=== PATIENT | male | born 1940 | race Caucasian/White ===

== ENCOUNTER → 2018-03-14 | Outpatient (REF) | payer MEDICARE ==
[2018-03-14 19:57] LABS: BASO % 0.4 % (0.0-1.0); EOS # 0.1 10^3/uL (0.0-0.50); EOS % 1.7 % (0.0-3.0); HEMATOCRIT 40.1 % (42.0-52.0); HEMOGLOBIN 13.5 g/dl (13.5-17.5); IMMATURE GRANULOCYTE % 0.4 % (0-3.0); LYMPH # 1.8 10^3/uL (1.5-4.5); LYMPH % 25.4 % (24.0-44.0); MEAN CORPUSCULAR HEMOGLOBIN 32.6 pg (27.0-33.0); MEAN CORPUSCULAR HGB CONC 33.7 g/dl (32.0-36.5); MEAN CORPUSCULAR VOLUME 96.9 fl (80.0-96.0); MONO % 14.6 % (0.0-5.0); NEUTROPHILS # 4.1 10^3/uL (1.8-7.7); NEUTROPHILS % 57.5 % (36.0-66.0); PLATELET COUNT, AUTOMATED 199 10^3/uL (150-450); RED BLOOD COUNT 4.14 10^6/uL (4.30-6.10); RED CELL DISTRIBUTION WIDTH 14.3 % (11.5-14.5); WHITE BLOOD COUNT 7.1 10^3/uL (4.0-10.0)
[2018-03-14 20:17] LABS: ESTIMATED AVERAGE GLUCOSE 123 MG/DL (60-110); HEMOGLOBIN A1c 5.9 %
[2018-03-14 20:23] LABS: ALBUMIN 3.5 GM/DL (3.2-5.2); ALKALINE PHOSPHATASE 89 U/L (45-117); ALT/SGPT 32 U/L (12-78); ANION GAP 9 MEQ/L (8-16); AST/SGOT 23 U/L (7-37); BILIRUBIN,TOTAL 0.3 MG/DL (0.2-1.0); BLOOD UREA NITROGEN 25 MG/DL (7-18); CALCIUM LEVEL 8.7 MG/DL (8.8-10.2); CARBON DIOXIDE LEVEL 26 MEQ/L (21-32); CHLORIDE LEVEL 109 MEQ/L (98-107); CHOLESTEROL LEVEL 210 MG/DL (<200); CHOLESTEROL RISK RATIO 4.772 (<5); CREATININE FOR GFR 1.33 MG/DL (0.70-1.30); GLOMERULAR FILTRATION RATE 55.2 (>42); GLUCOSE, FASTING 114 MG/DL (70-100); HDL CHOLESTEROL 44 MG/DL (>40); LDL CHOLESTEROL 132.8 MG/DL (<100); NON-HDL-C 166 MG/DL; POTASSIUM SERUM 4.4 MEQ/L (3.5-5.1); SODIUM LEVEL 144 MEQ/L (136-145); TRIGLYCERIDES LEVEL 166 MG/DL (<150)
[2018-03-14 20:36] LABS: MALB URINE SIEMENS 16.1 MG/L; MAU/CREAT RATIO 12.2 MCG/MG (0.0-30.0)
== END ==
LOC: M SFHCLERA 15:14
DX: I10 Essential (primary) hypertension (principal); M79.89 Other specified soft tissue disorders; Z51.81 Encounter for therapeutic drug level monitoring; Z79.01 Long term (current) use of anticoagulants; F43.21 Adjustment disorder with depressed mood; Z86.718 Personal history of other venous thrombosis and embolism
CPT/HCPCS: 84443

== ENCOUNTER → 2018-10-03 | Outpatient (REF) | payer MEDICARE ==
[2018-10-03 20:59] LABS: CREATININE FOR GFR 1.52 MG/DL (0.70-1.30); GLOMERULAR FILTRATION RATE 47.2 (>35); POTASSIUM SERUM 4.8 MEQ/L (3.5-5.1)
== END ==
LOC: M SFHCLERA 16:20
PROVIDERS: ATTEND Family Medicine
DX: I10 Essential (primary) hypertension (principal)
CPT/HCPCS: 80048; 90682; G0008; G0463

== ENCOUNTER → 2019-08-04 | Outpatient (REF) | payer MEDICARE ==
[2019-08-04 20:46] LABS: CALCIUM LEVEL 9.3 MG/DL (8.8-10.2); CHOLESTEROL RISK RATIO 5.125 (<5); CREATININE FOR GFR 1.53 MG/DL (0.70-1.30); GLOMERULAR FILTRATION RATE 46.7 (>35); POTASSIUM SERUM 4.1 MEQ/L (3.5-5.1)
== END ==
LOC: M SFHCLERA 16:06
PROVIDERS: ATTEND Family Medicine
DX: I10 Essential (primary) hypertension (principal); Z23 Encounter for immunization
CPT/HCPCS: 80048; 80061; 90682; G0008; G0463

== ENCOUNTER → 2019-08-11 | Outpatient (CLI) | payer MEDICARE ==
--- NOTE | 2019-08-11 08:42 | REP ---
Right lower extremity duplex venous ultrasound: History: History of chronic DVT right lower extremity. No comparison study. Findings: There is a small area of focal wall irregularity in the distal femoral vein with lack of complete. Color Doppler filling. This is compatible with some residual mural thrombus or mural thickening post old DVT. No acute venous thrombosis is seen. The veins are otherwise anechoic and fully compressible on two-dimensional scanning. Color flow imaging is otherwise negative. Spectral Doppler interrogation demonstrates intact respiratory variation in flow normal manual augmentation of flow. Impression: There is no evidence of acute deep venous thrombosis. There is a small 1 cm area of wall thickening in the distal femoral vein which may be a reflection of prior DVT with chronic wall thickening. Electronically Signed by Paul Solorio MD 08/11/2019 09:15 A
== END ==
LOC: M RAD 06:48
PROVIDERS: ATTEND Family Medicine
DX: I82.501 Chronic embolism and thrombosis of unspecified deep veins of right lower extremity (principal)

== ENCOUNTER 2020-07-13 14:09 | Inpatient (IN) | payer MEDICARE ==
[2020-07-13] VITALS (14 sets, daily range): BP systolic 132–168; BP diastolic 58–86
[~2020-07-13] VITALS: Ht 172.7 cm; Wt 67.1 kg
[2020-07-13] MEDS ORDERED: HYDR12CA (14:18)
[2020-07-13] MEDS ORDERED: LISI10TA4 (14:18)
[2020-07-13 14:48] LABS: BASO % 0.4 % (0.0-1.0); EOS # 0.2 10^3/uL (0.0-0.5); LYMPH # 1.7 10^3/uL (1.5-5.0); LYMPH % 20.9 % (24.0-44.0); MEAN CORPUSCULAR HEMOGLOBIN 26.4 pg (27.0-33.0); MEAN CORPUSCULAR HGB CONC 30.4 g/dl (32.0-36.5); MEAN CORPUSCULAR VOLUME 86.8 fl (80.0-96.0); MONO # 1.2 10^3/uL (0.0-0.8); MONO % 14.8 % (0.0-5.0); NEUTROPHILS # 4.8 10^3/uL (1.5-8.5); NEUTROPHILS % 60.3 % (36.0-66.0); PLATELET COUNT, AUTOMATED 239 10^3/uL (150-450)
[2020-07-13 14:54] LABS: HEMATOCRIT 19.1 % (42.0-52.0)
[2020-07-13 14:56] LABS: HEMOGLOBIN 5.8 g/dl (13.5-17.5)
[2020-07-13] MEDS ORDERED: PANTOPRAZOLE 40MG VIAL (C9113 PER 1) IV ONE (15:00)
[2020-07-13 15:04] LABS: INR 1.09; PROTHROMBIN TIME 14.3 SECONDS (12.5-14.3)
[2020-07-13 15:05] LABS: PARTIAL THROMBOPLASTIN TIME 28.9 SECONDS (24.2-38.5)
[2020-07-13 15:17] LABS: ALBUMIN 2.5 GM/DL (3.2-5.2); ALT/SGPT 10 U/L (12-78); BILIRUBIN,DIRECT < 0.1 MG/DL (0.0-0.2); BILIRUBIN,TOTAL 0.2 MG/DL (0.2-1.0); BLOOD UREA NITROGEN 54 MG/DL (7-18); CALCIUM LEVEL 8.2 MG/DL (8.8-10.2); CARBON DIOXIDE LEVEL 24 MEQ/L (21-32); CHLORIDE LEVEL 106 MEQ/L (98-107); CK-MB VALUE MASS 1.6 NG/ML (<3.6); CPK CREATINE PHOSPHOKINASE 87 U/L (39-308); CREATININE FOR GFR 3.03 MG/DL (0.70-1.30); GLOMERULAR FILTRATION RATE 21.2 (>35); GLUCOSE, FASTING 127 MG/DL (70-100); MB/CK RELATIVE INDEX 1.84 (< OR =4); SODIUM LEVEL 139 MEQ/L (136-145); TOTAL PROTEIN 6.2 GM/DL (6.4-8.2); TROPONIN I < 0.02 NG/ML (< 0.10)
[2020-07-13] MEDS: NS 1,000 ML IV SCH (15:37)
[2020-07-13] MEDS ORDERED: NS 1,000 ML IV SCH (15:45)
--- NOTE | 2020-07-13 16:00 | HPEPDOC ---
[facility] Medical History & Physical Date of Admission Jul 13, 2020 Date of Service: Jul 13, 2020 History and Physical CHIEF COMPLAINT: Sent by PCP for symptomatic anemia, abnormal Hgb. HISTORY OF PRESENT ILLNESS: 80 yo male sent by his PCP on routine follow up of blood work which showed anemia with Hgb 6.1 in office. Patient does note one week of dizziness and light headedness. He is not sure if he is taking any blood thinners. He was diagnosed with an unprovoked RLE DVT in 2012, and was on Xarelto. The DOAC was discontinued secondary to lower GI bleed/melena? bleeding risk? in August 2019. He is not aware currently of any bloody stools. Physical exam in ED did reveal gross blood in the rectal vault. He denies chest pain, changes in vision, falls. PAST MEDICAL HISTORY: #unprovoked DVT - RLE - 2012, DOAC was discontinued August 2019 due to high risk of bleeding as per PCP notes #HTN ALLERGIES: Please see below. REVIEW OF SYSTEMS: Negative except as per HPI. HOME MEDICATIONS: Please see below. PHYSICAL EXAMINATION: VITAL SIGNS: See below General: NAD, lying comfortably in bed HEENT: NC/AT, EOMI,k poor dentition Lungs: CTA B/L Heart: +S1S2, RRR Abd: soft, NT, +BS Ext: no edema LABORATORY DATA: See below. MICROBIOLOGY: Please see below. ASSESSMENT: 80 yo male sent from his PCP for symptomatic anemia, with PMHx of unprovoked RLE DVT, HTN. #acute blood loss anemia - transfuse PRBC - serial H/H - surgery consultation for possible scope - NPO/IV fluids #HTN - holding home medications - lisinopril, HCTZ #OMAR/CKD - follow BMP - hold nephrotoxic meds - CT A/P when H/H improved, or consider bedside US #DVT prophylaxis - mechanical Vital Signs Vital Signs Date Time Temp Pulse Resp B/P (MAP) Pulse Ox O2 Delivery O2 Flow Rate FiO2 07/13/20 15:52 16 07/13/20 15:45 132/61 (84) 07/13/20 15:39 78 98 07/13/20 14:09 99.1 Room Air Laboratory Data Labs 24H Laboratory Tests 2 07/13/20 14:39: Immature Granulocyte % (Auto) 0.6, Neutrophils (%) (Auto) 60.3, Lymphocytes (%) (Auto) 20.9L, Monocytes (%) (Auto) 14.8H, Eosinophils (%) (Auto) 3.0, Basophils (%) (Auto) 0.4, Neutrophils # (Auto) 4.8, Lymphocytes # (Auto) 1.7, Monocytes # (Auto) 1.2H, Eosinophils # (Auto) 0.2, Basophils # (Auto) 0.0, Nucleated Red Blood Cells % (auto) 0.0, Prothrombin Time 14.3H, Prothromb Time International Ratio 1.09, Activated Partial Thromboplast Time 28.9, Anion Gap 9, Glomerular Filtration Rate 21.2L, Calcium Level 8.2L, Total Bilirubin 0.2, Direct Bilirubin < 0.1, Aspartate Amino Transf (AST/SGOT) 14, Alanine Aminotransferase (ALT/SGPT) 10L, Alkaline Phosphatase 67, Total Creatine Kinase 87, Creatine Kinase MB 1.6, Creatine Kinase MB Relative Index 1.84, Troponin I < 0.02, Total Protein 6.2L, Albumin 2.5L, Albumin/Globulin Ratio 0.7 CBC/BMP Laboratory Tests 07/13/20 14:39 Home Medications Scheduled PRN Acetaminophen (Tylenol Extra Strength) 500 Mg Tablet, 500 MG PO Q6H PRN for HEADACHE Miscellaneous Medications Hydrochlorothiazide (Hydrochlorothiazide) 12.5 Mg Capsule Lisinopril (Lisinopril) 10 Mg Tablet Allergies Coded Allergies: sulfamethoxazole (Verified Allergy, Unknown, 07/13/20) A-FIB/CHADSVASC A-FIB History Current/History of A-Fib/PAF?: No Current PO Anticoag Therapy: ELLIE North MD Jul 13, 2020 16:00
[2020-07-13] MEDS ORDERED: ACET-897 PO (16:38)
--- NOTE | 2020-07-13 20:53 | ECGEPIP ---
[facility] - ED Test Date: 2020-07-13 Pat Name: MANJIT BLAKE Department: Room: - Gender: Male Election Clerk: JTerese : 1940 Requested By: HUMBERTO Haywood Order Number: [id number] Reading MD: Fela Chaudhry Measurements Intervals [place] Rate: 79 P: 53 AR: 146 QRS: 0 QRSD: 85 T: 17 QT: 362 QTc: 417 Interpretive Statements SINUS RHYTHM NO PRIOR Electronically Signed on 07-13-2020 20:53:26 EDT by Fela Chaudhry
[2020-07-13 21:21] LABS: HEMOGLOBIN 8.4 g/dl (13.5-17.5)
[2020-07-14] VITALS (12 sets, daily range): BP systolic 128–156; BP diastolic 60–78
[2020-07-14] MEDS: NS 1,000 ML IV SCH ×4 (00:06→20:47)
[2020-07-14 04:59] LABS: HEMATOCRIT 23.9 % (42.0-52.0); HEMOGLOBIN 7.6 g/dl (13.5-17.5); MEAN CORPUSCULAR HEMOGLOBIN 26.8 pg (27.0-33.0); MEAN CORPUSCULAR HGB CONC 31.8 g/dl (32.0-36.5); MEAN CORPUSCULAR VOLUME 84.2 fl (80.0-96.0); PLATELET COUNT, AUTOMATED 190 10^3/uL (150-450); RED BLOOD COUNT 2.84 10^6/uL (4.30-6.10); WHITE BLOOD COUNT 6.6 10^3/uL (4.0-10.0)
[2020-07-14 05:26] LABS: BILIRUBIN,TOTAL 0.4 MG/DL (0.2-1.0); CALCIUM LEVEL 7.7 MG/DL (8.8-10.2); CREATININE FOR GFR 3.65 MG/DL (0.70-1.30); GLOMERULAR FILTRATION RATE 17.1 (>35); POTASSIUM SERUM 4.1 MEQ/L (3.5-5.1); TOTAL PROTEIN 5.6 GM/DL (6.4-8.2)
[2020-07-14] MEDS: PANTOPRAZOLE 40MG VIAL (C9113 PER 1) IV SCH ×2 (08:48→20:47)
--- NOTE | 2020-07-14 10:02 | IPNPDOC ---
Text Note Date of Service The patient was seen on 07/14/20. NOTE Subjective: Patient seen and examined at bedside. No acute overnight events reported. No new medical complaints. Patient states he had a bowel movement, reported to be sae in color. Objective: VITAL SIGNS: See below General: NAD, lying comfortably in bed, in good spirits HEENT: NC/AT, EOMI, poor dentition Lungs: CTA B/L Heart: +S1S2, RRR Abd: soft, NT, +BS Ext: no edema ASSESSMENT: 80 yo male sent from his PCP for symptomatic anemia, with PMHx of unprovoked RLE DVT, HTN. #acute blood loss anemia - s/p 2 units PRBC - serial H/H - surgery consultation for scope - NPO/IV fluids - in ED reported to have bright red blood in rectal vault, last BM reported to be sae in color #HTN - holding home medications - lisinopril, HCTZ #OMAR/CKD - creatinine worsened - follow BMP - hold nephrotoxic meds - UA pending - nephrology c/s pending - CT A/P when H/H improved, or consider bedside US #DVT prophylaxis - mechanical VS,Fishbone, I+O VS, Fishbone, I+O Laboratory Tests 07/13/20 14:39 07/13/20 21:07 07/14/20 04:48 Vital Signs Date Time Temp Pulse Resp B/P (MAP) Pulse Ox O2 Delivery O2 Flow Rate FiO2 07/14/20 08:00 98.4 65 16 145/69 (94) 97 Room Air I&O- Last 24 Hours up to 6 AM 07/14/20 06:00 Intake Total 3395 ml Balance 3395 ml ELLIE THOMAS MD Jul 14, 2020 10:02
[2020-07-14 10:32] LABS: FOLATE 19.5 NG/ML (>5.4)
--- NOTE | 2020-07-14 10:42 | CR ---
DATE OF CONSULTATION: 07/13/2020 REASON FOR CONSULTATION: Requesting by Dr. Mehta in the Intensive Care Unit for marked anemia and possible gastrointestinal (GI) bleeding. HISTORY OF PRESENT ILLNESS: The patient is an 80-year-old man who was admitted from the emergency department by Dr. Mehta today for marked anemia. He had been seen by his primary physician last or Sunday, the or 09 of July. Some blood work was ordered which was done on the and revealed a markedly low hemoglobin. He was called and advised to report to the emergency department. In the [facility] Emergency Department at approximately 2:30 in the afternoon on the , he had a CBC that showed a hemoglobin of 5.8 with a hematocrit of 19. He was therefore admitted by the hospitalist for management with transfusion. The patient does report that he has had some lightheadedness recently. He has noted some dark stool but with me denied having noted any definite bleeding. He does report that he has had problems with leakage of stool and incontinence of stool over the last six months or so. He does report that over the last few months he has also had two episodes of falling perhaps most recently about a month ago though he is somewhat unclear on the timing. He denies any abdominal pain and has had no nausea or vomiting. He has been eating well. So far he has received 2 units of packed red blood cells and is pending recheck of his hemoglobin and hematocrit. The patient does report that his father had colon cancer at about age 79. The patient reports he has never had a colonoscopy though it was apparently recommended at several points in his care. MEDICATIONS PRIOR TO ADMISSION: - Lisinopril 10 mg p.o. daily - Hydrochlorothiazide 12.5 mg daily - Tylenol as needed for headache ALLERGIES: Only reported allergy is to SULFAMETHAXOZOLE. SURGICAL HISTORY: Entirely negative. MEDICAL HISTORY: The patient has a history of hypertension. He had a right lower extremity deep venous thrombosis back in 2012 for which he received anticoagulation. This was discontinued in August of 2019 as it was apparently estimated that his risk of bleeding was perhaps higher than his risk from a repeat DVT. FAMILY HISTORY: Significant in that his father had colon cancer. SOCIAL HISTORY: The patient denies any smoking. He denies significant alcohol use. The patient lives alone in a trailer home. He has been responsible for all of his own mowing and snow blowing but is now feeling somewhat weaker and has been using a cane for ambulation and feeling less secure at home. REVIEW OF SYSTEMS: Shows no chest pain or palpitations. He denies seizure or stroke. He does report some pain in his hips with ambulation with weakness in the muscles. He has been very troubled by some loss of control of his bowel and bladder function over the last six months or so. He has bee n able to eat and denies any nausea or vomiting, fevers or chills. PHYSICAL EXAMINATION: General: A somewhat frail-appearing older man. He is lying quietly on the hospital bed when I walked in. His most recent vital signs show a temperature of 98.4, pulse of 67, respirations of 20 and a blood pressure of 152/73. Skin is warm and dry. He does appear somewhat disheveled and unshaven. His teeth are in poor repair. Sclerae are anicteric. Neck is without bruits or mass. Heart exam shows a regular rhythm. The lungs show clear breath sounds bilaterally. The abdomen is quite protuberant. He has bowel sounds present. The abdomen is nontender to palpation and is soft. There is no definite hernia identified. Genital and rectal exams are deferred at this time. Extremities show no edema and he has palpable radial and dorsalis pedis pulses bilaterally. LABORATORY DATA: Laboratory studies show a hemoglobin of 5.8, hematocrit of 19 and a white count of 8.0 at the time of admission. His platelet count is 239 and the differential count shows 60% neutrophils, 21% lymphocytes and 15% monocytes. Chemistry profile showed sodium 139, potassium 4.0, chloride 106, CO2 of 24, BUN of 54, creatinine 3.0 and a glucose of 127. Liver function tests are normal. Total protein is 6.2 with an albumin of 2.5. Coagulation studies show a PT of 14.3 but an INR of 1.0. Review of the patient's records over the last two years showed that his chemistries revealed a BUN of 28 and a creatinine of 1.5 on his last available labs in August of 2019. IMPRESSION: The patient has fairly marked anemia with a hemoglobin of 5.8 and a hematocrit of 19. He has not had any obvious brisk bleeding but has noted some dark stool. He has been somewhat lightheaded at times recently and did have two falls within the last couple months. He has some degree of chronic kidney disease with a normal BUN one year ago of 28 and a creatinine of 1.5 and those have now elevated to 54 and 3.0. It is unclear how much of this represents an acute change possibly related to bleeding and how much of this might represent a chronic decrease in his renal function. The patient has a family history of colon cancer in his father and has noted some changes in his bowel habits with loss of control of his bowel function over the last six months or so. His abdomen is quite protuberant but I do not feel a definite mass. I think he certainly is at a significant risk for colorectal cancer and this is certainly a very valid concern. PLAN: I discussed with the patient scheduling him for a colonoscopy and possibly an accompanying upper endoscopy to look for any source of bleeding. He is agreeable with this plan although he does allow that if we identified a tumor, he does not believe he would want to have any treatment for it at his age. I certainly agree with a transfusion at this point to get him to a safe level. We will see how his renal functions level out with transfusion and hydration. I will need to find time in the endoscopy schedule and this will likely be within the next 48 hours. DAHLIA
[2020-07-14 13:55] LABS: HEMATOCRIT 24.8 % (42.0-52.0); HEMOGLOBIN 7.9 g/dl (13.5-17.5)
[2020-07-14] MEDS ORDERED: GOLYTELY SOLN 4000 ML BTL PO ONE (19:30)
[2020-07-14 21:52] LABS: CLOSTRIDIUM DIFFICILE PCR NEGATIVE (NEGATIVE)
[2020-07-14 22:32] LABS: HEMATOCRIT 23.7 % (42.0-52.0); HEMOGLOBIN 7.5 g/dl (13.5-17.5)
[2020-07-15] VITALS (7 sets, daily range): BP systolic 140–153; BP diastolic 47–78
[2020-07-15 05:52] LABS: HEMOGLOBIN 7.5 g/dl (13.5-17.5); MEAN CORPUSCULAR HEMOGLOBIN 26.5 pg (27.0-33.0); MEAN CORPUSCULAR HGB CONC 31.3 g/dl (32.0-36.5); MEAN CORPUSCULAR VOLUME 84.8 fl (80.0-96.0); PLATELET COUNT, AUTOMATED 189 10^3/uL (150-450); RED BLOOD COUNT 2.83 10^6/uL (4.30-6.10)
[2020-07-15 06:12] LABS: CALCIUM LEVEL 7.7 MG/DL (8.8-10.2); CREATININE FOR GFR 5.27 MG/DL (0.70-1.30); GLOMERULAR FILTRATION RATE 11.2 (>35); POTASSIUM SERUM 4.8 MEQ/L (3.5-5.1)
[2020-07-15] MEDS ORDERED: propofoL 200 MG/20 ML VIAL As Ordered ONE ×2 (07:20→18:03)
[2020-07-15] MEDS ORDERED: LIDOCAINE 2% 100MG/5ML SDV (FOR ANES.) As Ordered ONE (07:20)
--- NOTE | 2020-07-15 08:00 | CR ---
DATE OF CONSULTATION: 07/14/2020 CONSULTATION REQUESTED BY: Hugo Mehta M.D. REASON FOR CONSULTATION: Acute renal failure. HISTORY OF PRESENT ILLNESS: Mr. Sosa is an 80-year-old gentleman with known history of prior DVT, hypertension and chronic kidney disease. He is admitted due to severe anemia as he was noticed to have a hemoglobin of 6.1 by his primary care physician. He was sent to the Emergency Room and has been admitted. He has been transfused and currently waiting for possible endoscopy. Patient was on Xarelto for history of DVT in 2012, which is currently on hold. A nephrology consultation was requested this morning and patient is seen in the Intensive Care Unit on his bedside. PAST MEDICAL AND SURGICAL HISTORY: Significant for: 1. History of DVT in right lower extremity in 2013. 2. History of chronic kidney disease at baseline. 3. History of hypertension. FAMILY HISTORY: Noncontributory for this admission. PERSONAL AND SOCIAL HISTORY: Patient denies any alcohol or drug use. ALLERGIES: Patient has allergy to sulfa. HOME MEDICATIONS: Included: 1. Lisinopril 10 mg daily. 2. Hydrochlorothiazide 12.5 mg daily. 3. Tylenol as needed for pain. 4. Xarelto. REVIEW OF SYSTEMS: At present, patient denies any dyspnea, chest pain, fever or chills. Ears, Nose and Throat unremarkable. He denies any headache. Respiratory system is negative for cough or hemoptysis. GI system is significant for hemorrhoids with history of bleeding. He denies any black colored stools. There is no nausea or vomiting. system is significant for decreased urine output. Musculoskeletal system is negative for leg edema. He denies any use of NSAID. Endocrine system negative for diabetes or thyroid problems. Hematological system is significant for severe anemia, requiring transfusions. Psychosocial system negative for depression or anxiety. Neurological system negative for seizures or stroke. Skin is negative for rash or ulcers. PHYSICAL EXAMINATION: GENERAL: An elderly gentleman lying in the bed without any acute distress. VITALS: Temperature 98.4 degrees Fahrenheit, heart rate 65 per minute, respiratory rate 16 per minute, blood pressure 145/69 mmHg and oxygen saturation 97% on room air. HEENT: Head is atraumatic. Neck is supple and without JVD or thyroid enlargement. Pupils equal and reactive to light. Sclerae anicteric. HEART: Sounds are regular. LUNGS: Sound clear to auscultation. ABDOMEN: Soft and nontender. Bowel sounds are normal. There is no palpable organomegaly. EXTREMITIES: No cyanosis or clubbing. NEUROLOGIC: He is awake, alert and oriented x3. LABORATORY DATA: On admission, hemoglobin 5.8 and hematocrit 19. Platelets 239,000. Today hemoglobin 7.9 and hematocrit 24.8. Sodium 141, potassium 4.1, CO2 21, BUN 58, creatinine 3.65, calcium 7.7. Iron 116, saturation 45%. Total protein 5.6 and albumin 2.0. LDH 188. There is no urinalysis at this point. PROBLEMS: 1. Acute renal failure possibly superimposed on chronic kidney disease: Most likely this is related to acute blood loss and severe anemia. He was most likely dehydrated. Patient was also using JONNY inhibitor and diuretic at home. I agree with stopping both the JONNY inhibitor and diuretic. I will recommend aggressive I.V. fluid hydration in addition to transfusion to maintain his hemoglobin above 8 and systolic blood pressure about 130 mmHg. A urinalysis is being ordered to further assess his baseline kidney function for possible proteinuria or hematuria. 2. Hypertension: Blood pressure is reasonably well controlled and at this point I will hold off on diuretic and JONNY inhibitor. 3. Acute blood loss anemia: Patient has been transfused and is likely to require further transfusion. I would suggest to maintain his hemoglobin at least above 8.0. He is n.p.o. at present, waiting for possible endoscopy. He is quite upset about being n.p.o. Thank you for involving me in the care of Mr. Sosa. I will follow him along with you. DAHLIA
[2020-07-15] MEDS ORDERED: FUROSEMIDE 100MG/10ML VIAL (J1940) IV ONE (09:45)
[2020-07-15] MEDS: PANTOPRAZOLE 40MG VIAL (C9113 PER 1) IV SCH (10:12)
--- NOTE | 2020-07-15 10:17 | IPNPDOC ---
Text Note Date of Service The patient was seen on 07/15/20. NOTE Subjective: Patient seen and examined at bedside. No acute overnight events reported. No new medical complaints. Objective: VITAL SIGNS: See below General: NAD, lying comfortably in bed, in good spirits HEENT: NC/AT, EOMI, poor dentition Lungs: CTA B/L Heart: +S1S2, RRR Abd: soft, NT, +BS Ext: no edema ASSESSMENT: 80 yo male sent from his PCP for symptomatic anemia, with PMHx of unprovoked RLE DVT, HTN. #acute blood loss anemia - s/p 2 units PRBC - H/H still trending down - transfuse additional 1 PRBC today - surgery consultation for scope - plan for colonoscopy/EGD today - clear liquids #HTN - holding home medications - lisinopril, HCTZ #OMAR/CKD - creatinine worsened - follow BMP - hold nephrotoxic meds - UA noted - nephrology c/s appreciated - CT A/P when H/H improved, or consider bedside US #DVT prophylaxis - mechanical VS,Fishbone, I+O VS, Fishbone, I+O Laboratory Tests 07/14/20 13:46 07/14/20 22:22 07/15/20 05:31 Vital Signs Date Time Temp Pulse Resp B/P (MAP) Pulse Ox O2 Delivery O2 Flow Rate FiO2 07/15/20 06:00 99.4 71 18 140/70 (93) 98 Room Air I&O- Last 24 Hours up to 6 AM 07/15/20 06:00 Intake Total 2910 ml Output Total 210 ml Balance 2700 ml ELLIE THOMAS MD Jul 15, 2020 10:17
--- NOTE | 2020-07-15 14:48 | IPN ---
DATE: 07/15/2020 Mr. Sosa is seen this morning on his bedside. He is sitting in the chair at the time of my visit. He has a Vera catheter, which was placed last night, however, has minimal urine output. Patient denies any dyspnea or chest pain. He is waiting for endoscopy today. He was transfused 2 units of packed red blood cells (RBCs) yesterday due to a hemoglobin of 7.5. He denies any dyspnea or chest pain at present. He has no nausea or vomiting and is tolerating liquids orally well. PHYSICAL EXAMINATION: Temperature 96.3 degrees Fahrenheit, heart rate 76 per minute, and respiratory rate 20 per minute, blood pressure 148/76 mm of mercury, and oxygen saturation 99% on room air. Head is atraumatic. Neck is supple, and jugular venous distention (JVD) is mildly elevated sitting upright. His lungs sound relatively clear with only few basilar rales. Heart sounds are regular. Abdomen is some, somewhat distended, and bowel sounds are normal. Extremities have no cyanosis or clubbing. Neurologically, he is awake, alert, and oriented times three. Today's labs show WBC count 7.0, hemoglobin 7.5, hematocrit 24.0. Sodium 142, potassium 4.8, CO2 of 20, BUN 66, and creatinine 5.27. His iron level was 116 and saturation 45%. PROBLEMS: 1. Acute renal failure superimposed on chronic kidney disease. Patient has oliguric acute renal failure without any obvious reason. He did not receive any intravenous (IV) contrast and denies using any nonsteroidal anti-inflammatory drugs (NSAIDs). He was not on any nephrotoxic medications at home. In any event, he already has a Vera catheter, so bladder neck obstruction is ruled out. A CT scan of abdomen and pelvis is pending at present. Patient denies any overt uremic symptoms. I have discussed with him and explained to him about potential need for dialysis if his kidney function does not improve. So far, his electrolytes are stable, and he does not seem to have any significant metabolic acidosis. He is clinically not volume overloaded. 2. Anemia. His anemia is stable but not improved. We will give him one more unit of packed RBCs today and followup with his complete blood count (CBC). 3. Hypertension. Blood pressure seems reasonably well controlled. We will continue to monitor closely and adjust his medications as needed. At home he was taking lisinopril and hydrochlorothiazide, and both of them are currently stopped due to acute kidney injury. DAHLIA
[2020-07-15] MEDS ORDERED: fentaNYL 100 MCG/2 ML INJECTION (J3010) As Ordered ONE (17:08)
[2020-07-15] MEDS ORDERED: PHENYLephrine HCL 500 MCG/5 ML (100MCG/ML) SYRINGE (J2370) As Ordered ONE (17:36)
[2020-07-15] MEDS ORDERED: ePHEDrine SULFATE 25 MG/5 ML(5MG/ML) SYRINGE As Ordered ONE (18:03)
--- NOTE | 2020-07-15 19:27 | ROOR ---
Patient Name: Steve Sosa Procedure Date: 07/15/2020 5:43 PM Date of : 1940 Age: 80 Gender: Male Note Status: Finalized Procedure: Colonoscopy Indications: Rectal bleeding, Iron deficiency anemia secondary to chronic blood loss Providers: Wellington Corcoran MD Referring MD: Hugo Mehta MD Requesting Provider: Medicines: Monitored Anesthesia Care Complications: No immediate complications. Procedure: Pre-Anesthesia Assessment: - Prior to the procedure, a History and Physical was performed, and patient medications and allergies were reviewed. The patient is competent. The risks and benefits of the procedure and the sedation options and risks were discussed with the patient. All questions were answered and informed consent was obtained. Patient identification and proposed procedure were verified by the physician, the nurse and the blow molding machine tender in the procedure room. Mental Status Examination: alert and oriented. Prophylactic Antibiotics: The patient does not require prophylactic antibiotics. Prior Anticoagulants: The patient has taken no previous anticoagulant or antiplatelet agents. ASA Grade Assessment: III - A patient with severe systemic disease. After reviewing the risks and benefits, the patient was deemed in satisfactory condition to undergo the procedure. The anesthesia plan was to use monitored anesthesia care (MAC). Immediately prior to administration of medications, the patient was re-assessed for adequacy to receive sedatives. The heart rate, respiratory rate, oxygen saturations, blood pressure, adequacy of pulmonary ventilation, and response to care were monitored throughout the procedure. The physical status of the patient was re-assessed after the procedure. The Colonoscope was introduced through the anus with the intention of advancing to the cecum. The scope was advanced to the descending colon before the procedure was aborted. Medications were given. The colonoscopy was unusually difficult due to excessive bleeding, multiple diverticula in the colon and poor bowel prep with stool present. Successful completion of the procedure was aided by lavage. Findings: The digital rectal exam revealed a rectal mass. There is a large circumferential rectal mass which begins just above the dentate line and extends as far as I can feel. There is old and fresh blood on the examiing finger. Many small and large-mouthed diverticula were found in the sigmoid colon. a large amount of brown stool without blood stool was found in the sigmoid colon, interfering with visualization. Lavage of the area was performed using a moderate amount, resulting in incomplete clearance with continued poor visualization. An infiltrative, sessile and ulcerated non-obstructing large mass was found in the distal rectum. The mass was circumferential. The mass measured eight cm in length. Oozing was present. Biopsies were taken with a cold forceps for histology. Impression: - Rectal mass. - Diverticulosis in the sigmoid colon. - Stool in the sigmoid colon. 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 Biopsied. Recommendation: - Admit the patient to [facility] for ongoing care. Wellington Corcoran MD Wellington Corcoran MD 07/15/2020 7:26:51 PM Electronically signed by Wellington Corcoran MD Number of Addenda: 0 Note Initiated On: 07/15/2020 5:43 PM Estimated Blood Loss: Estimated blood loss was minimal.
[2020-07-15] MEDS: NS 1,000 ML IV SCH (20:18)
--- NOTE | 2020-07-15 23:50 | REPVR ---
PROCEDURE INFORMATION: Exam: CT Abdomen And Pelvis Without Contrast Exam date and time: 07/15/2020 10:55 PM Age: 80 years old Clinical indication: Abdominal pain; Generalized; Additional info: Oliguria, bi bleed, acute kidney injury TECHNIQUE: Imaging protocol: Computed tomography of the abdomen and pelvis without contrast. Radiation optimization: All CT scans at this facility use at least one of these dose optimization techniques: automated exposure control; mA and/or kV adjustment per patient size (includes targeted exams where dose is matched to clinical indication); or iterative reconstruction. COMPARISON: No relevant prior studies available. FINDINGS: Lungs: Slight bibasilar interstitial coarsening with minimal fibro-atelectatic change. Pleural space: Trace left pleural effusion which may be loculated. Liver: There are several hepatic cysts measuring up to 2.2 cm in the cephalad left hepatic lobe with a Hounsfield measurement of -3. Gallbladder and bile ducts: Focal gallbladder fundal contraction with wall thickening. Pancreas: Punctate pancreatic calcifications. Spleen: Normal. No splenomegaly. Adrenals: Normal. No mass. Kidneys and ureters: Small nonobstructing right renal calculus. There is a left renal cyst measuring up to 5.0 cm with a Hounsfield measurement of 2 consistent with a simple cyst. No follow-up is recommended. Prominent bilateral hydronephrosis and hydroureter is which extend to the UVJs. Stomach and bowel: Borderline distention of the stomach with food material. Density at the cecal tip suggesting prior appendectomy. The air-fluid levels throughout the colon. There is colonic diverticulosis without evidence of diverticulitis. Appendix: The appendix is not seen. Intraperitoneal space: Unremarkable. No free air. No significant fluid collection. Vasculature: Unremarkable. No abdominal aortic aneurysm. Lymph nodes: Unremarkable. No enlarged lymph nodes. Urinary bladder: There is prominent distention of the urinary bladder which has a lobular configuration which are likely the distended diverticula. Reproductive: There is moderate enlargement of the prostate, particularly the median lobe. Bones/joints: Healing fractures 10th and 11th ribs posteriorly and the left 8th and 9th ribs laterally. Moderate compression of L2 and mild central compression of T8 and slightly decreased height of T9 and T10 which appear to be chronic. Soft tissues: Small fat filled umbilical hernia. IMPRESSION: 1. Moderate prostatic enlargement, particularly the median lobe. 2. Prominent lobular distention of the urinary bladder which extends above the umbilicus. 3. Prominent bilateral hydronephrosis and hydroureter is to the UVJs which is likely reflection of bladder distention. 4. Minimal nonobstructing right renal calculus. 5. Focal wall thickening and protrusion at the gallbladder fundus suggesting adenomyomatosis. 6. Slight bibasilar interstitial coarsening with minimal fibro-atelectatic change and trace left pleural effusion which appears loculated. There are adjacent healing fractures of several lower left ribs. 7. Punctate pancreatic calcifications suggesting previous pancreatitis. 8. Air-fluid levels throughout much of the colon suggesting diarrhea. 9. Colonic diverticulosis without diverticulitis. COMMENTS: Consistent with the [employer]'s Incidental Findings Committee white paper (J Am Aislinn Radiol 2018): Any incidental renal lesion less than 1 cm or classified as too small to characterize, or any incidental cystic renal lesion characterized as simple-appearing, is likely benign. No follow-up imaging is recommended for these lesions per consensus recommendations based on imaging criteria. Electronically signed by: Homero Malloy On 07/15/2020 23:50:30 PM
[2020-07-16 00:23] LABS: HEMATOCRIT 26.5 % (42.0-52.0); HEMOGLOBIN 8.4 g/dl (13.5-17.5)
[2020-07-16 06:00] VITALS: BP 145/75
[2020-07-16 08:05] LABS: HEMATOCRIT 26.7 % (42.0-52.0); HEMOGLOBIN 8.7 g/dl (13.5-17.5); MEAN CORPUSCULAR HEMOGLOBIN 27.6 pg (27.0-33.0); MEAN CORPUSCULAR HGB CONC 32.6 g/dl (32.0-36.5); MEAN CORPUSCULAR VOLUME 84.8 fl (80.0-96.0); PLATELET COUNT, AUTOMATED 160 10^3/uL (150-450); RED BLOOD COUNT 3.15 10^6/uL (4.30-6.10); WHITE BLOOD COUNT 7.6 10^3/uL (4.0-10.0)
[2020-07-16 08:35] LABS: CALCIUM LEVEL 7.8 MG/DL (8.8-10.2); GLOMERULAR FILTRATION RATE 11.9 (>35); POTASSIUM SERUM 4.7 MEQ/L (3.5-5.1)
--- NOTE | 2020-07-16 09:32 | SMCUROLCON ---
Urology Consultation General Date of Consultation 07/16/20 Reason For Consultation This patient is seen for Acute Anemia, Acute Renal Failure, Gi Bleeding. 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 I'm asked by Dr. Melgoza to see the patient for an abnormal appearing CAT scan showing a dilated bladder. The patient is been on straight cath with 2 L removed on 2 occasions last night. His creatinine has gone from 3-5 during this hospital stay. He reports that he has been voiding and is not felt that his bladder is been particularly full. Pathology is pending from a rectal mass which was biopsied yesterday by GI. Cancer suspected. CT scan is reviewed showing a massively distended bladder with hydroureteronephrosis bilaterally. The patient denies prior urologic history or procedures. Urine culture has grown a fairly sensitive enterococcus organism. . Past Medical History Medical History Hypertension. DVT. Chronic renal insufficiency. Surgical Hstory Colonoscopy with biopsy. Family History Significant Family History: No pertinent family hx Social History * Smoker: non-smoker Alcohol: Denies Drugs: denies Medications Current Medications Current Medications Medications (Trade) Dose Ordered Sig/Sung Route PRN Reason Start Time Stop Time Status Last Admin Dose Admin Home Med (Med Rec Complete!) ASDIRECTED XX 07/13/20 16:45 07/13/20 16:44 DC Pantoprazole Sodium (Protonix) 40 mg BID IV 07/14/20 09:00 07/15/20 18:31 DC 07/15/20 10:12 Sodium Chloride 1,000 ml @ 90 mls/hr Q11H7M IV 07/13/20 15:32 07/14/20 04:54 DC 07/14/20 00:06 Sodium Chloride 1,000 ml @ 90 mls/hr Q11H7M IV 07/13/20 15:45 07/14/20 04:49 DC Sodium Chloride 1,000 ml @ 90 mls/hr Q11H7M IV 07/14/20 05:00 07/15/20 20:18 Allergies Allergies: Coded Allergies: sulfamethoxazole (Verified Allergy, Unknown, 07/13/20) Review of Systems General: Reports: Fatigue, Malaise Constitutional: Reports: Weakness, Malaise; Denies: Fever, Chills Eyes: Denies: Pain, Vision change ENT: Denies: Head Aches, Ear Pain Skin: Denies: Rash, Lesions Pulmonary: Denies: Dyspnea, Cough Cardiovascular: Denies Chest Pain, Denies Palpitations; Reports Lt Headedness Gastrointestinal: Reports: Abdominal Pain, Constipation, Hematochezia; Denies: Nausea, Vomiting Genitourinary: Reports: Frequency, Incontinence; Denies: Dysuria, Hematuria Hematologic: Denies: Bruising Endocrine: Denies: Polydipsia Neurological: Reports: Weakness; Denies: Change in Speech, Confusion Psych: Reports: Mood Normal Physical Examination General Exam: Alert, Cooperative, No Acute Distress EYE EXAM: PERRLA, Conjunctiva & lids normal, EOMI ENT EXAM: Atraumatic, Mucous membr. moist/pink, Nares Patent, Pinna Normal Neck Exam: Supple Chest Exam: Clear to auscultation, Normal air movement Heart Exam: Rate Normal, Regular Rhythm Abdomen Exam: Normal Bowel Sounds, Soft, Mass (consistent with bladder) Male Exam: Normal Genital Exam; No: Discharge, Hernia Male Exam Rectal exam markedly abnormal rectal mass. Prostate is difficult to palpate. No active bleeding. Skin Exam: Nl turgor and temperature; No: Rash Neuro Exam: Normal Speech, Cranial Nerves 3-12 NL Psych Exam: Mental status NL, Mood NL Vital Signs/I&O Vital Signs Date Time Temp Pulse Resp B/P (MAP) Pulse Ox O2 Delivery O2 Flow Rate FiO2 07/16/20 06:00 97.3 78 18 145/75 (98) 98 Room Air l I&O- Last 24 Hours up to 6 AM 07/16/20 05:59 Intake Total 1105 ml Output Total 2175 ml Balance -1070 ml Laboratory Data 24H Labs Laboratory Tests 2 07/16/20 07:48: Nucleated Red Blood Cells % (auto) 0.0, Anion Gap 11, Glomerular Filtration Rate 11.9L, Calcium Level 7.8L CBC/BMP Laboratory Tests 07/16/20 00:10 07/16/20 07:48 Microbiology Microbiology 07/14/20 Urine Culture - Final, Complete Enterococcus Faecalis Assessment Impression: Rectal cancer. Urinary retention with post renal azotemia. Plan: Vera catheter placement. Observe for postobstructive diuresis. We will eventually need endoscopic evaluation. He will likely need a period of time of bladder decompression to regain bladder tone. I will discuss the patient with Dr. Whaley, who will be following him up going forward. Thank you for this consult. CHANELL RAIN MD Jul 16, 2020 09:32
--- NOTE | 2020-07-16 12:09 | IPNPDOC ---
Text Note Date of Service The patient was seen on 07/16/20. NOTE Subjective: Patient seen and examined at bedside. No acute overnight events reported. No new medical complaints. Objective: VITAL SIGNS: See below General: NAD, lying comfortably in bed, in good spirits HEENT: NC/AT, EOMI, poor dentition Lungs: CTA B/L Heart: +S1S2, RRR Abd: soft, NT, +BS Ext: no edema ASSESSMENT: 80 yo male sent from his PCP for symptomatic anemia, with PMHx of unprovoked RLE DVT, HTN. #acute blood loss anemia - s/p 3 units PRBC - relative stable at this time - s/p colonoscopy - revealed rectal mass #rectal mass - follow as per surgery - suspect will require surgery to remove entire rectum - oncology c/s pending - spoke with Dr. Mejia - assistance appreciated - CT chest pending, CEA pending #liver lesions - cysts? metastatic disease - liver US pending for further eval #prostate disease - PSA screen pending - urology c/s #OMAR/CKD #obstructive uropathy - CT A/P noted from yesterday - minimally improved today - sands catheter place - follow as per urology - creatinine slightly better - follow as per nephrology - assistance appreciated #HTN - holding home medications - lisinopril, HCTZ - if needed will consider amlodipine #DVT prophylaxis - mechanical VS,Fishbone, I+O VS, Fishbone, I+O Laboratory Tests 07/16/20 00:10 07/16/20 07:48 Vital Signs Date Time Temp Pulse Resp B/P (MAP) Pulse Ox O2 Delivery O2 Flow Rate FiO2 07/16/20 06:00 97.3 78 18 145/75 (98) 98 Room Air I&O- Last 24 Hours up to 6 AM 07/16/20 06:00 Intake Total 1105 ml Output Total 2175 ml Balance -1070 ml ELLIE THOMAS MD Jul 16, 2020 12:09
[2020-07-16] MEDS: NS 1,000 ML IV SCH ×3 (12:57→20:27)
[2020-07-16] MEDS ORDERED: CIPROFLOXACIN 200 MG in IV 1 EA IV SCH (13:15)
[2020-07-16 14:00] VITALS: BP 143/74
--- NOTE | 2020-07-16 14:46 | REPVR ---
PROCEDURE INFORMATION: Exam: CT Chest Without Contrast Exam date and time: 07/16/2020 1:08 PM Age: 80 years old Clinical indication: Evaluate metastatic disease. Recently found rectal mass. TECHNIQUE: Imaging protocol: Computed tomography of the chest without contrast. Coronal and sagittal reformats were created and reviewed. 3D rendering (Not supervised by radiologist): MIP and/or 3D reconstructed images were created by the technologist. Radiation optimization: All CT scans at this facility use at least one of these dose optimization techniques: automated exposure control; mA and/or kV adjustment per patient size (includes targeted exams where dose is matched to clinical indication); or iterative reconstruction. COMPARISON: 1. CR Chest, 2 view PA, Lat 09/04/2013 3:[address] ABD PELVIS W/O CONTRAST 07/15/2020 10:49:55 PM FINDINGS: Thyroid: Unremarkable as visualized. Lungs: Small retained secretions or aspirated fluid within the trachea and left mainstem bronchus. Very mild bilateral lower lobe dependent atelectasis. Left upper lobe spiculated solid 6 mm nodule (series 201, image 23). Left upper lobe apical ground-glass 5 mm nodule (image 20). Right lower lobe solid 3 mm nodule (image 55). Right lower lobe solid juxtapleural 4 mm nodule (image 42). There are multiple pulmonary micronodules (measuring less than 3 mm) some examples include: left upper lobe images 17, 26, and 51; right middle lobe image 66. Pleural space: Very small dependently layering low-attenuation bilateral pleural effusions. No pneumothorax. Mild biapical pleural/parenchymal scarring. Heart: Coronary arterial atherosclerotic calcifications are present. Heart size is within normal limits. No pericardial effusion. Mediastinal space: The esophagus is unremarkable. Pulmonary arteries: The main pulmonary arterial trunk is dilated measuring 3.2 cm in diameter. Aorta: Tortuous thoracic aorta. Moderate aortic atherosclerosis. Mild fusiform dilatation of the proximal descending thoracic aorta measuring 3.2 cm in diameter. Aortic root calcifications are present. Lymph nodes: No adenopathy by CT size criteria. Liver: The liver is incompletely imaged. Multiple hypoattenuating hepatic lesions are redemonstrated, possibly cysts. These are not further characterized in the absence of intravenous contrast. Kidneys and ureters: The kidneys are incompletely imaged. Bilateral hydronephrosis is redemonstrated. Incompletely imaged right nephrolithiasis. Left kidney upper pole homogeneous hypoattenuating lesions consistent with simple-appearing cysts are redemonstrated. Bones/joints: The bones appear diffusely demineralized. Multiple subacute-appearing bilateral rib fractures. T8 vertebral body superior endplate Schmorl node. No aggressive-appearing osseous lesion. Soft tissues: Mild dependent body wall edema. IMPRESSION: 1. Multiple nonspecific pulmonary nodules, the largest measuring 6 mm. Primary pulmonary neoplasms or metastases are not excluded. Fleischner Society follow-up recommendations do not apply in a patient with a history of known malignancy. Follow-up is needed per the patient's medical condition. 2. Very small bilateral pleural effusions. 3. Central pulmonary arterial enlargement suggestive of pulmonary hypertension. 4. Mild fusiform dilatation of the descending thoracic aorta measuring 3.2 cm in diameter. 5. Please see the body of the report for other findings as described. Electronically signed by: Edvin Eric On 07/16/2020 14:46:14 PM
[2020-07-16] MEDS: CIPROFLOXACIN 200 MG in IV 1 EA IV SCH (16:12)
--- NOTE | 2020-07-16 18:28 | REPVR ---
PROCEDURE INFORMATION: Exam: US Abdomen, Limited; Right Upper Quadrant Exam date and time: 07/16/2020 6:12 PM Age: 80 years old Clinical indication: Abnormal findings; Abnormal radiologic finding of the abdomen; Radiologic exam and body structure: CT abdomen/pelvis; Additional info: Further eval liver cysts on CT TECHNIQUE: Imaging protocol: US abdomen. Real time ultrasound with image documentation. Limited exam focused on the right upper quadrant. COMPARISON: CT ABD PELVIS W/O CONTRAST 07/15/2020 10:49 PM FINDINGS: Liver: Scattered simple cysts, measuring up to 2.3 x 1.5 x 2.6 cm in the left hepatic lobe. Gallbladder: No gallstones. No gallbladder wall thickening or pericholecystic fluid. 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 Common bile duct: No stones. No ductal dilatation. Pancreas: Unremarkable as visualized. Right kidney: 1 x 0.6 x 0.8 cm cyst in the midportion. No solid mass. No definite stones. Moderate hydronephrosis. IMPRESSION: 1. Moderate right-sided hydronephrosis. 2. Scattered simple hepatic cysts. 3. Additional findings, as above. Electronically signed by: Josias Pacheco On 07/16/2020 18:28:35 PM
[2020-07-16 22:00] VITALS: BP 169/79
[2020-07-17] MEDS: CIPROFLOXACIN 200 MG in IV 1 EA IV SCH ×2 (04:36→15:07)
[2020-07-17 06:00] VITALS: BP 153/76
[2020-07-17 07:07] LABS: CALCIUM LEVEL 7.3 MG/DL (8.8-10.2); CREATININE FOR GFR 2.91 MG/DL (0.70-1.30); GLOMERULAR FILTRATION RATE 22.2 (>35); POTASSIUM SERUM 3.9 MEQ/L (3.5-5.1)
[2020-07-17 07:10] LABS: HEMATOCRIT 25.6 % (42.0-52.0); HEMOGLOBIN 8.2 g/dl (13.5-17.5); MEAN CORPUSCULAR HEMOGLOBIN 27.3 pg (27.0-33.0); MEAN CORPUSCULAR VOLUME 85.3 fl (80.0-96.0); PLATELET COUNT, AUTOMATED 163 10^3/uL (150-450)
--- NOTE | 2020-07-17 09:27 | IPNPDOC ---
Text Note Date of Service The patient was seen on 07/17/20. NOTE Subjective: Patient seen and examined at bedside. No acute overnight events reported. No new medical complaints. Still have rectal bleed. Objective: VITAL SIGNS: See below General: NAD, lying comfortably in bed, in good spirits HEENT: NC/AT, EOMI, poor dentition Lungs: CTA B/L Heart: +S1S2, RRR Abd: soft, NT, +BS Ext: no edema ASSESSMENT: 80 yo male sent from his PCP for symptomatic anemia, with PMHx of unprovoked RLE DVT, HTN. Found to have rectal mass, with obstructive uropathy. #acute blood loss anemia - s/p 3 units PRBC - relative stable at this time - s/p colonoscopy - revealed rectal mass #rectal mass - discussed with surgery - suspect will require surgery to remove entire rectum - oncology c/s pending - spoke with Dr. Mejia - assistance appreciated - myers rgery if continued bleeding, RT/chemo otherwise - CT chest shows multiple small pulmonary nodules - cannot exclude metastatic disease - CEA WNL #hypernatremia - IV fluids - follow as per nephrology - assistance appreciated #post-obstructive diuresis/urinary retention - s/p sands catheter - follow as per urology - assistance appreciated #liver lesions - cysts? metastatic disease - liver US show simple cysts #prostate disease - PSA screen elevated - urology c/s #OMAR/CKD #obstructive uropathy - CT A/P noted from yesterday - much improved today - sands catheter place - follow as per urology #UTI - continue antibiotics #HTN - holding home medications - lisinopril, HCTZ - if needed will consider amlodipine #DVT prophylaxis - mechanical VS,Fishbone, I+O VS, Fishbone, I+O Laboratory Tests 07/17/20 05:47 07/17/20 05:48 Vital Signs Date Time Temp Pulse Resp B/P (MAP) Pulse Ox O2 Delivery O2 Flow Rate FiO2 07/17/20 06:00 98.2 78 18 153/76 (101) 97 Room Air I&O- Last 24 Hours up to 6 AM 07/17/20 06:00 Intake Total 540 ml Output Total 7200 ml Balance -6660 ml ELLIE THOMAS MD Jul 17, 2020 09:27
[2020-07-17] MEDS: KCL 20MEQ IN D5W 1000ML 1,000 ML IV SCH ×2 (10:17→17:33)
--- NOTE | 2020-07-17 13:50 | IPNPDOC ---
Subjective Date Seen The patient was seen on 07/17/20. Subjective Chief Complaint/HPI Urinary retention General: Reports: Normal Appetite; Denies: Chills, Night Sweats, Fatigue, Malaise Constitutional: Denies: Chills, Fever, Night Sweats Eyes: Denies: Pain, Vision change ENT: Denies: Head Aches, Ear Pain, Dysphagia Skin: Denies: Rash, Lesions, Breakdown Pulmonary: Denies: Dyspnea, Cough Cardiovascular: Denies: Chest Pain, Palpitations, Orthopnea, Paroxysmal Noc. Dyspnea, Lt Headedness Gastrointestinal: Denies: Nausea, Vomiting, Abdominal Pain, Diarrhea, Constipation Genitourinary: Denies: Dysuria, Frequency, Incontinence, Retention Hematologic: Denies: Bruising, Bleeding Excessively Musculoskeletal: Denies: Neck Pain, Back Pain, Joint Pain, Muscle Pain, Spasms Neurological: Denies: Weakness, Numbness, Change in speech, Confusion Psych: Reports: Mood Normal; Denies: Depression, Memory Issues Objective Physical Examination ENT Exam: Positive: Atraumatic, Mucous membr. moist/pink, Nares Patent, Pinna Normal Abdomen Exam: Positive: Normal bowel sounds, Soft; Negative: Tenderness, Hepatospenomegaly Male Exam: Positive: Normal Genital Exam Assessment /Plan Assessment Patient is tolerating the sands well and urine output yesterday was 5400 cc. Pt is keeping up with losses. Plan/VTE VTE Prophylaxis Ordered?: No Plan Plan to continue sands cath for now and monitor urine output for post obstructive diuresis. May need further urologic evaluation later. Could be done as outpatient. VS, I&O, 24H, Fishbone Vital Signs/I&O Vital Signs Date Time Temp Pulse Resp B/P (MAP) Pulse Ox O2 Delivery O2 Flow Rate FiO2 07/17/20 06:00 98.2 78 18 153/76 (101) 97 Room Air I&O- Last 24 Hours up to 6 AM 07/17/20 06:00 Intake Total 540 ml Output Total 7200 ml Balance -6660 ml Laboratory Data 24H LABS Laboratory Tests 2 07/17/20 05:47: Anion Gap 8, Glomerular Filtration Rate 22.2L, Calcium Level 7.3L 07/17/20 05:48: Nucleated Red Blood Cells % (auto) 0.0 CBC/BMP Laboratory Tests 07/17/20 05:47 07/17/20 05:48 Microbiology Microbiology 07/14/20 Urine Culture - Final, Complete Enterococcus Faecalis ELOY DAVID MD Jul 17, 2020 13:48
[2020-07-17 14:00] VITALS: BP 149/75
[2020-07-17 14:44] LABS: ALBUMIN 2.1 GM/DL (3.2-5.2); CALCIUM LEVEL 7.3 MG/DL (8.8-10.2); CREATININE FOR GFR 2.55 MG/DL (0.70-1.30); GLOMERULAR FILTRATION RATE 25.9 (>35); PHOSPHORUS LEVEL 3.2 MG/DL (2.5-4.9); POTASSIUM SERUM 3.7 MEQ/L (3.5-5.1)
[2020-07-17 22:00] VITALS: BP 151/75
[2020-07-18] MEDS: KCL 20MEQ IN D5W 1000ML 1,000 ML IV SCH (00:28)
[2020-07-18] MEDS: CIPROFLOXACIN 200 MG in IV 1 EA IV SCH ×2 (04:13→16:03)
[2020-07-18 06:00] VITALS: BP 154/87
[2020-07-18 06:32] LABS: CALCIUM LEVEL 7.7 MG/DL (8.8-10.2); CREATININE FOR GFR 1.81 MG/DL (0.70-1.30); GLOMERULAR FILTRATION RATE 38.4 (>35); POTASSIUM SERUM 3.9 MEQ/L (3.5-5.1)
[2020-07-18 06:50] LABS: HEMATOCRIT 26.6 % (42.0-52.0); HEMOGLOBIN 8.4 g/dl (13.5-17.5); MEAN CORPUSCULAR HEMOGLOBIN 26.9 pg (27.0-33.0); MEAN CORPUSCULAR HGB CONC 31.6 g/dl (32.0-36.5); MEAN CORPUSCULAR VOLUME 85.3 fl (80.0-96.0); PLATELET COUNT, AUTOMATED 171 10^3/uL (150-450); RED BLOOD COUNT 3.12 10^6/uL (4.30-6.10); WHITE BLOOD COUNT 6.9 10^3/uL (4.0-10.0)
--- NOTE | 2020-07-18 10:56 | IPNPDOC ---
Text Note Date of Service The patient was seen on 07/18/20. NOTE Subjective: Patient seen and examined at bedside. No acute overnight events reported. No new medical complaints. Still have rectal bleeding, but states possibly improved. Objective: VITAL SIGNS: See below General: NAD, lying comfortably in bed, in good spirits HEENT: NC/AT, EOMI, poor dentition Lungs: CTA B/L Heart: +S1S2, RRR Abd: soft, NT, +BS Ext: no edema ASSESSMENT: 80 yo male sent from his PCP for symptomatic anemia, with PMHx of unprovoked RLE DVT, HTN. Found to have rectal mass, with obstructive uropathy. #acute blood loss anemia - s/p 3 units PRBC - relative stable at this time - s/p colonoscopy - revealed rectal mass - likely malignant #rectal mass - discussed with surgery - suspect will require surgery to remove entire rectum - oncology c/s pending - spoke with Dr. Mejia - assistance appreciated - surgery if continued bleeding, RT/chemo otherwise - CT chest shows multiple small pulmonary nodules - cannot exclude metastatic disease - CEA WNL #hypernatremia - resolved #post-obstructive diuresis/urinary retention - s/p sands catheter - follow as per urology - assistance appreciated #liver lesions - cysts? metastatic disease - liver US show simple cysts #prostate disease - PSA screen elevated - urology c/s #OMAR/CKD #obstructive uropathy - CT A/P noted from yesterday - much improved today - sands catheter place - follow as per urology #UTI - continue antibiotics #HTN - holding home medications - lisinopril, HCTZ - if needed will consider amlodipine #DVT prophylaxis - mechanical Dispo: pending surgery follow up, oncology evaluation VS,Fishbone, I+O VS, Fishbone, I+O Laboratory Tests 07/17/20 14:02 07/18/20 06:01 Vital Signs Date Time Temp Pulse Resp B/P (MAP) Pulse Ox O2 Delivery O2 Flow Rate FiO2 07/18/20 06:00 98.3 72 18 154/87 (109) 97 Room Air I&O- Last 24 Hours up to 6 AM 07/18/20 06:00 Intake Total 4680 ml Output Total 5200 ml Balance -520 ml ELLIE THOMAS MD Jul 18, 2020 10:56
[2020-07-18] MEDS: KCL 20MEQ IN 0.45NS 1000ML 1,000 ML IV SCH ×2 (12:38→22:56)
[2020-07-18 14:00] VITALS: BP 151/84
[2020-07-18 22:00] VITALS: BP 151/82
[2020-07-19] MEDS: CIPROFLOXACIN 200 MG in IV 1 EA IV SCH ×2 (04:01→16:30)
[2020-07-19 06:00] VITALS: BP 131/73
[2020-07-19 06:16] LABS: HEMATOCRIT 28.2 % (42.0-52.0); MEAN CORPUSCULAR HEMOGLOBIN 27.3 pg (27.0-33.0); MEAN CORPUSCULAR HGB CONC 31.9 g/dl (32.0-36.5); MEAN CORPUSCULAR VOLUME 85.5 fl (80.0-96.0); PLATELET COUNT, AUTOMATED 199 10^3/uL (150-450); WHITE BLOOD COUNT 7.3 10^3/uL (4.0-10.0)
[2020-07-19 06:32] LABS: CALCIUM LEVEL 7.3 MG/DL (8.8-10.2); CREATININE FOR GFR 1.66 MG/DL (0.70-1.30); GLOMERULAR FILTRATION RATE 42.4 (>35); POTASSIUM SERUM 3.7 MEQ/L (3.5-5.1)
--- NOTE | 2020-07-19 08:59 | IPN ---
DATE: 07/16/2020 HISTORY OF PRESENT ILLNESS: The patient was seen in consultation on the 13 of July after being admitted by the Hospitalist with marked anemia and evidence for some rectal bleeding. He underwent a colonoscopy yesterday with upper endoscopy. There was nothing of great significance on his upper endoscopy. His colonoscopy however revealed a large circumferential ulcerated mass in the mid and distal rectum. Biopsies were obtained but the appearance is certainly consistent with a large rectal cancer. The patient had a CT scan ordered by the Hospitalist which was done last evening. My review of this showed a markedly distended bladder with evidence of hydroureteronephrosis. The prostate was obviously quite enlarged. There was some loss of tissue planes around a portion of the rectum in the area where his rectal cancer was felt to be located. There were a few more lucent areas in the liver which certainly could represent cysts, although I would be a little concerned that these could represent areas of metastasis. Vital signs show that he has been afebrile since yesterday. His pulse has been generally in the 70s with an acceptable blood pressure and a normal room air saturation. Intake and output show that yesterday he had 1645 in with 2175 out. He did have a catheter placed with return of a large amount of urine last evening, and he now has and indwelling Vera. The patient denies any pain currently. He has not had any bleeding by his report today. PHYSICAL EXAMINATION: The abdomen is soft and nontender without appreciable mass. His Vera catheter is draining some very clear urine. LABORATORY STUDIES: This morning white count of 8, hemoglobin 9, hematocrit 27 and a platelet count of 160,000. Chemistry profile shows sodium 145, potassium 4.7, chloride 114, CO2 of 20, BUN 63, creatinine 5.0 and a glucose of 124. He had a PSA of 15.7 with a CEA of 1.6. IMAGING: His CT results were as outlined in the history of the present illness. IMPRESSION: Patient has a large tumor in the rectum. His prostate is markedly enlarged with bladder outlet obstruction leading to bilateral hydroureteronephrosis. I suspect this is a significant factor in his worsened renal function. He now has a Vera catheter in place and has been seen by Urology. PLAN: I spoke with Dr. Dougherty today about the current plan. I believe the patient should be evaluated by Urology to address his bladder outlet obstruction to preserve as much renal function as possible. It is certainly possible that this represents prostate cancer which could require its own treatment. I am awaiting the results of the biopsy of the rectal mass, but suspect this is rectal cancer. I believe given the size and location this would likely require an abdominoperineal resection for removal, and he would have a permanent ostomy. The liver abnormalities, I think, should be evaluated further with an ultrasound to confirm that these represent benign cysts and not evidence of metastatic disease. I will order a CEA as further evaluation. I discussed the patient's known diagnoses at this point with him. At this point he is not inclined to have surgery, but will consider this over the weekend. We will see what the biopsy brings. DAHLIA
--- NOTE | 2020-07-19 09:08 | IPN ---
DATE: 07/17/2020 SUBJECTIVE: The patient was seen and examined at the bedside this morning. The patient is afebrile, hemodynamically stable. He reports blood in the stools today. He is having postobstructive diuresis after placement of a Vera catheter. Renal function is improving. Creatinine has improved from 5 to 2.9 today. He continues to be on IV fluid hydration. He denies any other active complaints at this time. OBJECTIVE: VITAL SIGNS: Temperature is 98.2 degrees Fahrenheit, blood pressure 153/76, pulse is 78, respiratory rate of 18, saturating 97% on room air. Intake and output: Urine output recorded as 5.4 liters yesterday, 3.7 liters so far today since overnight. Weight in the basket is not available. PHYSICAL EXAMINATION: GENERAL APPEARANCE: The patient is awake, alert, oriented x3, laying in bed, in no apparent distress. HEAD AND NECK: The extraocular muscles are intact. Pupils are equally round and reactive to light. Mucous membranes are moist. Neck is supple. There is no JVD. CARDIOVASCULAR: S1, S2 regular rate. EXTREMITIES: No edema of the bilateral lower extremities. RESPIRATORY: Chest is clear to auscultation bilaterally. Mildly decreased breath sounds at the bases. Otherwise no active rales or rhonchi. ABDOMEN: Soft, positive bowel sounds, nontender. No organomegaly. GENITOURINARY: He has an indwelling Vera catheter. Urine in the bag is free or any hematuria. MUSCULOSKELETAL: No clubbing or cyanosis. Pulses are 2+. ELECTRICAL DESIGNER: No focal deficits. Strength is 5/5 in all extremities. LABORATORY STUDIES: CBC showed a WBC of 7, hemoglobin is 8.2, platelets of 163. BMP showed sodium 147, potassium 3.9, chloride 116, bicarbonate 23, BUN 45, creatinine is 2.9. It was 5 yesterday. Glucose 104. Calcium of 7.3. IMAGING: A liver ultrasound was done yesterday which showed moderate right sided hydronephrosis, scattered simple hepatic cysts. A CT of the chest was done which showed multiple nonspecific pulmonary nodules, the largest measuring 6 mm. Primary pulmonary neoplasms, metastasis are not excluded. Very small bilateral pleural effusions. CURRENT INPATIENT MEDICATIONS: The patients medications were all reviewed by myself. He was getting IV normal saline at 90 mL at hour which I have stopped now. I have started the patient on KCL 20 mEq and D5W at 150 mL an hour. He is also getting Ciprofloxacin 200 mg IV q. 12 hourly. ASSESSMENT AND PLAN: 1. Acute renal failure it was secondary to obstructive uropathy. The patient had a Vera catheter placed. Renal function is improving. He is having postobstructive diuresis. IV fluids have been changed to D5W only. 2. Hypernatremia it is secondary to replacement of urine output with normal saline and postobstructive diuresis as mentioned above. IV fluids have been changed to D5W with KCL. Sodium level is improving. 3. Metabolic acidosis it is secondary to acute renal failure. Bicarbonate level is improving with the improvement of the renal function. 4. Enterococcus faecalis UTI it is sensitive to Ciprofloxacin. The patient is getting Ciprofloxacin at this time. 5. Anemia secondary to GI bleed - The patient is status post 3 units PRBC transfusion. Hemoglobin level is stable. 6. Rectal mass Pathology report is pending. The patient will need further CAT scans for possible staging of the tumor. Once the renal function improves, the patient can get the contrast studies. MTDD
--- NOTE | 2020-07-19 09:11 | IPN ---
DATE: 07/18/2020 SUBJECTIVE: The patient was seen and examined at the bedside today morning. He is afebrile, hemodynamically stable. He has very good urine output. Renal function continues to improve. He is drinking a good amount of fluid as well and he has finished 3 liters of IV fluids that were ordered yesterday OBJECTIVE: Vital signs: Temperature is 98.3 degrees Fahrenheit, blood pressure 154/87, pulse is 72, respiratory rate of 18, saturating 97% on room air. Intake and output: Urine output recorded as 5.8 liters yesterday and 3.7 liters so far today since overnight. Weight in the bed scale is not available. PHYSICAL EXAMINATION: The patient is awake, alert, oriented x3, laying in bed, in no apparent distress. Head and neck examination: Extraocular muscles are intact. Pupils equally round and reactive to light. Mucous membranes are moist. Neck is supple. There is no jugular venous distention (JVD). Cardiovascular: S1, S2, regular rate. No edema of the bilateral lower extremities. Respiratory: Chest is clear to auscultation bilaterally. Bilateral equal air entry. No rales or rhonchi. Abdomen: Soft. Positive bowel sounds. Nontender. Genitourinary: Bladder is nonpalpable. He has an indwelling Vera catheter. Musculoskeletal: No clubbing or cyanosis. Pulses are 2+. ELECTRONICS SYSTEM MECHANIC: No focal deficits. Power is 5/5 in all extremities. LABORATORY REVIEW: Complete blood count (CBC) showed a WBC of 6.9, hematocrit 8.4, platelets are 171. Basic metabolic panel (BMP) shows sodium 137, potassium 3.9, chloride 109, bicarbonate 22, BUN 28, creatinine is 1.8, it was 2.5 yesterday. Calcium is 7.7. CURRENT INPATIENT MEDICATIONS: The patient's medications have been all reviewed by myself. He has finished the D5W with KCl today. I have changed his IV fluids to KCl 20 mEq and half normal saline at 100 ml per hour for a total of 2 liters. ASSESSMENT: 1. Acute renal failure. The patient is having post obstructive diuresis now. Renal failure is improving. Creatinine has improved to 1.8. Continue the IV fluids at this time. 2. Anemia secondary to gastrointestinal blood loss. The patient's hemoglobin is slowly improving. He has received 3 units of packed red blood cells (PRBC) transfusion during this hospitalization. Transfuse as needed for hemoglobin below 8 only. 3. Enterococcus faecalis urinary tract infection (UTI). Continue current dose of ciprofloxacin. 4. Rectal mass. The patient is undergoing workup. Surgical service and hematology/oncology have already been consulted. The rest of the management is per the medical team 5. History of hypertension. The patient's blood pressures are slightly elevated. However, because of acute renal failure, his antihypertensive regimen is on hold. If needed, the patient will be started on calcium channel blockers. MTDD
--- NOTE | 2020-07-19 09:41 | IPNPDOC ---
Text Note Date of Service The patient was seen on 07/19/20. NOTE Subjective: Patient seen and examined at bedside. No acute overnight events reported. No new medical complaints. Still have rectal bleeding, but states possibly improved. Objective: VITAL SIGNS: See below General: NAD, lying comfortably in bed, in good spirits HEENT: NC/AT, EOMI, poor dentition Lungs: CTA B/L Heart: +S1S2, RRR Abd: soft, NT, +BS Ext: no edema ASSESSMENT: 80 yo male sent from his PCP for symptomatic anemia, with PMHx of unprovoked RLE DVT, HTN. Found to have rectal mass, with obstructive uropathy. #acute blood loss anemia - s/p 3 units PRBC - relative stable at this time - s/p colonoscopy - revealed rectal mass - likely malignant - not clear if still bleeding #rectal mass - discussed with surgery - suspect will require surgery to remove entire rectum - oncology c/s pending - spoke with Dr. Mejia - assistance appreciated - surgery if continued bleeding, RT/chemo otherwise - CT chest shows multiple small pulmonary nodules - cannot exclude metastatic disease - CEA WNL #hypernatremia - resolved #post-obstructive diuresis/urinary retention - s/p sands catheter - follow as per urology - assistance appreciated #liver lesions - cysts? metastatic disease - liver US show simple cysts #prostate disease - PSA screen elevated - urology c/s #OMAR/CKD #obstructive uropathy - CT A/P noted from yesterday - much improved today - sands catheter place - follow as per urology #UTI - continue antibiotics #HTN - holding home medications - lisinopril, HCTZ - if needed will consider amlodipine #DVT prophylaxis - mechanical Dispo: pending surgery follow up, oncology c/s, urology f/u VS,Fishbone, I+O VS, Fishbone, I+O Laboratory Tests 07/19/20 05:47 Vital Signs Date Time Temp Pulse Resp B/P (MAP) Pulse Ox O2 Delivery O2 Flow Rate FiO2 07/19/20 06:00 100.0 83 16 131/73 (92) 96 Room Air I&O- Last 24 Hours up to 6 AM 07/19/20 06:00 Intake Total 2370 ml Output Total 4550 ml Balance -2180 ml ELLIE THOMAS MD Jul 19, 2020 09:41
--- NOTE | 2020-07-19 11:34 | IPNPDOC ---
Date Seen The patient was seen on 07/19/20. Progress Note was called to see the patient with a rectal mass came to the hospital with anemia and acute bleeding episode i suggested to follow the path report and to see dr Karimi as outpatient the treatment plan will be chemo-rt followed by resection and chemotherapy urology follow up as the patient has an enlarged prostate and elevated PSA VS, I&O, 24H, Fishbone Vital Signs/I&O Vital Signs Date Time Temp Pulse Resp B/P (MAP) Pulse Ox O2 Delivery O2 Flow Rate FiO2 07/19/20 06:00 100.0 83 16 131/73 (92) 96 Room Air I&O- Last 24 Hours up to 6 AM 07/19/20 06:00 Intake Total 2370 ml Output Total 4550 ml Balance -2180 ml Laboratory Data 24H LABS Laboratory Tests 2 07/19/20 05:47: Nucleated Red Blood Cells % (auto) 0.0, Anion Gap 8, Glomerular Filtration Rate 42.4, Calcium Level 7.3L CBC/BMP Laboratory Tests 07/19/20 05:47 Microbiology Microbiology 07/14/20 Urine Culture - Final, Complete Enterococcus Faecalis CYNTHIA MA MD Jul 19, 2020 11:34
[2020-07-19 14:00] VITALS: BP 129/70
[2020-07-19 22:00] VITALS: BP 142/66
[2020-07-20] MEDS: CIPROFLOXACIN 200 MG in IV 1 EA IV SCH ×2 (03:49→17:54)
[2020-07-20 06:00] VITALS: BP 136/67
[2020-07-20 06:37] LABS: HEMATOCRIT 28.1 % (42.0-52.0); HEMOGLOBIN 8.8 g/dl (13.5-17.5); MEAN CORPUSCULAR HEMOGLOBIN 27.2 pg (27.0-33.0); MEAN CORPUSCULAR HGB CONC 31.3 g/dl (32.0-36.5); PLATELET COUNT, AUTOMATED 204 10^3/uL (150-450); RED BLOOD COUNT 3.23 10^6/uL (4.30-6.10); WHITE BLOOD COUNT 7.2 10^3/uL (4.0-10.0)
[2020-07-20 06:56] LABS: CALCIUM LEVEL 7.5 MG/DL (8.8-10.2); CREATININE FOR GFR 1.64 MG/DL (0.70-1.30); POTASSIUM SERUM 3.8 MEQ/L (3.5-5.1)
--- NOTE | 2020-07-20 08:21 | IPN ---
DATE: 07/19/2020 SUBJECTIVE: The patient was seen and examined at the bedside today morning. He is afebrile, hemodynamically stable. Renal function continues to improve. IV fluids have been stopped now. He is adequately hydrating himself orally. He denies any active complaints at this time. PHYSICAL EXAMINATION: VITAL SIGNS: Temperature is 100 degrees Fahrenheit, blood pressure is 131/73, pulse is 83, respiratory rate of 16, saturating 96% on room air. Intake and output: Urine output recorded as 4.8 liters yesterday, 2.4 liters so far today since overnight. Weight on the bed scale is not available. GENERAL: Patient is awake, alert and oriented x3, lying in bed in no apparent distress. HEAD AND NECK: Extraocular muscles intact. Pupils equally round and reactive to light. Mucous membranes are moist. Neck is supple. There is no JVD. CARDIOVASCULAR: S1, S2, regular rate. No edema of the bilateral lower extremities. RESPIRATORY: Chest is clear to auscultation bilaterally. Bilateral equal air entry. No rales or rhonchi. ABDOMEN: Soft, positive bowel sounds. GENITOURINARY: He has an indwelling Vera catheter. MUSCULOSKELETAL: No clubbing or cyanosis. Pulses are 2+. STAFF NURSE: No focal deficits. Power is 5/5 in all extremities. LABORATORY REVIEW: CBC showed a WBC of 7.3, hemoglobin is 9, platelets are 199,000. BMP showed a sodium of 138, potassium 3.7, chloride 109, bicarbonate 21, BUN 25, creatinine is 1.6, it was 1.8 yesterday. CURRENT INPATIENT MEDICATIONS: The patients medications were all reviewed by myself. IV fluids have finished now. He continues to be on IV Ciprofloxacin. ASSESSMENT AND PLAN: 1. Acute renal failure, it was secondary to obstructive uropathy. Patient has a postobstructive diuresis which is improving now. Continue to encourage oral hydration. IV fluids have been stopped now. 2. Enterococcus faecalis UTI. Patient is currently getting Ciprofloxacin. One week of antibiotics should be enough. 3. Rectal mass, final pathology result is pending. Patient is already being seen by surgery and hematology/oncology. Hemoglobin level is stable. 4. Disposition: The patients renal function is improving, electrolyte and acid base status is within the acceptable range. Nephrology service is going to sign off. Patient needs to follow-up with Nephrology within two weeks after discharge from the hospital. DAHLIA
--- NOTE | 2020-07-20 11:56 | IPNPDOC ---
Text Note Date of Service The patient was seen on 07/20/20. NOTE CC: Rectal Mass Bleeding Subjective: Steve Sosa is an 80 yr. old male who presented with rectal mass bleeding. Today, patient complains of lightheadedness. He states that this has occurred while both lying down and by doing activity, but is more aggravated when doing activity. He complains that he has double vision. He states that he has been eating and keeping hydrated well. Does not have any nausea or vomiting associated with the lightheadedness. ROS: General: Denies fever HEENT: Positive for vision loss, lightheadedness, denies headaches Cardiovascular: Denies chest pain, leg swelling, palpitations Respiratory: Denies shortness of breath, coughing, wheezing GI: Denies abdominal pain, diarrhea, constipation, nausea, vomiting Objective: General: Patient in no acute distress, alert and oriented Cardiovascular: RRR, no murmurs or gallops, normal S1 and S2 Respiratory: Lungs clear to auscultation, no wheezing or rales GI: Normal bowel sounds in all four quadrants, nontender, nondistended Assessment: Steve Sosa is an 80 yr. old male who presented with rectal mass bleeding. Patient's lightheadedness concerning for possible symptomatic anemia. Plan: 1. Acute blood loss anemia: Patient's current lightheadedness possibly symptomatic anemia - however Hg has remained stable, likely 2/2 deconditioning 2. Rectal mass bleeding: Dr. Mehta spoke to Dr. Mejia recently, who, according to his note from 07/19/20, recommended chemo-radiation followed by resection and chemotherapy, also suggested to follow the path report. 3. Hypernatremia: Resolved and stable with most recent lab results showing a sodium of 141 4. Post-obstructive diuresis/urinary retention: s/p sands catheter, follow as per urology, assistance appreciated 5. Liver lesions - liver US shows simple cysts 6. Prostate disease - As per Dr. Mejia's recent note, patient will follow-up with urology due to enlarged prostate and elevated PSA 7. OMAR/CKD - obstructive uropathy, CT A/P noted, Sands catheter is set for home use 8. UTI: Continue antibiotics 9. Hypertension: Holding medications (lisinopril, HCTZ), will consider amlodipine if needed 10. DVT prophy: mechanical Dispo: low hemoglobin levels causing symptomatic problems. Also pending PT and OT clearance. VS,Fishbone, I+O VS, Fishbone, I+O Laboratory Tests 07/20/20 05:56 Vital Signs Date Time Temp Pulse Resp B/P (MAP) Pulse Ox O2 Delivery O2 Flow Rate FiO2 07/20/20 06:00 97.8 70 18 136/67 (90) 95 Room Air I&O- Last 24 Hours up to 6 AM 07/20/20 06:00 Intake Total 2160 ml Output Total 3677 ml Balance -1517 ml GME ATTESTATION GME ATTESTATION My faculty preceptor for this patient encounter was physically present during the encounter and was fully available. All aspects of the patient interview, examination, medical decision making process, and medical care plan development were reviewed and approved by the faculty preceptor. The faculty preceptor is aware and concurs with the plan as stated in the body of this note and will attest to such by his/her cosignature. ATTENDING NOTE I, Gordy Bowles, have independently examined this patient and performed my own physical exam, as well as reviewed the documentation and edited where necessary. I have discussed in detail with the resident / student the findings and plan of treatment as documented by the resident / student and edited their note. I agree with their findings and treatment plan and have edited their documentation. I will continue to follow the patient during this hospital stay. Disposition: - Transition to ALC status - Awaiting PT clearance DOROTHY KAM OMS-IV Jul 20, 2020 11:55 GORDY BOWLES MD Jul 20, 2020 15:07
[2020-07-20 14:00] VITALS: BP 137/75
[2020-07-20 22:00] VITALS: BP 147/73
[2020-07-21] MEDS: CIPROFLOXACIN 200 MG in IV 1 EA IV SCH (03:12)
[2020-07-21 06:00] VITALS: BP 145/73
[2020-07-21 06:31] LABS: HEMATOCRIT 27.4 % (42.0-52.0); HEMOGLOBIN 8.6 g/dl (13.5-17.5); MEAN CORPUSCULAR HEMOGLOBIN 27.1 pg (27.0-33.0); MEAN CORPUSCULAR HGB CONC 31.4 g/dl (32.0-36.5); MEAN CORPUSCULAR VOLUME 86.4 fl (80.0-96.0); PLATELET COUNT, AUTOMATED 194 10^3/uL (150-450); RED BLOOD COUNT 3.17 10^6/uL (4.30-6.10); WHITE BLOOD COUNT 7.6 10^3/uL (4.0-10.0)
[2020-07-21 06:50] LABS: CREATININE FOR GFR 1.62 MG/DL (0.70-1.30); GLOMERULAR FILTRATION RATE 43.6 (>35); POTASSIUM SERUM 3.7 MEQ/L (3.5-5.1)
--- NOTE | 2020-07-21 07:21 | IPN ---
DATE: 07/20/2020 HISTORY OF PRESENT ILLNESS: Patient was found on endoscopy last week to have a large ulcerated rectal mass. Biopsies were pending when I last saw him on 07/16/2020. There was also a question of some hypodense lesions in the liver and I was concerned these could represent metastatic deposits. His pathology report has now returned, showing well to moderately differentiated adenocarcinoma. His liver ultrasound was done also on the , fairly late in the day, and this showed only some benign appearing cysts with no evidence of metastatic disease. VITAL SIGNS: Patient has been afebrile over the past 24 hours. His pulse is in the 70s to 90s, and his blood pressure is good. INTAKE AND OUTPUT: Shows that he has been taking a diet well. The hospitalist has kept him on some I.V. fluid. He has been receiving Ciprofloxacin recently for positive urine culture for Enterococcus faecalis. PHYSICAL EXAMINATION: Patient is lying quietly on the hospital bed. He is not in any obvious discomfort. He has a Vera catheter in place, draining clear urine. Abdomen is soft and nontender. LABORATORY STUDIES TODAY: White count 7, hemoglobin 9, hematocrit 28, platelet count 204,000. Chemistry profile shows sodium 141, potassium 3.8, chloride 111, CO2 22, BUN 26, creatinine 1.6, glucose 91. His creatinine improved markedly following placement of his urinary catheter and is now back down to what was his baseline a year or two ago. IMPRESSION: 1. Large ulcerated low lying rectal cancer with bleeding. 2. Bladder outlet obstruction secondary to markedly enlarged prostate with secondary acute renal failure. 3. Multiple small, too small to characterize, pulmonary nodules. PLAN: The patient's daughter was present today and she had many questions, and the patient and his daughter and I discussed at some length his various severe medical issues. I outlined for her that he has a large rectal cancer, that the usual treatment would involve a surgical resection preceded by some chemo/radiation to shrink the tumor. I advised her that this would require an abdominoperineal resection and a permanent colostomy, and she had some questions about this. I also advised her that there is the issue of his enlarged prostate with the bladder outlet obstruction and secondary hydronephrosis and renal failure. This can be managed temporarily with a urinary catheter, but a longer term solution likely would require urologic surgery. I advised them that his prostate enlargement could be just benign prostatic hyperplasia, but could also represent prostate cancer and this answer is not yet known. I advised them that the areas in the liver that had been of concern appear to be only benign cysts and there is no other definite evidence for metastatic disease from his rectal cancer. There are several small nodules, I think it is 5 or 6 on his recent CAT scan, the largest of which is approximately 5 mm and these are all too small to characterize and are likely benign. The daughter expressed significant reservations about her fathers ability to tolerate the major surgery that would be required for his rectal cancer. She is also concerned that as she lives in [place] she will not be able to be as involved in his care as she would like to be. She asked about him possibly receiving care in [place] and I advised her that he can certainly seek care wherever it is most convenient and suitable for him. She had some questions about what services might be available for her father locally and I advised her to discuss this with the home office representative from the patient and family services department. The patient and his daughter were thankful that I had the opportunity to spend some time speaking with them about these issues and clearly I think they both understand the situation better. DAHLIA
[2020-07-21] MEDS ORDERED: ACETAMINOPHEN 500 MG TAB PO PRN (10:00)
[2020-07-21 14:00] VITALS: BP 119/71
[2020-07-21] MEDS: CIPROFLOXACIN 250MG TAB PO SCH (18:17)
[2020-07-21 22:00] VITALS: BP 107/60
[2020-07-22 06:00] VITALS: BP 140/70
[2020-07-22] MEDS: CIPROFLOXACIN 250MG TAB PO SCH ×2 (06:05→18:04)
[2020-07-22 14:00] VITALS: BP 144/68
[2020-07-22 22:00] VITALS: BP 153/74
[2020-07-23] MEDS: CIPROFLOXACIN 250MG TAB PO SCH ×2 (05:15→17:32)
[2020-07-23 06:00] VITALS: BP 133/73
[2020-07-23 22:00] VITALS: BP 138/83
[2020-07-24] MEDS: CIPROFLOXACIN 250MG TAB PO SCH ×2 (05:33→18:09)
[2020-07-24 06:00] VITALS: BP 145/71
[2020-07-25] MEDS: CIPROFLOXACIN 250MG TAB PO SCH ×2 (05:32→19:00)
[2020-07-25 06:00] VITALS: BP 145/70
[2020-07-26] MEDS: CIPROFLOXACIN 250MG TAB PO SCH ×2 (05:39→17:19)
[2020-07-26 06:00] VITALS: BP 146/79
[2020-07-27] MEDS: CIPROFLOXACIN 250MG TAB PO SCH (05:46)
[2020-07-27 06:00] VITALS: BP 142/74
[2020-07-27] MEDS ORDERED: AMLO25TA PO (09:55)
--- NOTE | 2020-07-27 11:56 | DS.PDOC ---
Discharge Summary General Date of Admission Jul 13, 2020 at 15:45 Date of Discharge 07/27/2020 Discharge Summary PROCEDURES PERFORMED DURING STAY: Colonoscopy 07/05/[address] Corcoran ADMITTING DIAGNOSES / DISCHARGE DIAGNOSES: s/p Acute blood loss anemia Rectal mass bleeding s/p Hypernatremia Post-obstructive diuresis/urinary retention Liver lesions Prostate disease s/p OMAR on CKD - likely 2/2 post-renal etiology s/p UTI Hypertension DVT prophylaxis COMPLICATIONS/CHIEF COMPLAINT: Dizziness HISTORY OF PRESENT ILLNESS: Patient is a 80-year-old male with a PMHx of HTN, CKD3, Hx of Unprovoked RLE DVT (Dx 2012, on Xarelto, Discontinued 2018), who presented to the ER at the direction of his PCP for routine blood work that showed a hemoglobin of 6.1. Patient was made to hospital service for further evaluation and treatment. Nephrology and general surgery were called on consultation for likely colonoscopy. HOSPITAL COURSE: s/p Acute blood loss anemia - 2/2 lower GI bleeding - 2/2 rectal mass - Patient's Humulin has remained stable - s/p 3 units transfusion; no further bleeding noted - Orthostatic vitals negative - Cleared PT and OT for home with services Rectal mass - 2/2 adenocarcinoma - Colonoscopy 07/15 was found to have rectal adenocarcinoma on biopsy - Gen. surgery and oncology were called on consultation - Patient has been advised to follow-up with oncology and general surgery within the next 7 days; patient has verbalized understanding - He is not sure at this point if he would like to pursue surgery or have chemotherapy alone; will continue discussion with family - Patient has verbalized he will remain compliant with follow up to have his rectal cancer addressed s/p Hypernatremia Post-obstructive diuresis/urinary retention - Failed voiding trial - c/w Vera catheter on discharge - Urology was called on consultation; will have patient follow-up up within the next 7 days Liver lesions - Imaging consistent with simple cysts Prostate disease - As per Dr. Mejia's recent note; patient will follow-up with urology due to enlarged prostate and elevated PSA s/p OMAR on CKD - likely 2/2 post-renal etiology - Nephrology on consultation - c/w Vera catheter s/p UTI - Completed antibiotic course Hypertension - s/p HCTZ and Lisinopril - Will provide low dose Amlodipine on discharge DVT prophylaxis - c/w TEDs/Sequentials DISCHARGE MEDICATIONS: Please see below. ALLERGIES: Please see below. PHYSICAL EXAMINATION ON DISCHARGE: VITAL SIGNS: Please see below. Vitals (See below) General: Lying in bed, appears to be comfortable, AAOx3 HEENT: NC, AT CVS: RRR, +S1S2 Lungs: Fair air entry b/l, no visual wheezing, rhonchi or rales Abdomen: Soft, ND, NT Extremities: No evidence of edema, - Calf tenderness LABORATORY DATA: Please see below. ACTIVITY: [As tolerated]. DISCHARGE PLAN: Follow-up with primary care provider, nephrology, urology, oncology and general surgery within the next 7 days Remain compliant with treatment plan and medications Return to the ER if you experience any problems Patient has been advised to remain compliant with quarantine rules by [facility] DISPOSITION: Home with services DISCHARGE CONDITION: [Stable]. TIME SPENT ON DISCHARGE: 35 minutes. Vital Signs/I&Os Vital Signs Date Time Temp Pulse Resp B/P (MAP) Pulse Ox O2 Delivery O2 Flow Rate FiO2 07/27/20 06:00 98.1 73 17 142/74 (96) 97 Room Air 07/22/20 14:00 97 I&O- Last 24 Hours up to 6 AM 07/27/20 06:00 Intake Total 850 ml Output Total 1851 ml Balance -1001 ml Discharge Medications Scheduled Amlodipine Besylate (Amlodipine Besylate) 2.5 Mg Tablet, 1 TAB PO DAILY Scheduled PRN Acetaminophen (Tylenol Extra Strength) 500 Mg Tablet, 500 MG PO Q6H PRN for HEADACHE, (Reported) Allergies Coded Allergies: sulfamethoxazole (Verified Allergy, Unknown, 07/13/20) MAGNUS LARIOS MD Jul 27, 2020 11:56
== END 2020-07-27 17:54 | disposition home health service (06) | DRG 375 ==
LOC: M ED 14:09 → M ED INP 15:45 → ENRESERV 15:57 → M ICU 17:11 → M MSPAV 07-14 17:00
PROVIDERS: ADMIT Internal Medicine; ATTEND Internal Medicine
PROC: 30233N1 Transfusion of Nonautologous Red Blood Cells into Peripheral Vein, Percutaneous Approach (ICD-10-PCS; 2020-07-13)
PROC: 0DBP8ZX Excision of Rectum, Via Natural or Artificial Opening Endoscopic, Diagnostic (ICD-10-PCS; principal; 2020-07-15 15:45)
DX: C20 Malignant neoplasm of rectum (principal); D62 Acute posthemorrhagic anemia; N17.9 Acute kidney failure, unspecified; E87.0 Hyperosmolality and hypernatremia; E87.2 Acidosis; N39.0 Urinary tract infection, site not specified; N18.30 Chronic kidney disease, stage 3 unspecified; I12.9 Hypertensive chronic kidney disease with stage 1 through stage 4 chronic kidney disease, or unspecified chronic kidney disease; Z79.01 Long term (current) use of anticoagulants; Z86.718 Personal history of other venous thrombosis and embolism; Z88.2 Allergy status to sulfonamides; K57.30 Diverticulosis of large intestine without perforation or abscess without bleeding; K76.89 Other specified diseases of liver

== ENCOUNTER → 2020-07-13 | Outpatient (CLI) | payer MEDICARE ==
[~2020-07-13] MED LIST: ACET-897 PO; AMLO2.5T3 PO; AMLO25TA PO; HYDR12CA; LISI10TA4
[2020-07-13 12:43] LABS: BASO % 0.3 % (0.0-1.0); EOS # 0.2 10^3/uL (0.0-0.5); LYMPH # 1.4 10^3/uL (1.5-5.0); LYMPH % 18.9 % (24.0-44.0); MEAN CORPUSCULAR HEMOGLOBIN 26.5 pg (27.0-33.0); MEAN CORPUSCULAR VOLUME 88.3 fl (80.0-96.0); MONO # 0.8 10^3/uL (0.0-0.8); MONO % 10.7 % (0.0-5.0); NEUTROPHILS # 5.1 10^3/uL (1.5-8.5); NEUTROPHILS % 66.3 % (36.0-66.0); PLATELET COUNT, AUTOMATED 260 10^3/uL (150-450); WHITE BLOOD COUNT 7.6 10^3/uL (4.0-10.0)
[2020-07-13 12:51] LABS: HEMATOCRIT 20.3 % (42.0-52.0)
[2020-07-13 13:00] LABS: HEMOGLOBIN 6.1 g/dl (13.5-17.5)
[2020-07-13 13:27] LABS: ERYTHROCYTE SEDIMENTATION RATE 126 mm/hr (0-20)
[2020-07-13 13:38] LABS: BILIRUBIN,TOTAL 0.2 MG/DL (0.2-1.0); CALCIUM LEVEL 8.7 MG/DL (8.8-10.2); CREATININE FOR GFR 2.88 MG/DL (0.70-1.30); GLOMERULAR FILTRATION RATE 22.5 (>35); POTASSIUM SERUM 4.3 MEQ/L (3.5-5.1)
[2020-07-13 13:39] LABS: ALBUMIN 2.6 GM/DL (3.2-5.2); C REACTIVE PROTEIN QUANTITATIV 5.11 MG/DL (0.00-0.30); CHOLESTEROL RISK RATIO 4.6 (<5); THYROID STIMULATING HORMONE 7.52 uIU/ML (0.358-3.740); TOTAL PROTEIN 6.5 GM/DL (6.4-8.2)
== END ==
LOC: M WUC 09:24
PROVIDERS: ATTEND Family Medicine
DX: R19.7 Diarrhea, unspecified (principal); R53.81 Other malaise

== ENCOUNTER 2020-07-29 10:40 | Inpatient (IN) | payer MEDICARE ==
[2020-07-29] VITALS (7 sets, daily range): BP systolic 131–150; BP diastolic 70–78; O2SAT 100
[~2020-07-29] VITALS: Ht 170.2 cm; Wt 63.9 kg
[~2020-07-29 10:40] MED LIST changes: -AMLO2.5T3 PO
[2020-07-29 12:24] LABS: BASO % 0.5 % (0.0-1.0); EOS # 0.2 10^3/uL (0.0-0.5); EOS % 2.5 % (0.0-3.0); HEMATOCRIT 27.9 % (42.0-52.0); HEMOGLOBIN 8.4 g/dl (13.5-17.5); LYMPH # 1.1 10^3/uL (1.5-5.0); MEAN CORPUSCULAR HEMOGLOBIN 26.9 pg (27.0-33.0); MEAN CORPUSCULAR HGB CONC 30.1 g/dl (32.0-36.5); MEAN CORPUSCULAR VOLUME 89.4 fl (80.0-96.0); MONO # 0.9 10^3/uL (0.0-0.8); NEUTROPHILS # 5.3 10^3/uL (1.5-8.5); NEUTROPHILS % 69.7 % (36.0-66.0); PLATELET COUNT, AUTOMATED 225 10^3/uL (150-450); RED BLOOD COUNT 3.12 10^6/uL (4.30-6.10); WHITE BLOOD COUNT 7.6 10^3/uL (4.0-10.0)
[2020-07-29 12:34] LABS: INR 1.05; PROTHROMBIN TIME 13.9 SECONDS (12.5-14.3)
[2020-07-29 12:54] LABS: ALBUMIN 2.5 GM/DL (3.2-5.2); ALT/SGPT 10 U/L (12-78); BILIRUBIN,DIRECT < 0.1 MG/DL (0.0-0.2); BILIRUBIN,TOTAL 0.1 MG/DL (0.2-1.0); BLOOD UREA NITROGEN 33 MG/DL (7-18); CALCIUM LEVEL 8.7 MG/DL (8.8-10.2); CARBON DIOXIDE LEVEL 25 MEQ/L (21-32); CHLORIDE LEVEL 110 MEQ/L (98-107); CK-MB VALUE MASS 2.4 NG/ML (<3.6); CPK CREATINE PHOSPHOKINASE 86 U/L (39-308); CREATININE FOR GFR 1.74 MG/DL (0.70-1.30); GLOMERULAR FILTRATION RATE 40.2 (>35); GLUCOSE, FASTING 119 MG/DL (70-100); LIPASE 138 U/L (73-393); MB/CK RELATIVE INDEX 2.79 (< OR =4); POTASSIUM SERUM 4.2 MEQ/L (3.5-5.1); SODIUM LEVEL 141 MEQ/L (136-145); TOTAL PROTEIN 6.5 GM/DL (6.4-8.2); TROPONIN I < 0.02 NG/ML (< 0.10)
--- NOTE | 2020-07-29 14:24 | REP ---
INDICATION: dizzy. COMPARISON: None. TECHNIQUE: Helical scanning is acquired. 5 mm axial images were reformatted. Coronal MPR images were generated. FINDINGS: Bone window settings demonstrate intact bony calvarium. Visualized paranasal sinuses are clear. There is moderate vascular calcification in the distal internal carotid arteries bilaterally. No intraorbital abnormality is seen. On soft tissue window settings, there is generalized volume loss. There is periventricular low density in the right frontal lobe on the right consistent with a lacunar infarction. This appears to be old. Similarly, there is a lacunar infarct in the lateral aspect of the basal ganglia on the left. No acute infarction is appreciated. No evidence of intracranial hemorrhage is seen. No mass, extra-axial fluid collection, or midline shift. IMPRESSION: There is diffuse atrophy and vascular calcification. There is a lacunar infarct in the right periventricular frontal lobe white matter and another in the left basal ganglia. Both of these appear to be old. No acute intracranial abnormality is appreciated.. <Electronically signed by Doe Solorio > 07/29/20 2254
[2020-07-29] MEDS ORDERED: AMLO2.5T3 PO (15:14)
[2020-07-29 16:28] LABS: FERRITIN 39 NG/ML (26-388); IRON (FE) 52 UG/DL (65-175); PERCENT SATURATION 15.7 % (19.7-50.0); TOTAL IRON BINDING CAPACITY 332 UG/DL (250-450)
--- NOTE | 2020-07-29 16:44 | HPEPDOC ---
[facility] Medical History & Physical Date of Admission Jul 29, 2020 Date of Service: Jul 29, 2020 History and Physical CHIEF COMPLAINT: lightheaded HISTORY OF PRESENT ILLNESS: 80 yo male DNR/DNI presented to the ER w c/o lightheadedness x3 at home, and history of falls -once on the cement in his garage one month ago, for SNF placement as he is unable to take care of himself. He denies any chest pain, pressure, tightness, palpitations, sob, but admits to dizziness without a fall this time. His daughter lives in [place] as a teacher with 2 teenagers and a , and will be unable to care for him. Despite having a chronic indwelling sands, he denies dysuria, fever, chills, and malodorous urine, or flank pain. He was exposed to a COVID positive person, and is currently on a 14 day isolation per the Dept of health. He was recently diagnosed with a large low lying rectal mass by Dr. Corcoran, General Surgery, with pathology confirming rectal cancer. He had acute blood loss anemia s/p 2 urbc transfusion during his 07/21/20-07/27/20 hospital admission at [facility]. At that time, he was also found to have urine retention, due to an enlarged prostate causing bladder outlet obstruction,hydronephrosis requiring a sands catheter, and acute renal failure complicated by enterococcus faecalis UTI. His daughter lives in [place], and has discussed with both general surgery Dr. Corcoran, and Dr. Connolly, hematology/oncologist, that she has reservations about a major surgery, as it would require the patient to have chemo/RT first to reduce the tumor, then abdominoperineal resection with a permanent colostomy. He was discharged home 07/27/[address] Dr[address] Trev hart. He presents with c/o lightheadedness. CT head negative. hgb 8.4 from 8.6 on discharge, and remains at baseline ckd3 with creatinine of 1.7 now from 1.6-1.8 baseline. He continues to have occasional bloody rectal discharge, but "not much" and was not orthostatic in the ER. Hospitalist was asked to admit for placement. He agreed to rbc transfusion, but says, "At my age, I am not interested in doing chemo/radiation, and a 4 hour surgery. If God decides to take me, I'm ready to go." He denies suicidal ideation or homicidal tendency. EKG sinus. PAST MEDICAL HISTORY: Rectal CA Bladder Outlet obstruction pulmonary nodules liver lesions Enlarged prostate CKD 3 Hydronephrosis s/p sands Blood loss anemia s/p 2 units rbc transfusion due to rectal ca 07/21/20 unprovoked DVT - RLE - 2012 not on NOAC due to rectal ca HTN ALLERGIES: Please see below. REVIEW OF SYSTEMS:10 point systems review Negative except as per HPI. HOME MEDICATIONS: Please see below. PHYSICAL EXAMINATION: VITAL SIGNS: See below General: NAD, pale, appears his stated age. HEENT: NC/AT, EOMI,anicteric poor dentition Lungs: CTA B/L AEBE Heart: +S1S2, RRR Abd: soft, NT, +BS x 4quadrants leg bag chronic indwelling sands Ext: no edema LABORATORY DATA: See below. MICROBIOLOGY: Please see below. IMAGING: CT HEAD WITHOUT CONTRAST 07/29/20 INDICATION: dizzy. COMPARISON: None. TECHNIQUE: Helical scanning is acquired. 5 mm axial images were reformatted. Coronal MPR images were generated. FINDINGS: Bone window settings demonstrate intact bony calvarium. Visualized paranasal sinuses are clear. There is moderate vascular calcification in the distal internal carotid arteries bilaterally. No intraorbital abnormality is seen. On soft tissue wind ow settings, there is generalized volume loss. There is periventricular low density in the right frontal lobe on the right consistent with a lacunar infarction. This appears to be old. Similarly, there is a lacunar infarct in the lateral aspect of the basal ganglia on the left. No acute infarction is appreciated. No evidence of intracranial hemorrhage is seen. No mass, extra-axial fluid collection, or midline shift. IMPRESSION: There is diffuse atrophy and vascular calcification. There is a lacunar infarct in the right periventricular frontal lobe white matter and another in the left ba tawny ganglia. Both of these appear to be old. No acute intracranial abnormality is appreciated.. <Electronically signed by Doe Solorio > 07/29/20 7100 ASSESSMENT: 80 yo male brought in by family for SNF placement and c/o lightheadedness. PROBLEMS: Lightheadedness / Symptomatic anemia due to rectal cancer chronic blood loss anemia Rectal CA diagnosed 07/2020 Bladder Outlet obstruction w sands pulmonary nodules liver lesions Enlarged prostate CKD 3 Hydronephrosis with chronic indwelling catheter Blood loss anemia s/p 2 units rbc transfusion due to rectal ca 07/21/20 unprovoked DVT - RLE - 2012 not on NOAC due to rectal ca HTN PLAN: Pt will be admitted as an inpatient for two midnights for placement. PFS consulted. He was not orthostatic, but will be given rbc transfusion due to symptomatic anemia. Due to active rectal cancer and further risk of bleeding, he will be given compression stockings for DVT prophylaxis. monitor renal function, avoid nephrotoxins, renally dose medications. check ua w reflex cx . continue chronic indwelling Sands for retention. 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 Vital Signs Vital Signs Date Time Temp Pulse Resp B/P (MAP) Pulse Ox O2 Delivery O2 Flow Rate FiO2 07/29/20 14:35 98.0 70 18 128/60 (82) 99 07/29/20 13:43 Room Air Laboratory Data Labs 24H Laboratory Tests 2 07/29/20 11:58: Immature Granulocyte % (Auto) 0.3, Neutrophils (%) (Auto) 69.7H, Lymphocytes (%) (Auto) 15.0L, Monocytes (%) (Auto) 12.0H, Eosinophils (%) (Auto) 2.5, Basophils (%) (Auto) 0.5, Neutrophils # (Auto) 5.3, Lymphocytes # (Auto) 1.1L, Monocytes # (Auto) 0.9H, Eosinophils # (Auto) 0.2, Basophils # (Auto) 0.0, Nucleated Red Blood Cells % (auto) 0.0, Prothrombin Time 13.9, Prothromb Time International Ratio 1.05, Anion Gap 6L, Glomerular Filtration Rate 40.2, Calcium Level 8.7L, Total Bilirubin 0.1L, Direct Bilirubin < 0.1, Aspartate Amino Transf (AST/SGOT) 19, Alanine Aminotransferase (ALT/SGPT) 10L, Alkaline Phosphatase 70, Total Creatine Kinase 86, Creatine Kinase MB 2.4, Creatine Kinase MB Relative Index 2.79, Troponin I < 0.02, Total Protein 6.5, Albumin 2.5L, Albumin/Globulin Ratio 0.6, Lipase 138 CBC/BMP Laboratory Tests 07/29/20 11:58 Home Medications Scheduled Amlodipine Besylate (Amlodipine Besylate) 2.5 Mg Tablet, 2.5 MG PO DAILY Scheduled PRN Acetaminophen (Tylenol Extra Strength) 500 Mg Tablet, 500 MG PO Q6H PRN for HEADACHE Allergies Coded Allergies: sulfamethoxazole (Verified Allergy, Unknown, 07/13/20) A-FIB/CHADSVASC A-FIB History Current/History of A-Fib/PAF?: No Current PO Anticoag Therapy: No Age/Risk Factor Scoring CHADSVASC: CHADSVASC Response (Comments) Value Age Risk Factor Age >/= 75 years old 2 Gender Risk Factor Male 0 Hx of CHF No 0 Hx of HTN Yes 1 Hx of Stroke/TIA/or VTE No 0 Hx of Diabetes No 0 Hx of Vascular Disease No 0 Total 3 Treatment Treatment ordered: NONE Reason Anticoagulant not given: Current bleeding CHANDRIKA MIRANDA MD Jul 29, 2020 15:38
[2020-07-29] MEDS ORDERED: ACETAMINOPHEN 500 MG TAB PO PRN (16:45)
[2020-07-29] MEDS ORDERED: SUCRALFATE SUSP 1GM/10ML UD PO SCH (17:30)
[2020-07-29] MEDS ORDERED: PANTOPRAZOLE 40MG TAB (PROTONIX) PO SCH (21:00)
[2020-07-30] VITALS (7 sets, daily range): BP systolic 123–155; BP diastolic 68–93
[2020-07-30 07:02] LABS: HEMATOCRIT 32.4 % (42.0-52.0); HEMOGLOBIN 10.3 g/dl (13.5-17.5); MEAN CORPUSCULAR HEMOGLOBIN 28.5 pg (27.0-33.0); MEAN CORPUSCULAR HGB CONC 31.8 g/dl (32.0-36.5); MEAN CORPUSCULAR VOLUME 89.5 fl (80.0-96.0); PLATELET COUNT, AUTOMATED 203 10^3/uL (150-450); RED BLOOD COUNT 3.62 10^6/uL (4.30-6.10); WHITE BLOOD COUNT 6.5 10^3/uL (4.0-10.0)
--- NOTE | 2020-07-30 07:06 | ECGEPIP ---
[facility] - ED Test Date: 2020-07-29 Pat Name: MANJIT BLAKE Department: Room: - Gender: Male Online Marketing Strategist: : 1940 Requested By: Fela Chaudhry Order Number: [id number] Reading MD: Alex Kinsey Measurements Intervals [place] Rate: 85 P: 57 [place]: 152 QRS: 3 QRSD: 81 T: 50 QT: 350 QTc: 416 Interpretive Statements SINUS RHYTHM LOW VOLTAGE IN LIMB LEADS Similar to tracing done 07-13-20 Electronically Signed on 07-30-2020 7:06:31 EDT by Alex Kinsey
[2020-07-30 07:41] LABS: ALBUMIN 2.4 GM/DL (3.2-5.2); BILIRUBIN,TOTAL 0.3 MG/DL (0.2-1.0); CALCIUM LEVEL 8.3 MG/DL (8.8-10.2); CREATININE FOR GFR 1.52 MG/DL (0.70-1.30); MAGNESIUM LEVEL 1.7 MG/DL (1.8-2.4); POTASSIUM SERUM 4.1 MEQ/L (3.5-5.1); TOTAL PROTEIN 6.1 GM/DL (6.4-8.2)
--- NOTE | 2020-07-30 11:28 | IPNPDOC ---
Date Seen The patient was seen on 07/30/20. Progress Note SUBJECTIVE: weakness improved. no c/o sob, fever, or chills. no c/o n/v/d/abd pain. still w gait instability. s/p 2 u rbc with no painter or signs of fluid overload OBJECTIVE: PHYSICAL EXAMINATION: VITAL SIGNS: See below General: NAD, pale, appears his stated age. HEENT: NC/AT, EOMI,anicteric poor dentition Lungs: CTA B/L AEBE Heart: +S1S2, RRR Abd: soft, NT, +BS x 4quadrants leg bag chronic indwelling sands Ext: no edema LABORATORY DATA: See below. MICROBIOLOGY: Please see below. IMAGING: CT HEAD WITHOUT CONTRAST 07/29/20 INDICATION: dizzy. COMPARISON: None. TECHNIQUE: Helical scanning is acquired. 5 mm axial images were reformatted. Coronal MPR images were generated. FINDINGS: Bone window settings demonstrate intact bony calvarium. Visualized paranasal sinuses are clear. There is moderate vascular calcification in the distal internal carotid arteries bilaterally. No intraorbital abnormality is seen. On soft tissue window settings, there is generalized volume loss. There is periventricular low density in the right frontal lobe on the right consistent with a lacunar infarction. This appears to be old. Similarly, there is a lacunar infarct in the lateral aspect of the basal ganglia on the left. No acute infarction is appreciated. No evidence of intracranial hemorrhage is seen. No mass, extra-axial fluid collection, or midline shift. IMPRESSION: There is diffuse atrophy and vascular calcification. There is a lacunar infarct in the right periventricular frontal lobe white matter and another in the left basal ganglia. Both of these appear to be old. No acute intracranial abnormality is appreciated.. <Electronically signed by Doe Solorio > 07/29/20 1910 ASSESSMENT: 80 yo male brought in by family for SNF placement and c/o lightheadedness. PROBLEMS: Symptomatic anemia due to rectal cancer, s/p 2 u rbc transfusion 07/29/20 chronic blood loss anemia due to rectal cancer Rectal CA diagnosed 07/2020 Bladder Outlet obstruction w asnds COVID-19 EXPOSURE pulmonary nodules liver lesions Enlarged prostate CKD 3 Hydronephrosis with chronic indwelling catheter Blood loss anemia s/p 2 units rbc transfusion due to rectal ca 07/21/20 unprovoked DVT - RLE - 2012 not on NOAC due to rectal ca HTN PLAN: no acute medical issues after transfusion. PFS consulted for placement, as pt cannot care for himself. family is in [place]. in contact/eyewear/droplet isolation due to recent covid exposure. no c/o fever/chills/cough/ loss of taste/gi complaints. VS, I&O, 24H, Fishbone Vital Signs/I&O Vital Signs Date Time Temp Pulse Resp B/P (MAP) Pulse Ox O2 Delivery O2 Flow Rate FiO2 07/30/20 09:44 73 147/76 07/30/20 06:00 98.1 17 95 Room Air I&O- Last 24 Hours up to 6 AM 07/30/20 06:00 Intake Total 800 ml Output Total 625 ml Balance 175 ml Laboratory Data 24H LABS Laboratory Tests 2 07/29/20 11:58: Immature Granulocyte % (Auto) 0.3, Neutrophils (%) (Auto) 69.7H, Lymphocytes (%) (Auto) 15.0L, Monocytes (%) (Auto) 12.0H, Eosinophils (%) (Auto) 2.5, Basophils (%) (Auto) 0.5, Neutrophils # (Auto) 5.3, Lymphocytes # (Auto) 1.1L, Monocytes # (Auto) 0.9H, Eosinophils # (Auto) 0.2, Basophils # (Auto) 0.0, Reticulocyte # (auto) 58.7, Nucleated Red Blood Cells % (auto) 0.0, Differential Slide Review Report, Peripheral Blood Smear Path Consult PERIPHERAL SMEAR, Percent Reticulocyte Count 1.9H, Reticulocyte Hemoglobin Equivalent 33.5, Prothrombin Time 13.9, Prothromb Time International Ratio 1.05, Anion Gap 6L, Glomerular Filtration Rate 40.2, Calcium Level 8.7L, Iron Level 52L, Total Iron Binding Capacity 332, Transferrin % Saturation 15.7L, Ferritin 39, Total Bilirubin 0.1L, Direct Bilirubin < 0.1, Aspartate Amino Transf (AST/SGOT) 19, Alanine Aminotransferase (ALT/SGPT) 10L, Alkaline Phosphatase 70, Total Creatine Kinase 86, Creatine Kinase MB 2.4, Creatine Kinase MB Relative Index 2.79, Troponin I < 0.02, Total Protein 6.5, Albumin 2.5L, Albumin/Globulin Ratio 0.6, Lipase 138 07/29/20 19:10: Urine Color YELLOW, Urine Appearance HAZY, Urine pH 5.0, Urine Specific [place] 1.014, Urine Protein 1+H, Urine Glucose (UA) NEGATIVE, Urine Ketones NEGATIVE, Urine Blood 1+H, Urine Nitrite NEGATIVE, Urine Bilirubin NEGATIVE, Urine Urobilinogen 0.2, Urine Leukocyte Esterase NEGATIVE, Urine WBC (Auto) 2, Urine RBC (Auto) 11H, Urine Hyaline Casts (Auto) 1, Urine Bacteria (Auto) NEGATIVE, Urine Squamous Epithelial Cells 0, Urine Mucus (Auto) SMALL, Urine Sperm (Auto) 07/30/20 06:20: Nucleated Red Blood Cells % (auto) 0.0, Anion Gap 6L, Glomerular Filtration Rate 47.0, Calcium Level 8.3L, Total Bilirubin 0.3#, Aspartate Amino Transf (AST/SGOT) 14, Alanine Aminotransferase (ALT/SGPT) 11L, Alkaline Phosphatase 68, Total Protein 6.1L, Albumin 2.4L, Albumin/Globulin Ratio 0.6, Magnesium Level 1.7L CBC/BMP Laboratory Tests 07/29/20 11:58 07/30/20 06:20 Microbiology Microbiology 07/30/20 Stool Occult Blood (CARMELO) - Final, Complete CHANDRIKA MIRANDA MD Jul 30, 2020 11:28
[2020-07-30] MEDS ORDERED: MAG SULF 1GM/100ML (MAG RUN) 1 GM in IV 1 EA IV ONE (11:30)
[2020-07-31 06:00] VITALS: BP 125/68
--- NOTE | 2020-07-31 09:23 | IPNPDOC ---
Date Seen The patient was seen on 07/31/20. Progress Note SUBJECTIVE: despite covid -19 exposure, pt not exhibiting f/c/cough/sob/loss of taste. still c/o generalized weakness. denies lightheadedness since 2 u rbc transfusion. 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 OBJECTIVE: PHYSICAL EXAMINATION: VITAL SIGNS: See below General: asleep, but easily arousable. no distress. no icterus or pallor HEENT: NC/AT, EOMI,dry mucus mm Lungs: CTA B/L AEBE Heart: +S1S2, RRR Abd: soft, NT, +BS x 4quadrants leg bag chronic indwelling sands Ext: no edema LABORATORY DATA: See below. MICROBIOLOGY: Please see below. IMAGING: CT HEAD WITHOUT CONTRAST 07/29/20 INDICATION: dizzy. COMPARISON: None. TECHNIQUE: Helical scanning is acquired. 5 mm axial images were reformatted. Coronal MPR images were generated. FINDINGS: Bone window settings demonstrate intact bony calvarium. Visualized paranasal si nuses are clear. There is moderate vascular calcification in the distal internal carotid arteries bilaterally. No intraorbital abnormality is seen. On soft tissue window settings, there is generalized volume loss. There is periventricular low density in the right frontal lobe on the right consistent with a lacunar infarction. This appears to be old. Similarly, there is a lacunar infarct in the lateral aspect of the basal ganglia on the left. No acute infarction is appreciated. No evidence of intracranial hemorrhage is seen. No mass, extra-axial fluid collection, or midline shift. IMPRESSION: There is diffuse atrophy and vascular calcification. There is a lacunar infarct in the right periventricular frontal lobe white matter and another in the left basal ganglia. Both of these appear to be old. No acute intracranial abnormality is appreciated.. <Electronically signed by Doe Solorio > 07/29/20 1420 ASSESSMENT: 80 yo male brought in by family for SNF placement and c/o lightheadedness. PROBLEMS: Symptomatic anemia due to rectal cancer, s/p 2 u rbc transfusion 07/29/20 chronic blood loss anemia due to rectal cancer/GI loss Physical disconditioning Rectal CA diagnosed 07/2020,refuses treatment Bladder Outlet obstruction w sands COVID-19 EXPOSURE pulmonary nodules liver lesions Enlarged prostate CKD 3 Hydronephrosis with chronic indwelling catheter Blood loss anemia s/p 2 units rbc transfusion due to rectal ca 07/21/20 unprovoked DVT - RLE - 2012 not on NOAC due to rectal ca HTN PLAN: continue w contact, droplet/eye precautions due to exposure to covid-to complete total of 14days isolation. no acute covid symptoms. pt refuses to be treated for rectal ca. supportive care for now. awaiting placement, as pt's daughter is unable to care for him, preferably closer to her in [place]. continue present management. encourage ambulation, and PT. compression stockings for DVT prophylaxis. no AC or antiplt due to bleeding rectal cancer, which is chronic. 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 VS, I&O, 24H, Fishbone Vital Signs/I&O Vital Signs Date Time Temp Pulse Resp B/P (MAP) Pulse Ox O2 Delivery O2 Flow Rate FiO2 07/31/20 08:31 68 128/70 07/31/20 06:00 98.1 18 97 Room Air I&O- Last 24 Hours up to 6 AM 07/31/20 06:00 Intake Total 1710 ml Output Total 1550 ml Balance 160 ml Laboratory Data Microbiology Microbiology 07/30/20 Stool Occult Blood (CARMELO) - Final, Complete CHANDRIKA MIRANDA MD Jul 31, 2020 09:23
[2020-07-31 09:47] LABS: HEMATOCRIT 39.4 % (42.0-52.0); MEAN CORPUSCULAR HEMOGLOBIN 28.8 pg (27.0-33.0); PLATELET COUNT, AUTOMATED 231 10^3/uL (150-450); RED BLOOD COUNT 4.38 10^6/uL (4.30-6.10)
[2020-07-31 09:57] LABS: HEMOGLOBIN 12.6 g/dl (13.5-17.5)
[2020-07-31 10:08] LABS: CALCIUM LEVEL 8.8 MG/DL (8.8-10.2); CREATININE FOR GFR 1.48 MG/DL (0.70-1.30); GLOMERULAR FILTRATION RATE 48.4 (>35); POTASSIUM SERUM 3.9 MEQ/L (3.5-5.1)
[2020-07-31 14:00] VITALS: BP 129/66
[2020-07-31 22:00] VITALS: BP 149/79
[2020-08-01 06:00] VITALS: BP 167/89
--- NOTE | 2020-08-01 08:52 | IPNPDOC ---
Date Seen The patient was seen on 08/01/20. Progress Note SUBJECTIVE: no new complaints, awaiting placement. no f/c/sob/cough. ambulating w walker with assistance w/o painter OBJECTIVE: PHYSICAL EXAMINATION: VITAL SIGNS: See below General: cooperative. dissheveled, speaks in full sentences no distress. no icterus or pallor HEENT: NC/AT, EOMI,dry mucus mm no JVD Lungs: CTA B/L AEBE no rales/wheezing Heart: +S1S2, RRR no r/m/g Abd: soft, NT, +BS x 4quadrants leg bag chronic indwelling sands Ext: no edema LABORATORY DATA: See below. MICROBIOLOGY: Please see below. IMAGING: CT HEAD WITHOUT CONTRAST 07/29/20 INDICATION: dizzy. COMPARISON: None. TECHNIQUE: Helical scanning is acquired. 5 mm axial images were reformatted. Coronal MPR images were generated. FINDINGS: Bone window settings demonstrate intact bony calvarium. Visualized paranasal s inuses are clear. There is moderate vascular calcification in the distal internal carotid arteries bilaterally. No intraorbital abnormality is seen. On soft tissue window settings, there is generalized volume loss. There is periventricular low density in the right frontal lobe on the right consistent with a lacunar infarction. This appears to be old. Similarly, there is a lacunar infarct in the lateral aspect of the basal ganglia on the left. No acute infarction is appreciated. No evidence of intracranial hemorrhage is seen. No mass, extra-axial fluid collection, or midline shift. IMPRESSION: There is diffuse atrophy and vascular calcification. There is a lacunar infarct in the right periventricular frontal lobe white matter and another in the left basal ganglia. Both of these appear to be old. No acute intracranial abnormality is appreciated.. <Electronically signed by Doe Solorio > 07/29/20 [id number] ASSESSMENT: 80 yo male brought in by family for SNF placement and c/o lighth eadedness. PROBLEMS: Symptomatic anemia due to rectal cancer, s/p 2 u rbc transfusion 07/29/20 chronic blood loss anemia due to rectal cancer/GI loss Physical disconditioning Rectal CA diagnosed 07/2020,refuses treatment Bladder Outlet obstruction w sands COVID-19 EXPOSURE pulmonary nodules liver lesions Enlarged prostate CKD 3 Hydronephrosis with chronic indwelling catheter Blood loss anemia s/p 2 units rbc transfusion due to rectal ca 07/21/20 unprovoked DVT - RLE - 2013 not on NOAC due to rectal ca HTN PLAN: no c/o lightheaded ness since rbc transfusion. still weak, and will need rehab. PFS aware that pt has no support system in the area, with his daughter in [place] unable to care for him. Placement. no other acute medical issues. continue w contact, droplet/eye precautions due to exposure to covid-to complete total of 14days isolation. VS, I&O, 24H, Fishbone Vital Signs/I&O Vital Signs Date Time Temp Pulse Resp B/P (MAP) Pulse Ox O2 Delivery O2 Flow Rate FiO2 08/01/20 06:00 97.5 63 18 167/89 (115) 16 Room Air I&O- Last 24 Hours up to 6 AM 08/01/20 06:00 Intake Total 600 ml Output Total 250 ml Balance 350 ml Laboratory Data 24H LABS Laboratory Tests 2 07/31/20 09:34: Nucleated Red Blood Cells % (auto) 0.0, Anion Gap 5L, Glomerular Filtration Rate 48.4, Calcium Level 8.8, Magnesium Level 2.0 CBC/BMP Laboratory Tests 07/31/20 09:34 Microbiology Microbiology 07/30/20 Stool Occult Blood (CARMELO) - Final, Complete CHANDRIKA MIRANDA MD Aug 01, 2020 08:52
[2020-08-01] MEDS ORDERED: amLODIPine 5 MG TAB PO ONE (09:45)
[2020-08-01] MEDS: amLODIPine 5 MG TAB PO SCH (10:30)
[2020-08-01 10:31] VITALS: BP 142/70
[2020-08-01 14:00] VITALS: BP 141/71
[2020-08-01 22:00] VITALS: BP 116/63
[2020-08-02 06:00] VITALS: BP 152/78
[2020-08-02] MEDS: amLODIPine 5 MG TAB PO SCH (09:02)
--- NOTE | 2020-08-02 09:17 | IPNPDOC ---
Date Seen The patient was seen on 08/02/20. Progress Note SUBJECTIVE: "I'm still weak." pt open to rehab placement. no brbpr, melena, black tarry stools. no cp, sob. no DELGADO, or PND. despite covid exposure, no fever, chills, loss of taste, abd pain/diarrhea, sob, cough. still on contact/droplet/eye precautions. OBJECTIVE: PHYSICAL EXAMINATION: VITAL SIGNS: See below General: AAOx3 dissheveled speaks in full sentences no distress. no icterus or pallor HEENT: NC/AT, EOMI,dry mucus mm no JVD chapped lips Lungs: CTA B/L AEBE no rales/wheezing Heart: +S1S2, RRR no r/m/g Abd: soft, NT, +BS x 4quadrants leg bag chronic indwelling sands Ext: no edema LABORATORY DATA: See below. MICROBIOLOGY: Please see below. IMAGING: CT HEAD WITHOUT CONTRAST 07/29/20 INDICATION: dizzy. COMPARISON: None. TECHNIQUE: Helical scanning is acquired. 5 mm axial images were reformatted. Coronal MPR images were generated. FINDINGS: Bone window settings demonstrate intact bony calvarium. Visualized paranasal sinuses are clear. There is moderate vascular calcification in the distal internal carotid arteries bilaterally. No intraorbital abnormality is seen. On soft tissue window settings, there is generalized volume loss. There is periventricular low density in the right frontal lobe on the right consistent with a lacunar infarction. This appears to be old. Similarly, there is a lacunar infarct in the lateral aspect of the basal ganglia on the left. No acute infarction is appreciated. No evidence of intracranial hemorrhage is seen. No mass, extra-axial fluid collection, or midline shift. IMPRESSION: There is diffuse atrophy and vascular calcification. There is a lacunar infarct in the right periventricular frontal lobe white matter and another in the left basal ganglia. Both of these appear to be old. No acute intracranial abnormality is appreciated.. <Electronically signed by Doe Solorio > 07/29/20 2495 ASSESSMENT: 80 yo male brought in by family for SNF placement and c/o lighthea dedness. PROBLEMS: Symptomatic anemia due to rectal cancer, s/p 2 u rbc transfusion 07/29/20 chronic blood loss anemia due to rectal cancer/GI loss Physical disconditioning Rectal CA diagnosed 07/2020,refuses treatment Bladder Outlet obstruction w sands COVID-19 EXPOSURE pulmonary nodules liver lesions Enlarged prostate CKD 3 Hydronephrosis with chronic indwelling catheter Blood loss anemia s/p 2 units rbc transfusion due to rectal ca 07/21/20 unprovoked DVT - RLE - 2012 not on NOAC due to rectal ca HTN unable to care for self at home PLAN: awaiting placement. pt has no new medical complaints. daughter requests a callf rom pfs after 1215pm. she is teaching an online class from 11-12:15pm to discuss discharge options. VS, I&O, 24H, Fishbone Vital Signs/I&O Vital Signs Date Time Temp Pulse Resp B/P (MAP) Pulse Ox O2 Delivery O2 Flow Rate FiO2 08/02/20 09:02 79 131/72 08/02/20 06:00 97.8 16 94 Room Air I&O- Last 24 Hours up to 6 AM 08/02/20 06:00 Intake Total 570 ml Output Total 2250 ml Balance -1680 ml Laboratory Data Microbiology Microbiology 07/30/20 Stool Occult Blood (CARMELO) - Final, Complete CHANDRIKA MIRANDA MD Aug 02, 2020 09:17
[2020-08-02 14:00] VITALS: BP 137/64
[2020-08-02 22:00] VITALS: BP 131/72
[2020-08-03 06:00] VITALS: BP 124/70
[2020-08-03] MEDS: amLODIPine 5 MG TAB PO SCH (09:07)
[2020-08-03 10:18] LABS: BASO # 0.1 10^3/uL (0.0-0.2); BASO % 0.8 % (0.0-1.0); EOS # 0.3 10^3/uL (0.0-0.5); EOS % 4.2 % (0.0-3.0); HEMATOCRIT 40.8 % (42.0-52.0); HEMOGLOBIN 12.8 g/dl (13.5-17.5); LYMPH % 30.2 % (24.0-44.0); MEAN CORPUSCULAR HEMOGLOBIN 28.9 pg (27.0-33.0); MEAN CORPUSCULAR HGB CONC 31.4 g/dl (32.0-36.5); MEAN CORPUSCULAR VOLUME 92.1 fl (80.0-96.0); MONO # 0.9 10^3/uL (0.0-0.8); MONO % 14.4 % (0.0-5.0); NEUTROPHILS # 3.2 10^3/uL (1.5-8.5); NEUTROPHILS % 49.6 % (36.0-66.0); PLATELET COUNT, AUTOMATED 246 10^3/uL (150-450); RED BLOOD COUNT 4.43 10^6/uL (4.30-6.10); WHITE BLOOD COUNT 6.5 10^3/uL (4.0-10.0)
[2020-08-03 10:34] LABS: CREATININE FOR GFR 1.46 MG/DL (0.70-1.30); GLOMERULAR FILTRATION RATE 49.2 (>35); POTASSIUM SERUM 3.6 MEQ/L (3.5-5.1)
[2020-08-03 14:00] VITALS: BP 137/68
--- NOTE | 2020-08-03 16:38 | IPNPDOC ---
Text Note Date of Service The patient was seen on 08/03/20. NOTE SUBJECTIVE: Having maroon colored stools since this morning with some bright red blood small amounts of stool. Had dark stools yesterday also. No abdominal pain, No fever or chills, no SOB. PHYSICAL EXAMINATION: VITAL SIGNS: As below General: AAOx3 , sitting up in chair in no acute distress. HEENT: NC/AT, EOMI, moist mucous membranes Neck: no JVD , no thyromegaly Lungs: CTA B/L vesicular breath sounds. no rales/wheezing Heart: +S1S2, RRR no r/m/g Abd: soft, NT, +BS x 4quadrants leg bag with chronic indwelling sands Ext: no edema LABORATORY DATA adn Radiology: reviewed. CT HEAD WITHOUT CONTRAST 07/29/20 There is diffuse atrophy and vascular calcification. There is a lacunar infarct in the right periventricular frontal lobe white matter and another in the left basal ganglia. Both of these appear to be old. No acute intracranial abnormality is appreciated.. 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 CT head negative. He continues to have o ccasional bloody rectal discharge, but "not much" and was not orthostatic in the ER. He was having symptomatic anemia. He agreed to rbc transfusion, Rectal CA diagnosed in 07/2020 Untreated Treatment would require the patient to have chemo/RT first to reduce the tumor, then abdominoperineal resection with a permanent colostomy. Patient stated "At my age, I am not interested in doing chemo/radiation, and a 4 hour surgery. If God decides to take me, I'm ready to go." Chronic blood loss anemia/ symptomatic from recurrent GIBs from the rectal cancer s/p 2units of transfusion will transfuse prn. HH stable. BPH/Bladder Outlet obstruction/ hydronephrosis chronic indwelling sands CKD 3 creatinine at baseline. Unprovoked DVT - RLE - 2012 not on NOAC due to rectal ca HTN amlodipine COVID exposure last on 07/23/20 quarantine till 08/06/20 Simple liver cysts. Multiple Pulmonary nodules largest 6 mm some are spiculated could be metastatic nodules Physical deconditioning progressive cancer, unable to take care of himself at home for STR VS,Fishbone, I+O VS, Fishbone, I+O Laboratory Tests 08/03/20 09:37 Vital Signs Date Time Temp Pulse Resp B/P (MAP) Pulse Ox O2 Delivery O2 Flow Rate FiO2 08/03/20 14:00 98.1 78 17 137/68 (91) 98 Room Air I&O- Last 24 Hours up to 6 AM 08/03/20 05:59 Intake Total 840 ml Output Total 1800 ml Balance -960 ml MARI KEITH MD Aug 03, 2020 16:38
[2020-08-03 22:00] VITALS: BP 131/60
[2020-08-04 06:00] VITALS: BP 124/76
[2020-08-04] MEDS: amLODIPine 5 MG TAB PO SCH (08:28)
--- NOTE | 2020-08-04 11:05 | IPNPDOC ---
Text Note Date of Service The patient was seen on 08/04/20. NOTE SUBJECTIVE: No overnight events, sitting comfortably in bed. has intermitted bloody stools. PHYSICAL EXAMINATION: VITAL SIGNS: As below General: AAOx3 , sitting up in chair in no acute distress. HEENT: NC/AT, EOMI, moist mucous membranes Neck: no JVD , no thyromegaly Lungs: CTA B/L vesicular breath sounds. no rales/wheezing Heart: +S1S2, RRR no r/m/g Abd: soft, NT, +BS x 4quadrants leg bag with chronic indwelling sands Ext: no edema LABORATORY DATA adn Radiology: reviewed. CT HEAD WITHOUT CONTRAST 07/29/20 There is diffuse atrophy and vascular calcification. There is a lacunar infarct in the right periventricular frontal lobe white matter and another in the left basal ganglia. Both of these appear to be old. No acute intracranial abnormality is appreciated.. 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 CT head negative. He continues to have occasional bloody rectal discharge, but "not much" and was not orthostatic in t ER. He was having symptomatic anemia. He agreed to rbc transfusion, Rectal CA diagnosed in 07/2020 Untreated Treatment would require the patient to have chemo/RT first to reduce the tumor, then abdominoperineal resection with a permanent colostomy. Patient stated "At my age, I am not interested in doing chemo/radiation, and a 4 hour surgery. If God decides to take me, I'm ready to go." Chronic blood loss anemia/ symptomatic from recurrent GIBs from the rectal cancer s/p 2units of transfusion will transfuse prn. HH stable. BPH/Bladder Outlet obstruction/ hydronephrosis chronic indwelling sands CKD 3 creatinine at baseline. Unprovoked DVT - RLE - 2012 not on NOAC due to rectal ca HTN amlodipine COVID exposure last on 07/23/20 quarantine till 08/06/20 Simple liver cysts. Multiple Pulmonary nodules largest 6 mm some are spiculated could be metastatic nodules Physical deconditioning progressive cancer, unable to take care of himself at home for STR VS,Fishbone, I+O VS, Fishbone, I+O Vital Signs Date Time Temp Pulse Resp B/P (MAP) Pulse Ox O2 Delivery O2 Flow Rate FiO2 08/04/20 08:28 77 136/68 08/04/20 06:00 98.3 18 97 Room Air I&O- Last 24 Hours up to 6 AM 08/04/20 06:00 Intake Total 1600 ml Output Total 1500 ml Balance 100 ml MARI KEITH MD Aug 04, 2020 11:05
[2020-08-04 13:52] VITALS: BP 136/67
[2020-08-04 22:00] VITALS: BP 133/65
[2020-08-05 06:00] VITALS: BP 147/63
[2020-08-05] MEDS: amLODIPine 5 MG TAB PO SCH (09:39)
[2020-08-05 14:00] VITALS: BP 120/67
[2020-08-06 06:00] VITALS: BP 137/72
[2020-08-06] MEDS: amLODIPine 5 MG TAB PO SCH (09:15)
[2020-08-07 05:59] VITALS: BP 124/79
[2020-08-07] MEDS: amLODIPine 5 MG TAB PO SCH (08:45)
[2020-08-08 06:00] VITALS: BP 122/71
[2020-08-08 06:54] LABS: HEMATOCRIT 34.2 % (42.0-52.0); HEMOGLOBIN 10.7 g/dl (13.5-17.5); MEAN CORPUSCULAR HEMOGLOBIN 28.1 pg (27.0-33.0); MEAN CORPUSCULAR HGB CONC 31.3 g/dl (32.0-36.5); MEAN CORPUSCULAR VOLUME 89.8 fl (80.0-96.0); PLATELET COUNT, AUTOMATED 209 10^3/uL (150-450); RED BLOOD COUNT 3.81 10^6/uL (4.30-6.10); WHITE BLOOD COUNT 6.5 10^3/uL (4.0-10.0)
[2020-08-08 07:12] LABS: CALCIUM LEVEL 8.7 MG/DL (8.8-10.2); CREATININE FOR GFR 1.42 MG/DL (0.70-1.30); GLOMERULAR FILTRATION RATE 50.8 (>35); POTASSIUM SERUM 4.3 MEQ/L (3.5-5.1)
[2020-08-08] MEDS: amLODIPine 5 MG TAB PO SCH (09:17)
[2020-08-09 06:00] VITALS: BP 155/87
[2020-08-09] MEDS: amLODIPine 5 MG TAB PO SCH (09:50)
[2020-08-10 06:00] VITALS: BP 129/72
[2020-08-10] MEDS: amLODIPine 5 MG TAB PO SCH (08:52)
[2020-08-11 06:00] VITALS: BP 136/78
[2020-08-11] MEDS: amLODIPine 5 MG TAB PO SCH (07:53)
[2020-08-12 06:00] VITALS: BP 129/69
[2020-08-12 09:00] VITALS: BP 110/60
[2020-08-12] MEDS: amLODIPine 5 MG TAB PO SCH (09:00)
--- NOTE | 2020-08-12 17:13 | IPNPDOC ---
Text Note Date of Service The patient was seen on 08/12/20. NOTE SUBJECTIVE: Had an episode of hematuria this week from trauma to the sands stopped spontaneously. Has intermittent ashanti and BRBPR. No other issues this week. PHYSICAL EXAMINATION: VITAL SIGNS: As below General: AAOx3 , sitting up in chair in no acute distress. HEENT: NC/AT, EOMI, moist mucous membranes Neck: no JVD , no thyromegaly Lungs: CTA B/L vesicular breath sounds. no rales/wheezing Heart: +S1S2, RRR no r/m/g Abd: soft, NT, +BS x 4quadrants leg bag with chronic indwelling sands Ext: no edema LABORATORY DATA adn Radiology: reviewed. CT HEAD WITHOUT CONTRAST 07/29/20 There is diffuse atrophy and vascular calcification. There is a lacunar infarct in the right periventricular frontal lobe white matter and another in the left basal ganglia. Both of these appear to be old. No acute intracranial abnormality is appreciated.. 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 CT head negative. He continues to have occasional bloody rectal discharge, but "not much" and was not orthostatic in the ER. He was having symptomatic anemia. He agreed to rbc transfusion, Rectal CA diagnosed in 07/2020 Untreated Treatment would require the patient to have chemo/RT first to reduce the tumor, then abdominoperineal resection with a permanent colostomy. Patient stated "At my age, I am not interested in doing chemo/radiation, and a 4 hour surgery. If God decides to take me, I'm ready to go." Chronic blood loss anemia from recurrent GIBs from the rectal cancer s/p 2units of transfusion will transfuse prn. BPH/Bladder Outlet obstruction/ hydronephrosis chronic indwelling sands CKD 3 creatinine at baseline. Unprovoked DVT - RLE - 2012 not on NOAC due to rectal ca HTN amlodipine COVID exposure last on 07/23/20 quarantine ended 08/06/20 Simple liver cysts. Multiple Pulmonary nodules largest 6 mm some are spiculated could be metastatic nodules Physical deconditioning progressive cancer, unable to take care of himself at home for STR VS,Fishbone, I+O VS, Fishbone, I+O Vital Signs Date Time Temp Pulse Resp B/P (MAP) Pulse Ox O2 Delivery O2 Flow Rate FiO2 08/12/20 06:00 96.7 79 16 129/69 (89) 96 Room Air I&O- Last 24 Hours up to 6 AM 08/12/20 07:00 Intake Total 480 ml Output Total 1500 ml Balance -1020 ml MARI KEITH MD Aug 12, 2020 07:58
[2020-08-13 06:00] VITALS: BP 136/78
[2020-08-14 06:00] VITALS: BP 130/77
[2020-08-15 06:00] VITALS: BP 132/78
[2020-08-16 06:00] VITALS: BP 127/78
[2020-08-16 07:38] LABS: HEMATOCRIT 35.3 % (42.0-52.0); HEMOGLOBIN 11.7 g/dl (13.5-17.5); MEAN CORPUSCULAR HEMOGLOBIN 29.1 pg (27.0-33.0); MEAN CORPUSCULAR HGB CONC 33.1 g/dl (32.0-36.5); MEAN CORPUSCULAR VOLUME 87.8 fl (80.0-96.0); PLATELET COUNT, AUTOMATED 242 10^3/uL (150-450); RED BLOOD COUNT 4.02 10^6/uL (4.30-6.10)
[2020-08-16 08:08] LABS: CALCIUM LEVEL 8.6 MG/DL (8.8-10.2); CREATININE FOR GFR 1.33 MG/DL (0.70-1.30); GLOMERULAR FILTRATION RATE 54.8 (>35); POTASSIUM SERUM 3.4 MEQ/L (3.5-5.1)
[2020-08-17 06:00] VITALS: BP 125/78
[2020-08-17] MEDS ORDERED: POTASSIUM CHLORIDE 10% LIQ 20 MEQ/15 ML UDC PO ONE (07:15)
[2020-08-17] MEDS ORDERED: POTASSIUM CHLORIDE 10 MEQ SR TABLET PO ONE (09:00)
--- NOTE | 2020-08-17 11:08 | DS.PDOC ---
Discharge Summary General Date of Admission Jul 29, 2020 at 15:33 Date of Discharge 08/17/2020 Discharge Summary PROCEDURES PERFORMED DURING STAY: [None]. ADMITTING DIAGNOSES: 1. lightheaded DISCHARGE DIAGNOSES: 1. Symptomatic anemia due to rectal cancer COMPLICATIONS/CHIEF COMPLAINT: Lightheadedness. HISTORY OF PRESENT ILLNESS: HPI from H&P: 80 yo male DNR/DNI presented to the ER w c/o lightheadedness x3 at home, and history of falls -once on the cement in his garage one month ago, for SNF placement as he is unable to take care of hi mself. He denies any chest pain, pressure, tightness, palpitations, sob, but admits to dizziness without a fall this time. His daughter lives in [place] as a teacher with 2 teenagers and a , and will be unable to care for him. Despite having a chronic indwelling sands, he denies dysuria, fever, chills, and malodorous urine, or flank pain. He was exposed to a COVID positive person, and is currently on a 14 day isolation per the Dept of health. He was recently diagnosed with a large low lying rectal mass by Dr. Corcoran, General Surgery, with pathology confirming rectal cancer. He had acute blood loss anemia s/p 2 urbc transfusion during his 07/21/20-07/27/20 hospital admission at [facility]. At that time, he was also found to have urine retention, due to an enlarged prostate causing bladder outlet obstruction,hydronephrosis requiring a sands catheter, and acute renal failure complicated by enterococcus faecalis UTI. His daughter lives in [place], and has discussed with both general surgery Dr. Corcoran, and Dr. Connolly, hematology/oncologist, that she has reservations about a major surgery, as it would require the patient to have chemo/RT first to reduce the tumor, then abdominoperineal resection with a permanent colostomy. He was discharged home 07/27/[address] Trev hart. He presents with c/o lightheadedness. CT head negative. hgb 8.4 from 8.6 on discharge, and re iesha at baseline ckd3 with creatinine of 1.7 now from 1.6-1.8 baseline. He continues to have occasional bloody rectal discharge, but "not much" and was not orthostatic in the ER. Hospitalist was asked to admit for placement. He agreed to rbc transfusion, but says, "At my age, I am not interested in doing chemo/radiation, and a 4 hour surgery. If God decides to take me, I'm ready to go." He denies suicidal ideation or homicidal tendency. EKG sinus. 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 CT head negative. He continues to have occasional bloody rectal discharge, but "not much" and was not orthostatic in the ER. He was having symptomatic anemia. He agreed to rbc transfusion, Rectal CA diagnosed in 07/2020 Untreated Treatment would require the patient to have chemo/RT first to reduce the tumor, then abdominoperineal resection with a permanent colostomy. Patient stated "At my age, I am not interested in doing chemo/radiation, and a 4 hour surgery. If God decides to take me, I'm ready to go." Chronic blood loss anemia from recurrent GIBs from the rectal cancer s/p 2units of transfusion will transfuse prn. BPH/Bladder Outlet obstruction/ hydronephrosis chronic indwelling sands CKD 3 creatinine at baseline. Unprovoked DVT - RLE - 2012 not on NOAC due to rectal ca HTN amlodipine COVID exposure last on 07/23/20 quarantine ended 08/06/20 Simple liver cysts. Multiple Pulmonary nodules largest 6 mm some are spiculated could be metastatic nodules Physical deconditioning progressive cancer, unable to take care of himself at home for STR DISCHARGE MEDICATIONS: Please see below. ALLERGIES: Please see below. PHYSICAL EXAMINATION ON DISCHARGE: Constitutional: Awake and alert, in no apparent distress in chair ENT: Sclera are clear. Mucosa is moist. Respiratory: Lungs CTA bilaterally. No respiratory distress. No use of accessory muscles. Cardiovascular: RRR S1 and S2 are normal, no murmur Gastrointestinal: Abdomen is soft, non distended, non tender, BS present. leg bag with chronic indwelling sands Musculoskeletal: No edema Neurologic: No focal neurological deficit Mental Status: A&O x3, normal affect LABORATORY DATA: Please see below. IMAGING: CT HEAD WITHOUT CONTRAST 07/29/20 There is diffuse atrophy and vascular calcification. There is a lacunar infarct in the right periventricular frontal lobe white matter and another in the left basal ganglia. Both of these appear to be old. No acute intracranial abnormality is appreciated.. PROGNOSIS: fair ACTIVITY: [As tolerated]. DIET: regular diet DISPOSITION: [facility] keep home DISCHARGE INSTRUCTIONS: Please follow up with your primary care physician within 1 week from discharge. If you do not have one, please follow up with us to schedule an appointment. Please keep all of your follow up appointments. Please call central to book your appointments with hospital specialists. Please take all your medications as prescribed. Please call/come to Clinic or go to the Emergency Department if - Temp >101, intractable Nausea/Vomiting, Diarrhea, Mouth sores, Headaches, Altered mental status, Seizures, sudden onset of swelling, bleeding, shortness of breath or chest pain. DISCHARGE CONDITION: [Stable]. TIME SPENT ON DISCHARGE: Greater than 45 minutes. Vital Signs/I&Os Vital Signs Date Time Temp Pulse Resp B/P (MAP) Pulse Ox O2 Delivery O2 Flow Rate FiO2 08/17/20 06:00 98.4 86 18 125/78 (94) 93 Room Air I&O- Last 24 Hours up to 6 AM 08/17/20 06:00 Intake Total 900 ml Output Total 250 ml Balance 650 ml Laboratory Data Labs 24H Laboratory Tests 2 08/16/20 16:52: Coronavirus (COVID-19)(PCR) NEGATIVE Discharge Medications Scheduled Amlodipine Besylate (Amlodipine Besylate) 2.5 Mg Tablet, 2.5 MG PO DAILY, (Reported) Scheduled PRN Acetaminophen (Tylenol Extra Strength) 500 Mg Tablet, 500 MG PO Q6H PRN for HEADACHE, (Reported) Allergies Coded Allergies: sulfamethoxazole (Verified Allergy, Unknown, 07/13/20) MARIBELL METZGER MD Aug 17, 2020 11:08
== END 2020-08-17 13:43 | DRG 812 ==
LOC: M ED 10:40 → M ED INP 15:33 → ENRESERV 15:45 → M MSPAV 17:47
PROVIDERS: ADMIT General Practice; ATTEND Family Medicine
PROC: 30233N1 Transfusion of Nonautologous Red Blood Cells into Peripheral Vein, Percutaneous Approach (ICD-10-PCS; principal; 2020-07-29)
DX: D50.0 Iron deficiency anemia secondary to blood loss (chronic) (principal); C20 Malignant neoplasm of rectum; N13.30 Unspecified hydronephrosis; N18.30 Chronic kidney disease, stage 3 unspecified; Z66 Do not resuscitate; R29.6 Repeated falls; N40.0 Benign prostatic hyperplasia without lower urinary tract symptoms; I12.9 Hypertensive chronic kidney disease with stage 1 through stage 4 chronic kidney disease, or unspecified chronic kidney disease; R91.8 Other nonspecific abnormal finding of lung field; Z88.2 Allergy status to sulfonamides

== ENCOUNTER 2020-08-18 15:11 | Outpatient (RCR) ==
[~2020-08-18 15:11] MED LIST changes: +AMLO2.5T3 PO
[2020-08-30] MEDS ORDERED: FLEEENE12 PR (13:23)
[2020-08-30] MEDS ORDERED: BISA10SU27 PR (13:23)
[2020-08-30] MEDS ORDERED: MIRT-62 PO (13:23)
[2020-08-30] MEDS ORDERED: MOM30SS PO (13:23)
[2020-08-30] MEDS ORDERED: VITA-113 SL (13:23)
== END 2020-08-30 ==
LOC: SKLAB3 15:11
DX: Z20.828 Contact with and (suspected) exposure to other viral communicable diseases (principal)

== ENCOUNTER → 2020-08-24 | Outpatient (REF) ==
[~2020-08-24] MED LIST changes: +BISA10SU27 PR; +FLEEENE12 PR; +MOM30SS PO; +REME15TA PO; +VITA-113 SL
[2020-08-24 09:35] LABS: HEMATOCRIT 30.9 % (42.0-52.0); HEMOGLOBIN 9.9 g/dl (13.5-17.5); MEAN CORPUSCULAR HEMOGLOBIN 28.6 pg (27.0-33.0); MEAN CORPUSCULAR VOLUME 89.3 fl (80.0-96.0); PLATELET COUNT, AUTOMATED 239 10^3/uL (150-450); RED BLOOD COUNT 3.46 10^6/uL (4.30-6.10); WHITE BLOOD COUNT 7.3 10^3/uL (4.0-10.0)
[2020-08-24 10:00] LABS: CALCIUM LEVEL 9.2 MG/DL (8.8-10.2); CREATININE FOR GFR 1.26 MG/DL (0.70-1.30); GLOMERULAR FILTRATION RATE 58.3 (>35); POTASSIUM SERUM 3.1 MEQ/L (3.5-5.1)
[2020-08-24 10:05] LABS: FREE T4 0.92 NG/DL (0.76-1.46)
== END ==
LOC: SKLAB3 09:32
DX: E03.9 Hypothyroidism, unspecified (principal); E87.6 Hypokalemia

== ENCOUNTER 2020-08-30 12:26 | Inpatient (IN) | payer MEDICARE ==
[~2020-08-30] VITALS: Ht 172.7 cm; Wt 64.4 kg
[~2020-08-30 12:26] MED LIST changes: -BISA10SU27 PR; -FLEEENE12 PR; -MIRT-62 PO; -MOM30SS PO; -VITA-113 SL
[2020-08-30 13:08] LABS: BASO % 0.3 % (0.0-1.0); EOS % 0.3 % (0.0-3.0); HEMATOCRIT 30.9 % (42.0-52.0); HEMOGLOBIN 9.9 g/dl (13.5-17.5); LYMPH # 1.7 10^3/uL (1.5-5.0); LYMPH % 15.5 % (24.0-44.0); MEAN CORPUSCULAR HEMOGLOBIN 28.8 pg (27.0-33.0); MEAN CORPUSCULAR VOLUME 89.8 fl (80.0-96.0); MONO # 0.9 10^3/uL (0.0-0.8); MONO % 8.6 % (0.0-5.0); NEUTROPHILS # 8.2 10^3/uL (1.5-8.5); NEUTROPHILS % 74.8 % (36.0-66.0); PLATELET COUNT, AUTOMATED 226 10^3/uL (150-450); RED BLOOD COUNT 3.44 10^6/uL (4.30-6.10); WHITE BLOOD COUNT 10.9 10^3/uL (4.0-10.0)
[2020-08-30 13:17] LABS: INR 1.06
[2020-08-30 13:18] LABS: PARTIAL THROMBOPLASTIN TIME 28.4 SECONDS (24.2-38.5)
[2020-08-30] MEDS ORDERED: MIRT-62 PO (13:23)
[2020-08-30] MEDS ORDERED: MOM30SS PO (13:23)
[2020-08-30] MEDS ORDERED: BISA10SU27 PR (13:23)
[2020-08-30] MEDS ORDERED: VITA-113 SL (13:23)
[2020-08-30] MEDS ORDERED: FLEEENE12 PR (13:23)
--- NOTE | 2020-08-30 13:23 | REP ---
INDICATION: SOB;cough. COMPARISON: Comparison chest x-ray September 04, 2013.. TECHNIQUE: AP semi-erect single portable view. FINDINGS: Lungs are exposed at a lesser level of inspiration today. There are increased markings in the bases and platelike atelectasis is seen in the left base. Pleural angles are sharp. There is mild gaseous distention of the colon and there are loops of colon interposed between the diaphragm and the liver on the right. No acute infiltrate is appreciated. Heart size is exaggerated by the relatively low level of inspiration. IMPRESSION: Low level of inspiration. Platelike atelectasis left base. Mild gaseous distention of the colon. No definite infiltrate. <Electronically signed by Doe Solorio > 08/30/20 [id number]
[2020-08-30 13:39] LABS: ALBUMIN 2.7 GM/DL (3.2-5.2); BILIRUBIN,DIRECT 0.1 MG/DL (0.0-0.2); BILIRUBIN,TOTAL 0.3 MG/DL (0.2-1.0); CALCIUM LEVEL 8.7 MG/DL (8.8-10.2); CREATININE FOR GFR 1.54 MG/DL (0.70-1.30); GLOMERULAR FILTRATION RATE 46.3 (>35); POTASSIUM SERUM 3.8 MEQ/L (3.5-5.1); TOTAL PROTEIN 6.1 GM/DL (6.4-8.2)
[2020-08-30] MEDS ORDERED: ISOVUE-370 76% 100ML VIAL As Ordered ONE (13:55)
--- NOTE | 2020-08-30 14:55 | REP ---
INDICATION: abdominal distention/vomiting; r/o obstruction. Recent diagnosis rectal carcinoma. COMPARISON: Comparison CT study abdomen and pelvis 15 July 2020.. TECHNIQUE: Helical scanning was acquired and 4 mm axial images are re-formatted. Coronal and sagittal MPR images were generated and reviewed. The contrast enhancement dose is 100 mL of intravenous Isovue 370. 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 Transverse diameter of the cecum is 12.[address] images there is mild bilateral lower lobe platelike atelectasis in the lungs. There is evidence of COPD. Multiple hepatic cysts are noted. There is some diffuse thickening of the left adrenal gland. No adrenal mass lesion is observed. There is a tiny accessory splenule. There is a small cyst in the body of the pancreas which measures 1.6 cm in greatest diameter. No other pancreatic lesion is seen. The gallbladder is unremarkable. No hepatic mass lesion is observed. There are bilateral renal cortical cysts noted. The largest of these is in the midpole region of the left kidney. This cyst measures 5.4 cm in greatest diameter. There is no evidence of hydronephrosis today. A Vera catheter is seen in the urinary bladder. Urinary bladder fisher are diffusely thickened. Prostate is enlarged moderately as before. There is a heterogeneously enhancing annular mass in the rectum with mural thickening and perirectal fat nodularity. There is and edema pattern in the presacral soft tissues. No definite adenopathy is appreciated. There is left colonic diverticulosis. CT images confirm the presence of moderately dilated air and fluid distended colon proximal to the rectal lesion. Borderline size fluid-filled small-bowel loops are noted. There is no evidence of free intraperitoneal air. No ascites is seen. Bone window settings show no focal bony destructive lesion. IMPRESSION: Findings consistent with distal left colonic obstruction due to annular enhancing rectal mass. There is nodularity in the perirectal fat. No definite adenopathy is seen. The colon is rather dilated with cecum dilated to a diameter of 12.9 cm. Left colonic diverticulosis is noted. There are cysts in the liver and in the body of the pancreas as above. Renal cortical cysts are noted. Vera catheter in place. Diffuse bladder wall thickening. No evidence of free intraperitoneal air. <Electronically signed by Doe Solorio > 08/30/20 [id number]
[2020-08-30] MEDS ORDERED: metroNIDAZOLE 500 MG in IV 1 EA IV ONE (16:15)
[2020-08-30] MEDS ORDERED: CIPROFLOXACIN 400 MG in IV 1 EA IV ONE (16:15)
--- NOTE | 2020-08-30 17:45 | HPEPDOC ---
General Date of Admission 08/30/20 Date of Service: Aug 30, 2020 Chief Complaint The patient is a 80-year-old male admitted with a reason for visit of fever abd distension. Source: Patient, RN/, Old records History of Present Illness 80 year old male diagnosed with Rectal cancer in July 2020 and had refused definitive surgery, chronic indwelling sands, before presented from [facility] for abdominal distension and fever. He had a abdominal xray done this am at [facility] and was found to have bowel obstruction Vs ileus so was sent to the ED. Patient reports that yesterday night he had vomiting 2 to 3 times and then he felt better and went to sleep. He noticed a little abdominal distension yesterday but did not have any pain. He reports that he has liquid stool incontinence at night reports that he had flatus. Today he had a fever of 104 and he his abdomen was more distended. He denied any abdominal pain or any nausea or vomiting. Work up In the ED showed Large bowel obstruction. He also had a very dirty ua. He was admitted for bowel obstruction and possible catheter related UTI. Home Medications Scheduled Cyanocobalamin (Vitamin B-12) (Vitamin B-12) 1,000 Mcg Tab.subl, 1,000 MCG SL DAILY, (Reported) Mirtazapine (Remeron) 15 Mg Tablet, 15 MG PO QHS, (Reported) Scheduled PRN Acetaminophen (Tylenol Extra Strength) 500 Mg Tablet, 500 MG PO Q6H PRN for HEADACHE, (Reported) Bisacodyl (Bisacodyl) 10 Mg Supp.rect, 10 MG CA DAILY PRN for CONSTIPATION, (Reported) Milk Of Magnesia (Milk of Magnesia) 2,400 Mg/10 Ml Oral.susp, 10 ML PO DAILY PRN for CONSTIPATION, (Reported) Sodium Phosphate,Phillips-Dibasic (Fleet Enema) 133 Ml Enema, 1 EFRAIN CA DAILY PRN for CONSTIPATION, (Reported) Allergies Coded Allergies: sulfamethoxazole (Verified Allergy, Unknown, 07/13/20) Past Medical History Medical History Rectal CA diagnosed in 07/2020 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 Multiple Pulmonary nodules largest 6 mm some are spiculated. Family History PATERNAL GRAND FATHER: COLON CARCINOMA, ALS, SIBLINGS: DIAGNOSED WITH DIABETES PATERNAL GRAND MOTHER: UNSPECIFIED HEART DISEASE Social History * Smoker: former Smoker Alcohol: Denies Drugs: denies A-FIB/CHADSVASC A-FIB History Current/History of A-Fib/PAF?: No Review of Systems Constitutional: Reports: Fever, Fatigue Eyes: Denies: Pain, Vision change ENT: Denies: Head Aches, Ear Pain, Dysphagia Skin: Denies: Rash, Lesions, Breakdown Pulmonary: Reports: Cough Cardiovascular: Denies: Chest Pain, Palpitations, Orthopnea, Paroxysmal Noc. Dyspnea, Lt Headedness Gastrointestinal: Reports: Vomiting, Hematochezia, Other Symptoms (distension) Genitourinary: Reports: Retention, Other Symptoms (chronic sands) Hematologic: Denies: Bruising, Bleeding Excessively Musculoskeletal: Denies: Neck Pain, Back Pain, Joint Pain, Muscle Pain, Spasms Physical Examination General Exam: Positive: Alert, Cooperative, No Acute Distress Eye Exam: Positive: PERRLA, Conjunctiva & lids normal, EOMI; Negative: Sclera icteric ENT Exam: Positive: Atraumatic, Mucous membr. moist/pink, Pharynx Normal Neck Exam: Positive: Supple; Negative: JVD, thyromegaly Chest Exam: Positive: Clear to auscultation, Normal air movement Heart Exam: Positive: Rate Normal, Regular Rhythm, Normal S1, Normal S2; Negative: Murmurs, Rubs Abdomen Exam: Positive: BS Hyperactive, Soft, Other (distended, tinkling sounds.); Negative: Tenderness Extremity Exam: Negative: Clubbing, Cyanosis, Edema Skin Exam: Positive: Nl turgor and temperature; Negative: Breakdown, Lesion Neuro Exam: Positive: Normal Speech, Strength at 5/5 X4 ext, Normal Tone Vital Signs Vital Signs Date Time Temp Pulse Resp B/P (MAP) Pulse Ox O2 Delivery O2 Flow Rate FiO2 08/30/20 15:15 77 16 146/72 (96) 93 Room Air 08/30/20 12:33 99.3 Laboratory Data Labs 24H Laboratory Tests 2 08/30/20 12:48: Immature Granulocyte % (Auto) 0.5, Neutrophils (%) (Auto) 74.8H, Lymphocytes (%) (Auto) 15.5L, Monocytes (%) (Auto) 8.6H, Eosinophils (%) (Auto) 0.3, Basophils (%) (Auto) 0.3, Neutrophils # (Auto) 8.2, Lymphocytes # (Auto) 1.7, Monocytes # (Auto) 0.9H, Eosinophils # (Auto) 0.0, Basophils # (Auto) 0.0, Nucleated Red Blood Cells % (auto) 0.0, Urine Color YELLOW, Urine Appearance CLOUDYH, Urine pH 5.0, Urine Specific [place] 1.020, Urine Protein 2+H, Urine Glucose (UA) NEGATIVE, Urine Ketones NEGATIVE, Urine Blood 1+H, Urine Nitrite NEGATIVE, Urine Bilirubin NEGATIVE, Urine Urobilinogen 0.2, Urine Leukocyte Esterase 3+H, Urine WBC (Auto) TNTCH, Urine RBC (Auto) 22H, Urine Hyaline Casts (Auto) 4, Urine Bacteria (Auto) 1+H, Urine Squamous Epithelial Cells 0, Urine Mucus (Auto) SMALL, Urine Sperm (Auto) , Anion Gap 7L, Glomerular Filtration Rate 46.3, Lactic Acid Level 2.0, Calcium Level 8.7L, Total Bilirubin 0.3, Direct Bilirubin 0.1, Aspartate Amino Transf (AST/SGOT) 34, Alanine Aminotransferase (ALT/SGPT) 45, Alkaline Phosphatase 76, Total Protein 6.1L, Albumin 2.7L, Albumin/Globulin Ratio 0.8, Lipase 67L 08/30/20 12:49: Prothrombin Time 14.0, Prothromb Time International Ratio 1.06, Activated Partial Thromboplast Time 28.4 08/30/20 16:59: CBC/BMP Laboratory Tests 08/30/20 12:48 Microbiology Microbiology 08/30/20 Blood Culture, Received Pending 08/30/20 Blood Culture, Received Pending 08/30/20 Urine Culture, Received Pending Assessment/Plan 80 yo male with untreated Low lying Rectal cancer, BPH with obstructive uropathy with chronic indwelling sands, recurrent lower GIBs DNR/DNI presented from [facility] for abdominal distension and fever. He had a abdominal xray done this am at [facility] and was found to have bowel obstruction Vs ileus so was sent to the ED. Patient reports that yesterday night he had vomiting 2 to 3 times and then he felt better and went to sleep. He noticed a little abdominal distension yesterday but did not have any pain. He reports that he has liquid stool incontinence at night reports that he had flatus. Today he had a fever of 104 and he his abdomen was more distended. He denied any abdominal pain or any nausea or vomiting. Work up In the ED showed Large bowel obstruction. He also had a very dirty ua. He was admitted for bowel obstruction and possible catheter related UTI. Large Bowel obstruction. CT abd/pel showed distal left colonic obstruction due to annular enhancing rectal mass. There is nodularity in the perirectal fat. No definite adenopathy is seen. The colon is rather dilated with cecum dilated to a diameter of 12.9 cm. Left colonic diverticulosis is noted. Sands catheter in place. Diffuse Bladder wall thickening. No evidence of free intraperitoneal air. Surgical Consult. NPO, IVF, Cipro and flagyl. Dirty UA catheter related UTI vs colonization cipro. Rectal CA diagnosed in 07/2020 Untreated Treatment would require the patient to have chemo/RT first to reduce the tumor, then abdominoperineal resection with a permanent colostomy. 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 creatinine close to baseline. Unprovoked DVT - RLE - 2012 not on NOAC due to rectal ca HTN Bp controlled at this time. Simple liver cysts. Multiple Pulmonary nodules largest 6 mm some are spiculated Plan / VTE VTE Prophylaxis Ordered?: Yes MARI KEITH MD Aug 30, 2020 17:44
[2020-08-30] MEDS: D5W/0.9% SODIUM CHLORIDE 1,000 ML IV SCH (19:04)
[2020-08-30 20:54] VITALS: BP 159/86
--- NOTE | 2020-08-30 22:01 | CR ---
SURGICAL CONSULTATION REASON FOR CONSULTATION: Possible rectal obstruction. HISTORY OF PRESENT ILLNESS: The patient is an 80-year-old male that I had seen back in mid July when he presented with anemia and rectal bleeding. He underwent evaluation with a colonoscopy that revealed a large rectal cancer in the distal rectum. This was a circumferential tumor approximately 8 cm in length that extended down to about a cm above the dentate line. He was noted on his imaging workup to have a markedly distended bladder with bilateral hydroureter and hydronephrosis. A Vera catheter was placed with decompression of the bladder, and this had remained in place. I had spoken with the patient and his daughter at some length about the treatment for his large distal rectal tumor. If an attempt was to be made at a curative treatment then he should have preoperative chemoradiation followed by an abdominoperineal resection with an end colostomy. The patient should also have a urologic workup, as his bladder distention is likely related to his prostate. The patient declined any aggressive treatment, and instead was discharged with a Vera catheter in place to senior care care. He apparently has a Do Not Resuscitate order in place at the senior care. He apparently developed a fever with some abdominal distention. He apparently had an x-ray that suggested a bowel obstruction, and he was sent to the Emergency Department for evaluation. He had a CT scan in the Emergency Department that showed some fluid and air distention of the colon down to the known rectal mass. There were no signs of perforation. He was also found to have too numerous to count white cells in his urinalysis and the Hospitalist was admitting the patient for treatment of a urinary tract infection. I was consulted to evaluate the patient regarding a possible colonic obstruction. MEDICATIONS AT TIME OF ADMISSION: 1. Tylenol as needed for headache. 2. Rectal suppositories as needed for constipation. 3. Vitamin B-12 daily. 4. Milk of Magnesia as needed for constipation. 5. Remeron 15 mg p.o. q. h.s. 6. Fleet's enema daily for constipation as needed. PAST MEDICAL HISTORY: The patient's past medical history is significant for: 1. Hypertension. 2. He had a deep vein thrombosis of his right lower extremity back in 2012. 3. He has his known rectal cancer. 4. He has enlarged prostate with bladder outlet obstruction, now treated with a chronic indwelling Vera. PAST SURGICAL HISTORY: The patient's past surgical history is negative other than his recent colonoscopy. FAMILY HISTORY: The patient's family history is significant that his father had colorectal cancer. SOCIAL HISTORY: The patient is denying any smoking or alcohol use. He is currently living at the [facility]. He had been living out of town in his trailer home. He has a daughter who lives in [place]. REVIEW OF SYSTEMS: No chest pain or palpitations. He does report he has had a nagging cough for the last week or two. He denies any history of seizure or stroke. He has had some passage of flatus. He reports that approximately nightly he notes leakage of some liquid stool at night. He has not seen any significant bleeding recently. He has had no nausea or vomiting. He does have an indwelling Vera catheter. PHYSICAL EXAMINATION: GENERAL APPEARANCE: The patient is lying quietly on a stretcher in the Emergency Department. He is alert and oriented and recognized from his visit back in July. VITAL SIGNS: His most recent vital signs show a pulse of 72, respirations 0f 15, blood pressure of 144/70 and a room air oxygen saturation of 94%. SKIN: Warm and dry. HEART: Regular rhythm. LUNGS: Clear. ABDOMEN: Protuberant and distended. He does have bowel sounds present. The abdomen is soft and nontender to palpation. LABORATORY STUDIES: White count of 11, hemoglobin 10, hematocrit 31 and a platelet count of 226,000. Differential count shows 75% neutrophils, 16% lymphocytes and 9% monocytes. Chemistry profile shows a sodium of 140, potassium 3.8, chloride 109, CO2 of 24, BUN of 24, creatinine 1.5 and a glucose of 110. Liver function tests are normal. Total protein and albumin are both slightly low at 6.1 and 2.7 respectively. Urinalysis showed 2+ protein, 1+ blood, 3+ leukocyte esterase and too numerous to count white cells. There were 22 red cells noted. IMAGING DATA: CT scan of the abdomen and pelvis showed several small hepatic cysts. Vera catheter was noted in the bladder with thickened bladder fisher noted. Prostate was noted to be moderately enlarged. The mass in the rectum was noted with mural thickening as well as some irregularities of the rectal wall and a suggestion of some perirectal adenopathy. The colon was moderately dilated with air and fluid. There were still haustral folds noted, suggesting that it was not tensely distended. His hydronephrosis appeared significantly improved. IMPRESSION: The patient is an 80-year-old man with a known large rectal cancer which would require an abdominoperineal resection for treatment and this he has declined. He has at least some degree of obstruction, though clearly it is not complete at the level of his tumor. He is passing some flatus and has had some loose stool leaking at night. Development of a worsening obstruction is certainly not unexpected and is one of the things that I believe we spoke about back in July. RECOMMENDATIONS: I discussed with the patient that he clearly is not completely obstructed at this point. I discussed with him that he could continue to decline any surgical treatment and when he becomes completely obstructed, the treatment would then be analgesics and antiemetics and he would be unable to eat and would likely succumb within a relatively short period of time. If he elects not to do any surgical treatment, I advised him that it is possible that his colon would perforate due to obstruction and this would lead to peritonitis and also lead to his , though likely somewhat quicker. I did suggest that one option that would be involving surgery but less than a rectal resection, would be to consider a diverting colostomy. This could likely be done largely laparoscopically or through a small incision and would involve just mobilizing some part of his descending or sigmoid colon and bringing it out as a colostomy. This should decompress his colon adequately and allow him to continue to eat until such time as some other complication of his medical problems leads to his demise. I left him to think about this and hopefully he will also discuss this with his daughter. I will speak with him tomorrow to see if he has come to a conclusion whether to avoid all surgery and consider Hospice or whether to consider a diverting colostomy. DAHLIA
[2020-08-30] MEDS: PANTOPRAZOLE 40MG VIAL (C9113 PER 1) IV SCH (23:00)
[2020-08-31] MEDS: metroNIDAZOLE 500 MG in IV 1 EA IV SCH ×3 (01:56→18:07)
[2020-08-31] MEDS: CIPROFLOXACIN 400 MG in IV 1 EA IV SCH ×2 (04:58→18:06)
[2020-08-31 06:00] VITALS: BP 133/61
[2020-08-31 07:13] LABS: BASO % 0.3 % (0.0-1.0); EOS # 0.2 10^3/uL (0.0-0.5); EOS % 2.8 % (0.0-3.0); HEMATOCRIT 28.6 % (42.0-52.0); HEMOGLOBIN 9.4 g/dl (13.5-17.5); LYMPH # 1.2 10^3/uL (1.5-5.0); LYMPH % 14.8 % (24.0-44.0); MEAN CORPUSCULAR HEMOGLOBIN 29.6 pg (27.0-33.0); MEAN CORPUSCULAR HGB CONC 32.9 g/dl (32.0-36.5); MEAN CORPUSCULAR VOLUME 89.9 fl (80.0-96.0); MONO # 0.8 10^3/uL (0.0-0.8); MONO % 9.9 % (0.0-5.0); NEUTROPHILS # 5.6 10^3/uL (1.5-8.5); NEUTROPHILS % 71.6 % (36.0-66.0); PLATELET COUNT, AUTOMATED 206 10^3/uL (150-450); RED BLOOD COUNT 3.18 10^6/uL (4.30-6.10); WHITE BLOOD COUNT 7.8 10^3/uL (4.0-10.0)
[2020-08-31 07:33] LABS: CALCIUM LEVEL 8.2 MG/DL (8.8-10.2); CREATININE FOR GFR 1.26 MG/DL (0.70-1.30); GLOMERULAR FILTRATION RATE 58.3 (>35); POTASSIUM SERUM 3.5 MEQ/L (3.5-5.1)
[2020-08-31] MEDS: D5W/0.9% SODIUM CHLORIDE 1,000 ML IV SCH ×3 (09:02→21:22)
[2020-08-31 14:00] VITALS: BP 160/89
--- NOTE | 2020-08-31 15:54 | IPNPDOC ---
Subjective Date Seen The patient was seen on 08/31/20. Subjective Chief Complaint/HPI No fever over night. NO abdominal pain but remains distended. Did have some loose incontinent stools overnight and reports he is still passing flatus. Objective Physical Examination General Exam: Positive: Alert, Cooperative, No Acute Distress Eye Exam: Positive: PERRLA, Conjunctiva & lids normal, EOMI; Negative: Sclera icteric ENT Exam: Positive: Atraumatic, Mucous membr. moist/pink, Pharynx Normal Neck Exam: Positive: Supple; Negative: JVD, thyromegaly Chest Exam: Positive: Clear to auscultation, Normal air movement Heart Exam: Positive: Rate Normal, Regular Rhythm, Normal S1, Normal S2; Negative: Murmurs, Rubs Abdomen Exam: Positive: BS Hyperactive, Soft, Other (distended, tinkling sounds.); Negative: Tenderness Extremity Exam: Negative: Clubbing, Cyanosis, Edema Skin Exam: Positive: Nl turgor and temperature; Negative: Breakdown, Lesion Neuro Exam: Positive: Normal Speech, Strength at 5/5 X4 ext, Normal Tone Assessment /Plan Assessment 80 yo male with untreated Low lying Rectal cancer, BPH with obstructive uropathy with chronic indwelling sands, recurrent lower GIBs DNR/DNI presented from [facility] for abdominal distension and fever. He had a abdominal xray done this am at [facility] and was found to have bowel obstruction Vs ileus so was sent to the ED. Patient reports that yesterday night he had vomiting 2 to 3 times and then he felt better and went to sleep. He noticed a little abdominal distension yesterday but did not have any pain. He reports that he has liquid stool incontinence at night reports that he had flatus. Today he had a fever of 104 and he his abdomen was more distended. He denied any abdominal pain or any nausea or vomiting. Work up In the ED showed Large bowel obstruction. He also had a very dirty ua. He was admitted for bowel obstruction and possible catheter related UTI. Large Bowel obstruction. Most likely partial at this point CT abd/pel showed distal left colonic obstruction due to annular enhancing rectal mass. There is nodularity in the perirectal fat. No definite adenopathy is seen. The colon is rather dilated with cecum dilated to a diameter of 12.9 cm. Left colonic diverticulosis is noted. Sands catheter in place. Diffuse Bladder wall thickening. No evidence of free intraperitoneal air. Surgical Consult appreciated. Patient thinking about whether to undergo diverting colostomy or not. NPO, IVF, Cipro and flagyl. Dirty UA catheter related UTI vs colonization cultures pending. cipro. Rectal CA diagnosed in 07/2020 Untreated Treatment would require the patient to have chemo/RT first to reduce the tumor, then abdominoperineal resection with a permanent colostomy. He does not want to have any definite treatment for his cancer. 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 CKD 3 Cr 1.4 baseline. creatinine close to baseline. Unprovoked DVT - RLE - 2012 not on NOAC due to rectal ca HTN Bp controlled at this time. Simple liver cysts. Multiple Pulmonary nodules largest 6 mm some are spiculated Plan/VTE VTE Prophylaxis Ordered?: Yes VS, I&O, 24H, Fishbone Vital Signs/I&O Vital Signs Date Time Temp Pulse Resp B/P (MAP) Pulse Ox O2 Delivery O2 Flow Rate FiO2 08/30/20 20:54 98.8 77 18 159/86 (110) 94 Room Air l I&O- Last 24 Hours up to 6 AM 08/31/20 07:00 Intake Total 425 ml Output Total 750 ml Balance -325 ml Laboratory Data 24H LABS Laboratory Tests 2 08/30/20 12:48: Immature Granulocyte % (Auto) 0.5, Neutrophils (%) (Auto) 74.8H, Lymphocytes (%) (Auto) 15.5L, Monocytes (%) (Auto) 8.6H, Eosinophils (%) (Auto) 0.3, Basophils (%) (Auto) 0.3, Neutrophils # (Auto) 8.2, Lymphocytes # (Auto) 1.7, Monocytes # (Auto) 0.9H, Eosinophils # (Auto) 0.0, Basophils # (Auto) 0.0, Nucleated Red Blood Cells % (auto) 0.0, Urine Color YELLOW, Urine Appearance CLOUDYH, Urine pH 5.0, Urine Specific [place] 1.020, Urine Protein 2+H, Urine Glucose (UA) NEGATIVE, Urine Ketones NEGATIVE, Urine Blood 1+H, Urine Nitrite NEGATIVE, Urine Bilirubin NEGATIVE, Urine Urobilinogen 0.2, Urine Leukocyte Esterase 3+H, Urine WBC (Auto) TNTCH, Urine RBC (Auto) 22H, Urine Hyaline Casts (Auto) 4, Urine Bacteria (Auto) 1+H, Urine Squamous Epithelial Cells 0, Urine Mucus (Auto) SMALL, Urine Sperm (Auto) , Anion Gap 7L, Glomerular Filtration Rate 46.3, Lactic Acid Level 2.0, Calcium Level 8.7L, Total Bilirubin 0.3, Direct Bilirubin 0.1, Aspartate Amino Transf (AST/SGOT) 34, Alanine Aminotransferase (ALT/SGPT) 45, Alkaline Phosphatase 76, Total Protein 6.1L, Albumin 2.7L, Albumin/Globulin Ratio 0.8, Lipase 67L 08/30/20 12:49: Prothrombin Time 14.0, Prothromb Time International Ratio 1.06, Activated Partial Thromboplast Time 28.4 08/30/20 16:59: Coronavirus (COVID-19)(PCR) NEGATIVE CBC/BMP Laboratory Tests 08/30/20 12:48 Microbiology Microbiology 08/30/20 Blood Culture, Received Pending 08/30/20 Blood Culture, Received Pending 08/30/20 Urine Culture, Received Pending MARI KEITH MD Aug 31, 2020 06:45
[2020-08-31] MEDS: PANTOPRAZOLE 40MG VIAL (C9113 PER 1) IV SCH (21:22)
[2020-08-31 22:00] VITALS: BP 153/85
[2020-09-01] MEDS: metroNIDAZOLE 500 MG in IV 1 EA IV SCH ×2 (01:13→09:07)
[2020-09-01] MEDS: CIPROFLOXACIN 400 MG in IV 1 EA IV SCH (04:32)
[2020-09-01 06:00] VITALS: BP 151/84
[2020-09-01 06:25] LABS: BASO % 0.5 % (0.0-1.0); EOS # 0.2 10^3/uL (0.0-0.5); EOS % 3.8 % (0.0-3.0); HEMATOCRIT 27.7 % (42.0-52.0); HEMOGLOBIN 9.1 g/dl (13.5-17.5); LYMPH # 1.1 10^3/uL (1.5-5.0); LYMPH % 17.3 % (24.0-44.0); MEAN CORPUSCULAR HEMOGLOBIN 29.3 pg (27.0-33.0); MEAN CORPUSCULAR HGB CONC 32.9 g/dl (32.0-36.5); MEAN CORPUSCULAR VOLUME 89.1 fl (80.0-96.0); MONO # 0.8 10^3/uL (0.0-0.8); MONO % 12.3 % (0.0-5.0); NEUTROPHILS # 4.2 10^3/uL (1.5-8.5); NEUTROPHILS % 65.8 % (36.0-66.0); PLATELET COUNT, AUTOMATED 191 10^3/uL (150-450); RED BLOOD COUNT 3.11 10^6/uL (4.30-6.10); WHITE BLOOD COUNT 6.4 10^3/uL (4.0-10.0)
[2020-09-01 06:55] LABS: BLOOD UREA NITROGEN 11 MG/DL (7-18); CALCIUM LEVEL 7.9 MG/DL (8.8-10.2); CARBON DIOXIDE LEVEL 22 MEQ/L (21-32); CHLORIDE LEVEL 112 MEQ/L (98-107); GLOMERULAR FILTRATION RATE > 60.0 (>35); GLUCOSE, FASTING 122 MG/DL (70-100); POTASSIUM SERUM 3.2 MEQ/L (3.5-5.1); SODIUM LEVEL 140 MEQ/L (136-145)
[2020-09-01] MEDS ORDERED: KCL 40MEQ IN D5/NS 1000ML 1,000 ML IV SCH (08:00)
[2020-09-01 14:00] VITALS: BP 152/86
[2020-09-01] MEDS: metroNIDAZOLE (FLAGYL) 500MG TABLET PO SCH ×2 (15:34→22:26)
[2020-09-01] MEDS: CIPROFLOXACIN 500MG TABLET PO SCH (17:55)
--- NOTE | 2020-09-01 18:35 | IPNPDOC ---
Subjective Date Seen The patient was seen on 09/01/20. Subjective Chief Complaint/HPI No acute events overnight. Did have a loose incontinent bowel last night. Spoke with daughter Amy yesterday. She is going to speak with patient and go over the options as discussed by Dr Corcoran with patient. Objective Physical Examination General Exam: Positive: Alert, Cooperative, No Acute Distress Eye Exam: Positive: PERRLA, Conjunctiva & lids normal, EOMI; Negative: Sclera icteric ENT Exam: Positive: Atraumatic, Mucous membr. moist/pink, Pharynx Normal Neck Exam: Positive: Supple; Negative: JVD, thyromegaly Chest Exam: Positive: Clear to auscultation, Normal air movement Heart Exam: Positive: Rate Normal, Regular Rhythm, Normal S1, Normal S2; Negative: Murmurs, Rubs Abdomen Exam: Positive: BS Hypoactive, Soft, Other (distended, tinkling sounds.); Negative: Tenderness Extremity Exam: Negative: Clubbing, Cyanosis, Edema Skin Exam: Positive: Nl turgor and temperature; Negative: Breakdown, Lesion Neuro Exam: Positive: Normal Speech, Strength at 5/5 X4 ext, Normal Tone Assessment /Plan Assessment 80 yo male with untreated Low lying Rectal cancer, BPH with obstructive uropathy with chronic indwelling sands, recurrent lower GIBs DNR/DNI presented from [facility] for abdominal distension and fever. He had a abdominal xray done this am at [facility] and was found to have bowel obstruction Vs ileus so was sent to the ED. Patient reports that yesterday night he had vomiting 2 to 3 times and then he felt better and went to sleep. He noticed a little abdominal distension yesterday but did not have any pain. He reports that he has liquid stool inc ontinence at night reports that he had flatus. Today he had a fever of 104 and he his abdomen was more distended. He denied any abdominal pain or any nausea or vomiting. Work up In the ED showed Large bowel obstruction. He also had a very dirty ua. He was admitted for bowel obstruction and possible catheter related UTI. Large Bowel obstruction Most likely partial at this point CT abd/pel showed distal left colonic obstruction due to annular enhancing rectal mass. There is nodularity in the perirectal fat. No definite adenopathy is seen. The colon is rather dilated with cecum dilated to a diameter of 12.9 cm. Left colonic diverticulosis is noted. Sands catheter in place. Diffuse Bladder wall thickening. No evidence of free intraperitoneal air. Surgical Consult appreciated. Patient ultimately decided not to have colostomy . He does not want 2 bags hanging from him. will start on Full liquids. Will stop IVF, po antibiotics. Dirty UA catheter related UTI vs colonization cultures pending. Blood cultures negative till date. cipro. Hypokalemia replaced. Rectal CA diagnosed in 07/2020 Untreated Treatment would require the patient to have chemo/RT first to reduce the tumor, then abdominoperineal resection with a permanent colostomy. He does not want to have any definite treatment for his cancer. 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 CKD 3 Cr 1.4 baseline. creatinine close to baseline. Unprovoked DVT - RLE - 2012 not on NOAC due to rectal ca HTN Bp controlled at this time. Simple liver cysts. Multiple Pulmonary nodules largest 6 mm some are spiculated Plan/VTE VTE Prophylaxis Ordered?: Yes VS, I&O, 24H, Fishbone Vital Signs/I&O Vital Signs Date Time Temp Pulse Resp B/P (MAP) Pulse Ox O2 Delivery O2 Flow Rate FiO2 08/31/20 22:00 98.2 79 18 153/85 (107) 94 Room Air I&O- Last 24 Hours up to 6 AM 09/01/20 06:00 Intake Total 1800 ml Output Total 1200 ml Balance 600 ml Laboratory Data 24H LABS Laboratory Tests 2 09/01/20 06:03: Immature Granulocyte % (Auto) 0.3, Neutrophils (%) (Auto) 65.8, Lymphocytes (%) (Auto) 17.3L, Monocytes (%) (Auto) 12.3H, Eosinophils (%) (Auto) 3.8H, Basophils (%) (Auto) 0.5, Neutrophils # (Auto) 4.2, Lymphocytes # (Auto) 1.1L, Monocytes # (Auto) 0.8, Eosinophils # (Auto) 0.2, Basophils # (Auto) 0.0, Nucleated Red Blood Cells % (auto) 0.0, Anion Gap 6L, Glomerular Filtration Rate > 60.0, Calcium Level 7.9L CBC/BMP Laboratory Tests 09/01/20 06:03 Microbiology Microbiology 08/30/20 Blood Culture - Preliminary, Resulted No growth after 24 hours . All specim... 08/30/20 Blood Culture - Preliminary, Resulted No growth after 24 hours . All specim... 08/30/20 Urine Culture, Received Pending MARI KEITH MD Sep 01, 2020 07:38
[2020-09-01 22:00] VITALS: BP 143/68
[2020-09-01] MEDS: PANTOPRAZOLE 40MG VIAL (C9113 PER 1) IV SCH (22:26)
[2020-09-02 06:00] VITALS: BP 123/75
[2020-09-02] MEDS: metroNIDAZOLE (FLAGYL) 500MG TABLET PO SCH (06:23)
[2020-09-02] MEDS: CIPROFLOXACIN 500MG TABLET PO SCH (06:24)
[2020-09-02] MEDS ORDERED: CIPR-249 PO (09:48)
[2020-09-02] MEDS ORDERED: FLAG500T PO (09:48)
--- NOTE | 2020-09-02 11:27 | DS.PDOC ---
Discharge Summary General Date of Admission Aug 30, 2020 at 17:09 Date of Discharge 09/02/20 Discharge Summary PROCEDURES PERFORMED DURING STAY: [None]. DISCHARGE DIAGNOSES: Partial Large Bowel obstruction patient refused surgical intervention. Rectal Cancer untreated Catheter related UTi Hypokalemia BPH/Bladder Outlet obstruction/ h/o hydronephrosis has chronic sands Chronic blood loss anemia Unprovoked DVT - RLE - 2012 CKD stage 3 HTn Simple liver cysts Pulmonary nodules. COMPLICATIONS/CHIEF COMPLAINT: Bowel Obstruction,Uti. HOSPITAL COURSE: 80 yo male with untreated Low lying Rectal cancer, BPH with obstructive uropathy with chronic indwelling sands, recurrent lower GIBs DNR/DNI presented from [facility] for abdominal distension and fever. [facility] was found to have bowel obstruction Vs ileus so was sent to the ED. Patient reports that yesterday night he had vomiting 2 to 3 times and then he felt better and went to sleep. He noticed a little abdominal distension yesterday but did not have any pain. He reports that he has liquid stool incontinence at night reports that he had flatus. Today he had a fever of 104 and he his abdomen was more distended. He denied any abdominal pain or any nausea or vomiting. Work up In the ED showed Large bowel obstruction. He also had a very dirty ua. He was admitted for bowel obstruction and possible catheter related UTI. Large Bowel obstruction Most likely partial at this point, however any time can become complete obstruction. He refused diverting colostomy. He refused [employer]ATING [employer]ATOR/Hospice. I expect he is going to come back to the hospital again and again with features of obstruction. CT abd/pel showed distal left colonic obstruction due to annular enhancing rectal mass. There is nodularity in the perirectal fat. No definite adenopathy is seen. The colon is rather dilated with cecum dilated to a diameter of 12.9 cm. Left colonic diverticulosis is noted. Sands catheter in place. Diffuse Bladder wall thickening. No evidence of free intraperitoneal air. Surgical Consult appreciated. After several long discussion with Dr Corcoran and also me patient ultimately decided not to have colostomy . He does not want 2 bags hanging from him. Discussed about morphine and comfort care. He refused. will start on Full liquids. po antibiotics. Dirty UA catheter related UTI vs colonization cultures enterococcus Blood cultures negative till date. cipro. Hypokalemia replaced. Rectal CA diagnosed in 07/2020 Untreated Treatment would require the patient to have chemo/RT first to reduce the tumor, then abdominoperineal resection with a permanent colostomy. He does not want to have any definite treatment for his cancer. 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 CKD 3 Cr 1.4 baseline. creatinine close to baseline. Unprovoked DVT - RLE - 2012 not on NOAC due to rectal ca HTN Bp controlled at this time. Simple liver cysts. Multiple Pulmonary nodules largest 6 mm some are spiculated DISCHARGE MEDICATIONS: Please see below. ALLERGIES: Please see below. PHYSICAL EXAMINATION ON DISCHARGE: VITAL SIGNS: Please see below. General Exam: Positive: Alert, Cooperative, No Acute Distress Eye Exam: Positive: PERRLA, Conjunctiva & lids normal, EOMI; Negative: Sclera icteric ENT Exam: Positive: Atraumatic, Mucous membr. moist/pink, Pharynx Normal Neck Exam: Positive: Supple; Negative: JVD, thyromegaly Chest Exam: Positive: Clear to auscultation, Normal air movement Heart Exam: Positive: Rate Normal, Regular Rhythm, Normal S1, Normal S2; Negative: Murmurs, Rubs Abdomen Exam: Positive: BS Hypoactive, Soft, Other (distended, tinkling sounds.); Negative: Tenderness Extremity Exam: Negative: Clubbing, Cyanosis, Edema Skin Exam: Positive: Nl turgor and temperature; Negative: Breakdown, Lesion Neuro Exam: Positive: Normal Speech, Strength at 5/5 X4 ext, Normal Tone LABORATORY DATA: Please see below. ACTIVITY: [As tolerated]. DIET: Full liquid DISCHARGE PLAN: [facility] DISCHARGE CONDITION: [Stable]. TIME SPENT ON DISCHARGE: 35 minutes. Vital Signs/I&Os Vital Signs Date Time Temp Pulse Resp B/P (MAP) Pulse Ox O2 Delivery O2 Flow Rate FiO2 09/02/20 06:00 97.9 87 18 123/75 (91) 95 Room Air I&O- Last 24 Hours up to 6 AM 09/02/20 06:00 Intake Total 1780 ml Output Total 2250 ml Balance -470 ml Microbiology Microbiology 08/30/20 Blood Culture - Preliminary, Resulted No Growth after 48 hours. All Specime... 08/30/20 Blood Culture - Preliminary, Resulted No Growth after 48 hours. All Specime... 08/30/20 Urine Culture - Final, Complete Enterococcus Faecalis Discharge Medications Scheduled Ciprofloxacin HCl (Cipro) 500 Mg Tablet, 500 MG PO BID@,18 Cyanocobalamin (Vitamin B-12) (Vitamin B-12) 1,000 Mcg Tab.subl, 1,000 MCG SL DAILY, (Reported) Metronidazole (Flagyl) 500 Mg Tablet, 500 MG PO Q8H Mirtazapine (Remeron) 15 Mg Tablet, 15 MG PO QHS, (Reported) Scheduled PRN Acetaminophen (Tylenol Extra Strength) 500 Mg Tablet, 500 MG PO Q6H PRN for HEADACHE, (Reported) Bisacodyl (Bisacodyl) 10 Mg Supp.rect, 10 MG TN DAILY PRN for CONSTIPATION, (Reported) Milk Of Magnesia (Milk of Magnesia) 2,400 Mg/10 Ml Oral.susp, 10 ML PO DAILY PRN for CONSTIPATION, (Reported) Sodium Phosphate,[place]-Dibasic (Fleet Enema) 133 Ml Enema, 1 EFRAIN TN DAILY PRN for CONSTIPATION, (Reported) Allergies Coded Allergies: sulfamethoxazole (Verified Allergy, Unknown, 07/13/20) MARI KEITH MD Sep 02, 2020 11:27
== END 2020-09-02 11:52 | DRG 699 ==
LOC: M ED 12:26 → EDBD 12:26 → M ED INP 17:09 → M MSPAV 20:54
PROVIDERS: ADMIT Internal Medicine Nephrology; ATTEND Internal Medicine Nephrology
DX: T83.511A Infection and inflammatory reaction due to indwelling urethral catheter, initial encounter (principal); C20 Malignant neoplasm of rectum; K56.600 Partial intestinal obstruction, unspecified as to cause; N39.0 Urinary tract infection, site not specified; N18.30 Chronic kidney disease, stage 3 unspecified; I12.9 Hypertensive chronic kidney disease with stage 1 through stage 4 chronic kidney disease, or unspecified chronic kidney disease; N40.1 Benign prostatic hyperplasia with lower urinary tract symptoms; E87.6 Hypokalemia; D50.0 Iron deficiency anemia secondary to blood loss (chronic); R91.8 Other nonspecific abnormal finding of lung field; Z66 Do not resuscitate; Z79.899 Other long term (current) drug therapy; Z88.2 Allergy status to sulfonamides; Z87.891 Personal history of nicotine dependence; K76.89 Other specified diseases of liver; Y84.6 Urinary catheterization as the cause of abnormal reaction of the patient, or of later complication, without mention of misadventure at the time of the procedure

== ENCOUNTER → 2020-08-30 | Outpatient (REF) | payer MEDICARE ==
[~2020-08-30] MED LIST changes: +MIRT-62 PO; -REME15TA PO
--- NOTE | 2020-08-30 10:25 | REP ---
INDICATION: ABDOMINAL DYSTENSION COMPARISON: None. TECHNIQUE: Supine view of the abdomen and pelvis. FINDINGS: Marked air-filled dilated large bowel and presumed small bowel noted throughout the visualized abdomen and pelvis. Findings are nonspecific and differential diagnosis includes ileus as well as mechanical large bowel obstruction. A short catheter projects over the pelvis. Skeletal structures demonstrate age-related osteopenia and degenerative changes. IMPRESSION: Differential diagnosis includes ileus and obstruction. <Electronically signed by Landry Courtney > 08/30/20 [id number]
[2020-08-30 11:45] LABS: HEMATOCRIT 29.5 % (42.0-52.0); HEMOGLOBIN 9.6 g/dl (13.5-17.5); MEAN CORPUSCULAR HEMOGLOBIN 29.3 pg (27.0-33.0); MEAN CORPUSCULAR HGB CONC 32.5 g/dl (32.0-36.5); MEAN CORPUSCULAR VOLUME 89.9 fl (80.0-96.0); PLATELET COUNT, AUTOMATED 214 10^3/uL (150-450); RED BLOOD COUNT 3.28 10^6/uL (4.30-6.10); WHITE BLOOD COUNT 10.6 10^3/uL (4.0-10.0)
[2020-08-30 12:18] LABS: ALBUMIN 2.6 GM/DL (3.2-5.2); BILIRUBIN,TOTAL 0.4 MG/DL (0.2-1.0); CALCIUM LEVEL 8.9 MG/DL (8.8-10.2); CREATININE FOR GFR 1.55 MG/DL (0.70-1.30); GLOMERULAR FILTRATION RATE 45.9 (>35); POTASSIUM SERUM 3.5 MEQ/L (3.5-5.1)
== END ==
LOC: SKLAB3 09:51
PROVIDERS: ATTEND Nurse Practitioner Family
DX: R50.9 Fever, unspecified (principal); R14.0 Abdominal distension (gaseous)

== ENCOUNTER → 2020-09-03 | Outpatient (REF) | payer MEDICARE ==
[~2020-09-03] MED LIST changes: +BISA10SU27 PR; +CIPR-249 PO; +FLAG500T PO; +FLEEENE12 PR; +MIRT-62 PO; +MOM30SS PO; +VITA-113 SL
[2020-09-03 13:10] LABS: HEMATOCRIT 34.2 % (42.0-52.0); MEAN CORPUSCULAR HEMOGLOBIN 29.8 pg (27.0-33.0); MEAN CORPUSCULAR HGB CONC 32.2 g/dl (32.0-36.5); MEAN CORPUSCULAR VOLUME 92.7 fl (80.0-96.0); PLATELET COUNT, AUTOMATED 266 10^3/uL (150-450); RED BLOOD COUNT 3.69 10^6/uL (4.30-6.10); WHITE BLOOD COUNT 9.2 10^3/uL (4.0-10.0)
[2020-09-03 13:29] LABS: BILIRUBIN,TOTAL 0.3 MG/DL (0.2-1.0); CALCIUM LEVEL 9.3 MG/DL (8.8-10.2); CREATININE FOR GFR 1.51 MG/DL (0.70-1.30); GLOMERULAR FILTRATION RATE 47.3 (>35); TOTAL PROTEIN 6.8 GM/DL (6.4-8.2)
== END ==
LOC: SKLAB3 11:30
DX: R11.2 Nausea with vomiting, unspecified (principal); E87.6 Hypokalemia

== ENCOUNTER → 2020-09-08 | Outpatient (REF) | payer MEDICARE | LOC: SKLAB3 07:07 | DX: Z20.828 Contact with and (suspected) exposure to other viral communicable diseases (principal) ==

== ENCOUNTER → 2020-09-10 | Outpatient (REF) | payer MEDICARE ==
[~2020-09-10] MED LIST changes: +ZOFR4TAB16 PO
[2020-09-10 08:07] LABS: HEMATOCRIT 35.1 % (42.0-52.0); HEMOGLOBIN 11.3 g/dl (13.5-17.5); MEAN CORPUSCULAR HEMOGLOBIN 30.1 pg (27.0-33.0); MEAN CORPUSCULAR HGB CONC 32.2 g/dl (32.0-36.5); MEAN CORPUSCULAR VOLUME 93.4 fl (80.0-96.0); PLATELET COUNT, AUTOMATED 302 10^3/uL (150-450); RED BLOOD COUNT 3.76 10^6/uL (4.30-6.10); WHITE BLOOD COUNT 9.6 10^3/uL (4.0-10.0)
[2020-09-10 08:31] LABS: ALBUMIN 2.6 GM/DL (3.2-5.2); BILIRUBIN,TOTAL 0.3 MG/DL (0.2-1.0); CALCIUM LEVEL 8.6 MG/DL (8.8-10.2); CREATININE FOR GFR 1.41 MG/DL (0.70-1.30); GLOMERULAR FILTRATION RATE 51.2 (>35)
== END ==
LOC: SKLAB3 07:00
DX: E87.6 Hypokalemia (principal)

== ENCOUNTER → 2020-09-15 | Outpatient (REF) | payer MEDICARE ==
[~2020-09-15] MED LIST changes: +SUPRSOL2 PO
[2020-09-15 14:22] LABS: HEMATOCRIT 36.2 % (42.0-52.0); HEMOGLOBIN 11.6 g/dl (13.5-17.5); MEAN CORPUSCULAR HEMOGLOBIN 29.9 pg (27.0-33.0); MEAN CORPUSCULAR VOLUME 93.3 fl (80.0-96.0); PLATELET COUNT, AUTOMATED 290 10^3/uL (150-450); RED BLOOD COUNT 3.88 10^6/uL (4.30-6.10); WHITE BLOOD COUNT 9.4 10^3/uL (4.0-10.0)
[2020-09-15 14:49] LABS: CALCIUM LEVEL 9.7 MG/DL (8.8-10.2); CREATININE FOR GFR 2.08 MG/DL (0.70-1.30); GLOMERULAR FILTRATION RATE 32.7 (>35)
== END ==
LOC: SKLAB3 10:13
DX: Z20.828 Contact with and (suspected) exposure to other viral communicable diseases (principal)
CPT/HCPCS: 36415; 80048; 85027; U0003

== ENCOUNTER → 2020-09-16 | Outpatient (REF) | payer MEDICARE ==
[~2020-09-16] MED LIST changes: +IBUP40TA PO; +SENN-52 PO
[2020-09-16 12:18] LABS: HEMATOCRIT 31.4 % (42.0-52.0); HEMOGLOBIN 10.3 g/dl (13.5-17.5); MEAN CORPUSCULAR HGB CONC 32.8 g/dl (32.0-36.5); MEAN CORPUSCULAR VOLUME 91.5 fl (80.0-96.0); PLATELET COUNT, AUTOMATED 248 10^3/uL (150-450); RED BLOOD COUNT 3.43 10^6/uL (4.30-6.10); WHITE BLOOD COUNT 6.2 10^3/uL (4.0-10.0)
[2020-09-16 13:01] LABS: CALCIUM LEVEL 8.7 MG/DL (8.8-10.2); CREATININE FOR GFR 1.4 MG/DL (0.70-1.30); GLOMERULAR FILTRATION RATE 51.7 (>35)
== END ==
LOC: SKLAB3 07:00
DX: N17.9 Acute kidney failure, unspecified (principal)

== ENCOUNTER → 2020-09-17 | Outpatient (REF) | payer MEDICARE ==
[2020-09-17 08:29] LABS: HEMATOCRIT 30.6 % (42.0-52.0); HEMOGLOBIN 9.8 g/dl (13.5-17.5); MEAN CORPUSCULAR HEMOGLOBIN 29.5 pg (27.0-33.0); MEAN CORPUSCULAR VOLUME 92.2 fl (80.0-96.0); PLATELET COUNT, AUTOMATED 228 10^3/uL (150-450); RED BLOOD COUNT 3.32 10^6/uL (4.30-6.10)
[2020-09-17 08:43] LABS: CALCIUM LEVEL 8.5 MG/DL (8.8-10.2); CREATININE FOR GFR 1.28 MG/DL (0.70-1.30); GLOMERULAR FILTRATION RATE 57.3 (>35); POTASSIUM SERUM 3.4 MEQ/L (3.5-5.1)
== END ==
LOC: SKLAB3 07:00
DX: N17.9 Acute kidney failure, unspecified (principal); Z20.828 Contact with and (suspected) exposure to other viral communicable diseases
CPT/HCPCS: 80048; 85027; U0003

== ENCOUNTER → 2020-09-20 | Outpatient (REF) | payer MEDICARE ==
[2020-09-20 12:34] LABS: HEMATOCRIT 35.5 % (42.0-52.0); HEMOGLOBIN 11.4 g/dl (13.5-17.5); MEAN CORPUSCULAR HEMOGLOBIN 29.8 pg (27.0-33.0); MEAN CORPUSCULAR HGB CONC 32.1 g/dl (32.0-36.5); MEAN CORPUSCULAR VOLUME 92.9 fl (80.0-96.0); PLATELET COUNT, AUTOMATED 282 10^3/uL (150-450); RED BLOOD COUNT 3.82 10^6/uL (4.30-6.10); WHITE BLOOD COUNT 6.9 10^3/uL (4.0-10.0)
[2020-09-20 13:01] LABS: CALCIUM LEVEL 9.5 MG/DL (8.8-10.2); CREATININE FOR GFR 1.34 MG/DL (0.70-1.30); GLOMERULAR FILTRATION RATE 54.3 (>35); POTASSIUM SERUM 3.8 MEQ/L (3.5-5.1)
== END ==
LOC: SKLAB3 10:26
DX: E87.6 Hypokalemia (principal)

== ENCOUNTER → 2020-09-21 | Outpatient (REF) | payer MEDICARE ==
[2020-09-21 11:30] LABS: HEMATOCRIT 34.5 % (42.0-52.0); HEMOGLOBIN 11.1 g/dl (13.5-17.5); MEAN CORPUSCULAR HEMOGLOBIN 30.2 pg (27.0-33.0); MEAN CORPUSCULAR HGB CONC 32.2 g/dl (32.0-36.5); PLATELET COUNT, AUTOMATED 276 10^3/uL (150-450); RED BLOOD COUNT 3.67 10^6/uL (4.30-6.10); WHITE BLOOD COUNT 6.7 10^3/uL (4.0-10.0)
[2020-09-21 12:06] LABS: CALCIUM LEVEL 9.3 MG/DL (8.8-10.2); CREATININE FOR GFR 1.34 MG/DL (0.70-1.30); GLOMERULAR FILTRATION RATE 54.3 (>35); POTASSIUM SERUM 3.5 MEQ/L (3.5-5.1)
== END ==
LOC: SKLAB3 13:56
DX: N17.9 Acute kidney failure, unspecified (principal)

== ENCOUNTER 2020-09-22 08:23 | Inpatient (IN) | payer MEDICARE ==
--- NOTE | 2020-09-20 12:32 | CR ---
CONSULTATION DATE: 09/22/2020 REQUESTING PHYSICIAN: Dr. Corcoran REASON FOR CONSULTATION: [id number]-old white male with history of known rectal cancer. He has an obstructing mass in his rectum. He has had at least two hospitalizations for symptoms related to obstruction but has previously refused surgery. During one of his hospitalizations, he also required transfusions for rectal bleeding and blood loss anemia. His most recent hematocrit is in the mid 30s. There is no history of known cardiopulmonary disease. He has had a CT scan of the chest which does demonstrate multiple pulmonary nodules. Patient has been reluctant to pursue this as he has been reluctant to have surgery for his rectal mass but he now realizes that this is an impedance to him maintaining a level of comfort. Related to the lower bowel obstruction, he also has a history of urinary obstruction with bilateral hydronephrosis which decompressed with a Vera catheter. He currently does have a Vera catheter. His most recent electrocardiogram was during our recent hospitalization, which looks normal. Again, he denies a history of coronary artery disease. SOCIAL HISTORY: He was living alone. He does have a daughter, which looks after him. He stopped smoking in 2013. ALLERGIES: Apparently is intolerant to AMLODIPINE and I am uncertain what that is. FAMILY HISTORY: Apparently, grandfather had colon cancer. There is some diabetes in his family as well. PAST MEDICAL HISTORY: He does have a history of: 1. Recently diagnosed rectal cancer, urinary obstruction requiring Vera catheter. 2. Hypertension. 3. Pulmonary nodules as noted. 4. Elevated PSA. 5. Remote history of unprovoked deep vein thrombosis (DVT) in 2012. 6. B12 deficiency. 7. Small vessel cerebrovascular disease. 8. Blood loss anemia requiring transfusion. 9. Chronic renal failure, stage III. 10. Gastric polyps. 11. Adenomyomatosis of the gallbladder. 12. Kidney and liver cyst. 13. Subclinical hypothyroidism with mildly elevated TSH and normal free T4. REVIEW OF SYSTEMS: Noteworthy mainly for fecal incontinence, intermittent GI obstructive symptoms. He does have a chronic Vera for urinary obstruction. Currently denies any cardiopulmonary symptoms. He was markedly deconditioned during his first internment at [facility] but is now independent in his room and he has done better in that regard. PHYSICAL EXAMINATION: His vital signs are stable. He has been normotensive. HEENT: Unremarkable except for poor dentition. He has several teeth absent. No carotid bruits. No jugular venous distension (JVD). HEART: Regular; no murmurs. CHEST: Clear. ABDOMEN: Slightly protuberant and tympanitic. Currently has a daily bowel movement. EXTREMITIES: Without any edema. He does have deformities of his index finger fingernails. NEUROLOGIC: Grossly intact. IMPRESSION/PLAN: 1. Obstructing rectal cancer, scheduled for surgery on same. Patient has no cardiac history. He is a remote smoker and currently with no pulmonary symptoms. Recent CT of the chest as described. 2. Improved anemia; last hematocrit was in the mid 30s. 3. Chronic renal failure, stage III. 4. Obstructive uropathy. He does have a Vera catheter. 5. Small vessel cerebrovascular disease, asymptomatic. 6. Remote deep vein thrombosis (DVT) which was unprovoked many years ago. Currently off anticoagulation. 7. Hypertension, currently normotensive without medications. 8. Subclinical hypothyroid. 9. B12 deficiency; continues on B12. 10. History of nonobstructive renal calculi. 11. Adenomyomatosis of the gallbladder. 12. Kidney and liver cyst. 13. Multiple nodules on pulmonary CT of uncertain etiology. Patient, at this time, does not want this pursued. 14. Small thoracic aneurysm on CT of the chest as well. 15. Elevated PSA of uncertain etiology. I do not think patient would want this pursued either. Patient is currently medically optimized.
[2020-09-22] VITALS (8 sets, daily range): BP systolic 117–155; BP diastolic 70–81
[~2020-09-22] VITALS: Ht 175.3 cm; Wt 56.2 kg
[~2020-09-22 08:23] MED LIST changes: -IBUP40TA PO; +LACTATED RINGER'S 1000 ML IV ONE; +LR 1,000 ML IV ONE; +PIPERACILLIN/TAZOBACTAM SOD 3.375 GM in D5W MINI-BAG PLUS 50 ML IV ONE; -SENN-52 PO; -SUPRSOL2 PO
[2020-09-22] MEDS ORDERED: SUPRSOL2 PO (08:58)
[2020-09-22] MEDS ORDERED: FLAG500T PO (08:58)
--- NOTE | 2020-09-22 09:10 | HPE ---
HISTORY AND PHYSICAL DATE: 09/22/2020 ADMITTING DIAGNOSIS: Rectal cancer with colorectal obstruction. HISTORY OF PRESENT ILLNESS: The patient is an 80-year-old man who had been evaluated for anemia and rectal bleeding with a colonoscopy that revealed a large rectal cancer in the distal rectum. This was described as a circumferential tumor approximately 8 cm in length that extended down to about 1 cm above the dentate line. He was noted on his imaging work-up to have a markedly distended bladder with bilateral hydroureter and hydronephrosis and a Vera catheter was placed with decompression. The patient had declined any treatment for his rectal cancer. The Vera catheter was left in place with resolution of his hydronephrosis and stabilization of his renal function. He was discharged to a nursing facility as he was not able to fully care for himself. He has continued to have problems with abdominal distention and some crampy abdominal pain. He was readmitted back to [facility] in late August and after further discussion elected to undergo a diverting colostomy. He was counseled that this would not be of any benefit in the treatment of his cancer, but would relieve the colonic obstruction so that he might be somewhat more comfortable with less abdominal distention and cramping. In the long-term he has not been eating well and this may be unrelated to the obstruction. He is now admitted to undergo laparoscopy and a colostomy for decompression. MEDICATIONS AT THE TIME OF ADMISSION: Include: 1. Tylenol as needed for mild pain. 2. Vitamin B12. 3. Milk of Magnesia. 4. Remeron 15 mg by mouth daily at bedtime. 5. Zofran as needed. ALLERGIES: Patient reports an allergy to SULFAMETHOXAZOLE. PAST SURGICAL HISTORY: Completely negative other than his recent colonoscopy at which his obstructing cancer was diagnosed. PAST MEDICAL HISTORY: 1. Significant for hypertension. 1. He had a deep venous thrombosis of his right lower extremity in 2012. 2. He has his known rectal cancer with obstruction. 3. He has an enlarged prostate with bladder outlet obstruction now treated with a chronic indwelling Vera catheter. FAMILY HISTORY: Significant for his father having had colorectal cancer. SOCIAL HISTORY: Patient denies any tobacco use or alcohol use. He had been living alone in his [facility] home, but has recently been living at the [facility]. He has a daughter living in [place]. REVIEW OF SYSTEMS: No history of chest pain or palpitations. He has had an occasional cough. There is no history of seizure or stroke. He has had some recent persistent abdominal distention with passage of some loose stool. He has not had any nausea or vomiting recently. He has an indwelling Vera catheter. PHYSICAL EXAMINATION: A somewhat frail appearing older man not in acute distress currently. Skin: Warm and dry. HEENT: Sclerae are anicteric. Heart: Regular rhythm. Lungs: Clear to auscultation. Abdomen: Protuberant and distended. He has some bowel sounds present. The abdomen is full, but soft and nontender to palpation. Rectal: Exam deferred. Extremities: Thin with peripheral pulses present. IMPRESSIONS: 1. Rectal cancer with rectal obstruction. 2. Hypertension. 3. Bladder outlet obstruction treated with chronic Vera catheter. 4. Distant history of deep venous thrombosis. PLAN: Patient is being admitted to undergo a laparoscopy with end-colostomy. He was not able to perform a full mechanical and antibiotic bowel preparation. He was provided a prescription for some oral neomycin and Flagyl the day before surgery. He will receive a dose of antibiotics pre-operatively. Patient has been counseled that this procedure is only to alleviate the rectal obstruction. To the extent that this improves his comfort and possible ability to eat this may be of some benefit. He has remained convinced that he does not want to have any more aggressive care for his rectal cancer to include surgery. DAHLIA
[2020-09-22] MEDS ORDERED: BUPIVACAINE HCL 0.25% 30ML VIAL As Ordered ONE (10:17)
[2020-09-22] MEDS ORDERED: ROCURONIUM BROMIDE 50 MG/5 ML VIAL As Ordered ONE ×2 (11:39→11:41)
[2020-09-22] MEDS ORDERED: ONDANSETRON 4MG/2ML VIAL As Ordered ONE (11:39)
[2020-09-22] MEDS ORDERED: HYDROmorphone HCL 2 MG/ML 1ML VIAL (J1170) As Ordered ONE (11:39)
[2020-09-22] MEDS ORDERED: LIDOCAINE 2% 100MG/5ML SDV (FOR ANES.) As Ordered ONE (11:39)
[2020-09-22] MEDS ORDERED: propofoL 200 MG/20 ML VIAL As Ordered ONE (11:39)
[2020-09-22] MEDS ORDERED: fentaNYL 100 MCG/2 ML INJECTION (J3010) As Ordered ONE (11:39)
[2020-09-22] MEDS ORDERED: dexameTHASONE 4 MG/ML 1ML VIAL (J1100 PER 1MG) As Ordered ONE (11:39)
[2020-09-22] MEDS ORDERED: ACETAMINOPHEN 1000MG 100ML IV BTL (OFIRMEV) (J0131 PER 10MG) As Ordered ONE (11:39)
[2020-09-22] MEDS ORDERED: ESMOLOL INJ 100MG/10ML VIAL As Ordered ONE (11:52)
[2020-09-22] MEDS ORDERED: LABETALOL 100MG/20ML VIAL As Ordered ONE (12:11)
[2020-09-22] MEDS ORDERED: PHENYLephrine HCL 500 MCG/5 ML (100MCG/ML) SYRINGE (J2370) As Ordered ONE (12:58)
[2020-09-22] MEDS ORDERED: ePHEDrine SULFATE 25 MG/5 ML(5MG/ML) SYRINGE As Ordered ONE (12:58)
[2020-09-22] MEDS ORDERED: SUGAMMADEX SODIUM 500 MG/5 ML VIAL (BRIDION) As Ordered ONE (13:00)
[2020-09-22] MEDS ORDERED: D5W/LR 1,000 ML IV SCH (13:36)
[2020-09-22] MEDS ORDERED: MORPHINE 2 MG/ML 1ML VIAL (J2270) IV PRN (13:45)
[2020-09-22] MEDS ORDERED: ONDANSETRON 4MG/2ML VIAL IV PRN ×2 (13:45→14:00)
[2020-09-22] MEDS ORDERED: KETOROLAC 30 MG/ML 1ML VIAL IV PRN (13:45)
[2020-09-22] MEDS ORDERED: ACETAMINOPHEN TAB 650MG DOSE (2X325MG) PO PRN (13:45)
[2020-09-22] MEDS ORDERED: LR 1,000 ML IV SCH (14:00)
[2020-09-22] MEDS ORDERED: oxyCODONE 5MG TAB PO PRN (14:00)
[2020-09-22] MEDS ORDERED: MEPERIDINE INJ 25 MG/ML VIAL (J2175) IV PRN (14:00)
[2020-09-22] MEDS ORDERED: fentaNYL 100 MCG/2 ML INJECTION (J3010) IV PRN (14:00)
[2020-09-22] MEDS ORDERED: METOCLOPRAMIDE INJ 10MG/2ML VIAL (J2765 PER 1) IV PRN (14:00)
[2020-09-22] MEDS: PIPERACILLIN/TAZOBACTAM SOD 3.375 GM in D5W MINI-BAG PLUS 50 ML IV SCH (18:57)
[2020-09-22] MEDS: MIRTAZAPINE 15 MG TAB PO SCH (21:03)
[2020-09-23] MEDS: PIPERACILLIN/TAZOBACTAM SOD 3.375 GM in D5W MINI-BAG PLUS 50 ML IV SCH (00:38)
[2020-09-23 02:00] VITALS: BP 128/75
[2020-09-23 06:00] VITALS: BP 126/66
[2020-09-23 06:19] LABS: BASO % 0.2 % (0.0-1.0); EOS % 0.2 % (0.0-3.0); HEMATOCRIT 33.7 % (42.0-52.0); HEMOGLOBIN 10.5 g/dl (13.5-17.5); LYMPH # 1.2 10^3/uL (1.5-5.0); LYMPH % 13.5 % (24.0-44.0); MEAN CORPUSCULAR HEMOGLOBIN 29.1 pg (27.0-33.0); MEAN CORPUSCULAR HGB CONC 31.2 g/dl (32.0-36.5); MEAN CORPUSCULAR VOLUME 93.4 fl (80.0-96.0); MONO # 0.9 10^3/uL (0.0-0.8); MONO % 9.7 % (0.0-5.0); NEUTROPHILS # 6.8 10^3/uL (1.5-8.5); NEUTROPHILS % 75.4 % (36.0-66.0); PLATELET COUNT, AUTOMATED 272 10^3/uL (150-450); RED BLOOD COUNT 3.61 10^6/uL (4.30-6.10)
[2020-09-23 06:38] LABS: CALCIUM LEVEL 8.3 MG/DL (8.8-10.2); CREATININE FOR GFR 1.42 MG/DL (0.70-1.30); GLOMERULAR FILTRATION RATE 50.8 (>35); POTASSIUM SERUM 3.7 MEQ/L (3.5-5.1)
[2020-09-23] MEDS: ENOXAPARIN 40MG/0.4ML SYRINGE (J1650 PER 10MG) SC SCH (08:21)
[2020-09-23] MEDS: SENOKOT S TAB PO SCH ×2 (08:51→20:30)
[2020-09-23] MEDS ORDERED: IBUPROFEN 400 MG TAB PO PRN (09:00)
[2020-09-23] MEDS ORDERED: NORCO, ANEXSIA 5/325MG TABLET (HYDROcodone/ACETAMINOPHEN) PO PRN (09:00)
[2020-09-23 10:00] VITALS: BP 122/73
[2020-09-23 14:00] VITALS: BP 102/69
--- NOTE | 2020-09-23 17:40 | RO ---
OPERATIVE NOTE DATE OF OPERATION: 09/22/2020 PREOPERATIVE DIAGNOSIS: Rectal cancer with obstruction. POSTOPERATIVE DIAGNOSIS: Rectal cancer with obstruction. PROCEDURE PERFORMED: Laparoscopy with end sigmoid colostomy. SURGEON: Wellington Corcoran MD ANESTHESIA: General. INDICATIONS FOR THE PROCEDURE: The patient is an 80-year-old man who was diagnosed with a low-lying large rectal cancer. This has led to obstruction with marked abdominal distention. The patient is now for a diverting colostomy and will have a laparoscopic approach to creation of an end sigmoid colostomy. OPERATIVE PROCEDURE: The patient was brought to the operating room and placed on the table in a supine position. He was placed under general endotracheal anesthesia. The patient's abdomen was prepped and draped in a sterile fashion. The patient has an indwelling Vera which was left in place. 1/4% Marcaine was infiltrated at the trocar sites as needed. A short supraumbilical midline incision was made which was deepened through the peritoneum. Stay sutures were placed and a 12 mm Ariel cannula was inserted and the abdomen inflated with carbon dioxide gas. Initial examination showed markedly dilated loops of small and large bowel filling the abdomen. There was adequate free space to proceed laparoscopically. A 5 mm port was placed in the right lower quadrant about midway between the umbilicus and the anterior-superior iliac spine and a 12 mm port was placed low in the right lower quadrant. Graspers were inserted. The sigmoid colon was identified in the left lower quadrant. This was fairly redundant, making a big loop to the right and then continuing into the pelvis. A point was selected for division of the sigmoid colon about at the midpoint of the sigmoid. Grasping the colon was somewhat difficult because of the distention but it was possible to grasp the colon and elevate this slightly. An [place] stapler with a green load was placed across the selected point for division, closed and fired. A second and subsequently third load of the stapler were placed to complete the transection. The third load carried across the edge of the colon and partly into the mesocolon. The harmonic scalpel was then used to divide the mesocolon down toward its base. Some lateral attachments of the sigmoid colon were divided. The dissection then proceeded superiorly, freeing the mesocolon at its base using the harmonic scalpel. Dissection proceeded until there was adequate length to easily bring the end of the colon up to the anterior abdominal wall in the left upper quadrant without tension. The bowel appeared to be well vascularized after mobilization. Final inspection laparoscopically showed no evidence of bleeding. The minimal blood from the transection of the colon was irrigated and removed. The distal end of the colon appeared well vascularized and this was just left in place. The site selected for the colostomy was approximately 3-5 cm above the level of the umbilicus and approximately 7 cm to the left of the midline. A clamp was placed on the end of the colon and the abdomen was then deflated. A small disc of skin was removed at the site for the colostomy. The subcutaneous tissues which were quite thin were divided with cautery. The anterior fascia was opened obliquely using the cautery. The muscle was spread and the posterior fascia was elevated and opened longitudinally using the cautery. The end of the colon was delivered through this opening without any difficulty. The end of the colon was clearly viable. The patient's abdomen was quite thin and I placed several sutures of 3-0 Vicryl, suturing the posterior fascia and peritoneum to the edge of the colon. These were placed primarily to prevent retraction of the colostomy. The remaining trocars were then removed. The supraumbilical site was closed at the fascial level with interrupted simple sutures of 2-0 Vicryl. The posterior fascia and peritoneum in the right lower quadrant 12 mm site was readily identified because of his thin abdominal wall and this was closed with interrupted sutures of 2-0 Vicryl. The muscle fascia was then closed also with sutures of 2-0 Vicryl. The three trocar site skin incisions were then closed with buried 4-0 Vicryl. Dermabond was applied to these three incisions and I then proceeded with the maturation of the colostomy. Approximately 3/4 of the staple line at the end of the bowel was excised. Because of the distention of the bowel, this gave adequate lumen to proceed with the colostomy. Four corner sutures of 3-0 Vicryl were placed, taking a bite of the dermis, the wall of the colon and the end of the colon to jorje the colon very nicely. Multiple additional 3-0 Vicryl sutures were placed, tacking the end of the colon to the surrounding skin. The ostomy was pink and viable. Mastisol was applied to the skin and an ostomy appliance was placed without difficulty. The patient tolerated the procedure well without apparent complication. He was awakened in the operating room, extubated and moved to the recovery room in stable condition. DAHLIA
--- NOTE | 2020-09-23 19:39 | ECGEPIP ---
[facility] Test Date: 2020-09-22 Pat Name: MANJIT BLAKE Department: Room: [place] [address] Gender: Male Archeology Professor: : 1940 Requested By: Carlos Lake Order Number: [id number] Reading MD: Alex Kinsey Measurements Intervals [place] Rate: 80 P: 27 VT: 128 QRS: -4 QRSD: 89 T: 27 QT: 354 QTc: 410 Interpretive Statements SINUS RHYTHM Low voltage in limb leads Inferior Q waves of uncertain significance Similar to tracing done 07-29-20 Electronically Signed on 09-23-2020 19:39:11 EST by Alex Kinsey
[2020-09-23] MEDS: MIRTAZAPINE 15 MG TAB PO SCH (20:30)
--- NOTE | 2020-09-23 21:29 | IPN ---
PROGRESS NOTE DATE: 09/23/2020 SUBJECTIVE: The patient is now postop day number one from a laparoscopic sigmoid colostomy creation for an obstructing rectal cancer. He had a large amount of stool and air through his ostomy yesterday starting almost immediately after the procedure. VITAL SIGNS: The patient is afebrile and has been since surgery. His pulse is in the 70's with a normal blood pressure. INTAKE AND OUTPUT: He has had an excellent urine output. He had 675 mL of stool recorded yesterday. He has started taking some clear liquids today and has tolerated them well. PHYSICAL EXAMINATION: GENERAL APPEARANCE: The patient is awake and appears quite comfortable. He has had no pain medications since surgery other than a dose of Ibuprofen this morning. HEART: Regular rhythm. LUNGS: Clear though the sounds are somewhat distant. ABDOMEN: Clearly less distended than it was yesterday and is soft and nontender. The ostomy is functioning well with air and liquid stool in the ostomy appliance. There is no unexpected tenderness. LABORATORY STUDIES: The patient has a white count of 9, hemoglobin 10, hematocrit 34 and a platelet count of 272,000. His chemistry profile shows normal electrolytes with a BUN of 24, creatinine 1.4, and a glucose of 175. IMPRESSION: The patient is doing extremely well postop day one from his colostomy for obstruction. He has had a large amount of stool and air through the colostomy with significant decompression of the abdomen. He is tolerating some clear liquids. PLAN: I advised the patient that I will advance him to a regular diet and he can eat whatever he chooses. I have started him on some Senokot-S to stimulate his GI tract somewhat as it has been quite distended for at least a month. If he is doing well tomorrow, I see no reason he could not be transferred back to the [facility]. DAHLIA
[2020-09-23 22:00] VITALS: BP 124/63
[2020-09-24 02:00] VITALS: BP 118/76
[2020-09-24 06:00] VITALS: BP 113/57
[2020-09-24 06:25] LABS: CALCIUM LEVEL 8.6 MG/DL (8.8-10.2); CREATININE FOR GFR 1.62 MG/DL (0.70-1.30); GLOMERULAR FILTRATION RATE 43.6 (>35)
[2020-09-24] MEDS: SENOKOT S TAB PO SCH ×2 (10:28→21:01)
[2020-09-24] MEDS: POTASSIUM CHLORIDE 10 MEQ SR TABLET PO SCH ×3 (10:28→18:18)
[2020-09-24] MEDS: ENOXAPARIN 40MG/0.4ML SYRINGE (J1650 PER 10MG) SC SCH (10:29)
[2020-09-24 14:00] VITALS: BP 105/65
[2020-09-24] MEDS: MIRTAZAPINE 15 MG TAB PO SCH (21:01)
[2020-09-25 06:00] VITALS: BP 153/84
[2020-09-25 07:25] LABS: CREATININE FOR GFR 1.43 MG/DL (0.70-1.30); GLOMERULAR FILTRATION RATE 50.4 (>35); POTASSIUM SERUM 3.2 MEQ/L (3.5-5.1)
[2020-09-25] MEDS: SENOKOT S TAB PO SCH ×2 (08:54→21:53)
[2020-09-25] MEDS: ENOXAPARIN 40MG/0.4ML SYRINGE (J1650 PER 10MG) SC SCH (08:54)
[2020-09-25] MEDS: MIRTAZAPINE 15 MG TAB PO SCH (21:53)
[2020-09-26 06:00] VITALS: BP 145/83
[2020-09-26] MEDS: ENOXAPARIN 40MG/0.4ML SYRINGE (J1650 PER 10MG) SC SCH (10:47)
[2020-09-26] MEDS: SENOKOT S TAB PO SCH ×2 (10:47→21:32)
[2020-09-26 14:00] VITALS: BP 141/81
[2020-09-26] MEDS: MIRTAZAPINE 15 MG TAB PO SCH (21:32)
[2020-09-27] MEDS: ENOXAPARIN 40MG/0.4ML SYRINGE (J1650 PER 10MG) SC SCH (09:10)
[2020-09-27] MEDS: SENOKOT S TAB PO SCH (09:10)
[2020-09-27] MEDS ORDERED: SENN-52 PO (11:33)
[2020-09-27] MEDS ORDERED: IBUP40TA PO (11:33)
== END 2020-09-27 14:04 | DRG 331 ==
LOC: M OR 08:23 → M MSPAV 15:44
PROVIDERS: ADMIT Surgery; ATTEND Surgery
PROC: 0D1N4Z4 Bypass Sigmoid Colon to Cutaneous, Percutaneous Endoscopic Approach (ICD-10-PCS; principal; 2020-09-22 10:00)
DX: C20 Malignant neoplasm of rectum (principal); I12.9 Hypertensive chronic kidney disease with stage 1 through stage 4 chronic kidney disease, or unspecified chronic kidney disease; N18.30 Chronic kidney disease, stage 3 unspecified; Z88.2 Allergy status to sulfonamides; Z88.8 Allergy status to other drugs, medicaments and biological substances; R91.8 Other nonspecific abnormal finding of lung field; Z87.891 Personal history of nicotine dependence; E53.8 Deficiency of other specified B group vitamins; I71.2 Thoracic aortic aneurysm, without rupture; N28.1 Cyst of kidney, acquired; K76.89 Other specified diseases of liver; E03.9 Hypothyroidism, unspecified

== ENCOUNTER → 2020-09-22 | Outpatient (REF) | payer MEDICARE | LOC: SKLAB3 07:00 | DX: Z53.9 Procedure and treatment not carried out, unspecified reason (principal) ==

== ENCOUNTER → 2020-09-28 | Outpatient (REF) ==
[~2020-09-28] MED LIST changes: +IBUP40TA PO; -LACTATED RINGER'S 1000 ML IV ONE; -LR 1,000 ML IV ONE; -PIPERACILLIN/TAZOBACTAM SOD 3.375 GM in D5W MINI-BAG PLUS 50 ML IV ONE; +SENN-52 PO; +SUPRSOL2 PO
[2020-09-28 10:04] LABS: HEMATOCRIT 35.5 % (42.0-52.0); HEMOGLOBIN 11.4 g/dl (13.5-17.5); MEAN CORPUSCULAR HEMOGLOBIN 30.5 pg (27.0-33.0); MEAN CORPUSCULAR HGB CONC 32.1 g/dl (32.0-36.5); MEAN CORPUSCULAR VOLUME 94.9 fl (80.0-96.0); PLATELET COUNT, AUTOMATED 331 10^3/uL (150-450); RED BLOOD COUNT 3.74 10^6/uL (4.30-6.10); WHITE BLOOD COUNT 9.7 10^3/uL (4.0-10.0)
[2020-09-28 11:01] LABS: BLOOD UREA NITROGEN 16 MG/DL (7-18); CALCIUM LEVEL 8.8 MG/DL (8.8-10.2); CARBON DIOXIDE LEVEL 27 MEQ/L (21-32); CHLORIDE LEVEL 110 MEQ/L (98-107); CREATININE FOR GFR 1.18 MG/DL (0.70-1.30); GLOMERULAR FILTRATION RATE > 60.0 (>35); GLUCOSE, FASTING 90 MG/DL (70-100); POTASSIUM SERUM 2.6 MEQ/L (3.5-5.1); SODIUM LEVEL 144 MEQ/L (136-145)
== END ==
LOC: SKLAB5 07:47
DX: I25.10 Atherosclerotic heart disease of native coronary artery without angina pectoris (principal); R60.9 Edema, unspecified

== ENCOUNTER → 2020-09-29 | Outpatient (REF) | payer MEDICARE ==
[~2020-09-29] MED LIST changes: +CIPR250T3 PO
== END ==
LOC: SKLAB5 06:57
DX: Z20.828 Contact with and (suspected) exposure to other viral communicable diseases (principal)

== ENCOUNTER → 2020-10-01 | Outpatient (REF) | payer MEDICARE ==
[~2020-10-01] MED LIST changes: -CIPR250T3 PO
[2020-10-01 16:19] LABS: HEMATOCRIT 29.3 % (42.0-52.0); HEMOGLOBIN 9.3 g/dl (13.5-17.5); MEAN CORPUSCULAR HEMOGLOBIN 29.7 pg (27.0-33.0); MEAN CORPUSCULAR HGB CONC 31.7 g/dl (32.0-36.5); MEAN CORPUSCULAR VOLUME 93.6 fl (80.0-96.0); PLATELET COUNT, AUTOMATED 256 10^3/uL (150-450); RED BLOOD COUNT 3.13 10^6/uL (4.30-6.10); WHITE BLOOD COUNT 8.9 10^3/uL (4.0-10.0)
[2020-10-01 16:58] LABS: BLOOD UREA NITROGEN 22 MG/DL (7-18); CALCIUM LEVEL 8.6 MG/DL (8.8-10.2); CARBON DIOXIDE LEVEL 24 MEQ/L (21-32); CHLORIDE LEVEL 114 MEQ/L (98-107); CREATININE FOR GFR 1.14 MG/DL (0.70-1.30); GLOMERULAR FILTRATION RATE > 60.0 (>35); GLUCOSE, FASTING 125 MG/DL (70-100); POTASSIUM SERUM 2.6 MEQ/L (3.5-5.1); SODIUM LEVEL 146 MEQ/L (136-145)
== END ==
LOC: SKLAB5 15:10
PROVIDERS: ATTEND Nurse Practitioner Adult Health
DX: E87.6 Hypokalemia (principal); R50.9 Fever, unspecified

== ENCOUNTER → 2020-10-02 | Outpatient (REF) | payer MEDICARE ==
[~2020-10-02] MED LIST changes: +CIPR250T3 PO
== END ==
LOC: SKLAB5 08:52
PROVIDERS: ATTEND Nurse Practitioner Adult Health
DX: E87.6 Hypokalemia (principal)

== ENCOUNTER → 2020-10-03 | Outpatient (REF) | payer MEDICARE ==
--- NOTE | 2020-10-03 10:40 | REP ---
INDICATION: R/T NAUSEA COMPARISON: None. TECHNIQUE: Portable supine views of the abdomen and pelvis. FINDINGS: Evidence for colostomy. Bowel gas pattern is nonspecific and includes moderate fecal stasis. IMPRESSION: Moderate fecal stasis. Bowel gas pattern is nonspecific. <Electronically signed by Landry Courtney > 10/03/20 1039
[2020-10-03 10:44] LABS: HEMATOCRIT 31.6 % (42.0-52.0); MEAN CORPUSCULAR HGB CONC 31.6 g/dl (32.0-36.5); MEAN CORPUSCULAR VOLUME 94.9 fl (80.0-96.0); PLATELET COUNT, AUTOMATED 284 10^3/uL (150-450); RED BLOOD COUNT 3.33 10^6/uL (4.30-6.10); WHITE BLOOD COUNT 11.4 10^3/uL (4.0-10.0)
[2020-10-03 14:43] LABS: CALCIUM LEVEL 9.6 MG/DL (8.8-10.2); CREATININE FOR GFR 1.51 MG/DL (0.70-1.30); GLOMERULAR FILTRATION RATE 47.3 (>35); POTASSIUM SERUM 3.1 MEQ/L (3.5-5.1)
== END ==
LOC: SKLAB5 09:15
DX: R11.2 Nausea with vomiting, unspecified (principal)

== ENCOUNTER → 2020-10-03 | Outpatient (REF) | payer MEDICARE | LOC: SKLAB5 14:03 | PROVIDERS: ATTEND Nurse Practitioner Adult Health | DX: E87.6 Hypokalemia (principal) ==

== ENCOUNTER → 2020-10-04 | Outpatient (REF) | payer MEDICARE ==
[2020-10-04 08:37] LABS: RSV AMPLIFICATION NEGATIVE (NEGATIVE)
[2020-10-04 10:13] LABS: HEMATOCRIT 27.9 % (42.0-52.0); HEMOGLOBIN 8.8 g/dl (13.5-17.5); MEAN CORPUSCULAR HGB CONC 31.5 g/dl (32.0-36.5); MEAN CORPUSCULAR VOLUME 95.2 fl (80.0-96.0); PLATELET COUNT, AUTOMATED 259 10^3/uL (150-450); RED BLOOD COUNT 2.93 10^6/uL (4.30-6.10); WHITE BLOOD COUNT 9.6 10^3/uL (4.0-10.0)
[2020-10-04 10:19] LABS: AMORPHOUS SEDIMENT SMALL (NEGATIVE); APPEARANCE, URINE TURBID (CLEAR); BACTERIA, URINE AUTO 3+ (NEGATIVE); BILIRUBIN, URINE AUTO NEGATIVE (NEGATIVE); BLOOD, URINE BLOOD 1+ (NEGATIVE); COLOR, URINE YELLOW (YELLOW); GLUCOSE, URINE (UA) AUTO NEGATIVE (NEGATIVE); KETONE, URINE AUTO NEGATIVE (NEGATIVE); LEUKOCYTE ESTERASE, URINE AUTO 2+ (NEGATIVE); MUCUS, URINE SMALL (NEGATIVE); NITRITE, URINE AUTO NEGATIVE (NEGATIVE); PROTEIN, URINE AUTO 1+ mg/dL (NEGATIVE); RBC, URINE AUTO 77 /HPF (0-3); SPECIFIC GRAVITY URINE AUTO 1.016 (1.002-1.035); SQUAMOUS EPITHELIAL CELL UR AU 0 /HPF (0-6); URIC ACID CRYSTALS SMALL; UROBILINOGEN, URINE AUTO 0.2 mg/dL (0.0-2.0); WBC, URINE AUTO 49 /HPF (0-3)
[2020-10-04 10:53] LABS: ALBUMIN 1.9 GM/DL (3.2-5.2); BILIRUBIN,TOTAL 0.3 MG/DL (0.2-1.0); CALCIUM LEVEL 8.7 MG/DL (8.8-10.2); CREATININE FOR GFR 1.39 MG/DL (0.70-1.30); GLOMERULAR FILTRATION RATE 52.1 (>35); POTASSIUM SERUM 2.9 MEQ/L (3.5-5.1); TOTAL PROTEIN 5.6 GM/DL (6.4-8.2)
--- NOTE | 2020-10-04 12:20 | REP ---
INDICATION: ELEVATED TEMP COMPARISON: 08/30/2020 TECHNIQUE: Portable AP view of the chest FINDINGS: The mediastinum and cardiac silhouette are stable and within normal limits for portable technique. Lung wilkinson demonstrate chronic changes and perihilar/infrahilar airspace disease cannot be excluded. No discrete focal consolidation. No effusion. No pneumothorax. Skeletal structures stable. IMPRESSION: Chronic changes. Cannot exclude perihilar/infrahilar airspace disease. <Electronically signed by Landry Courtney > 10/04/20 0506
== END ==
LOC: SKLAB5 06:28
DX: E87.6 Hypokalemia (principal); R50.9 Fever, unspecified

== ENCOUNTER → 2020-10-05 | Outpatient (REF) | payer MEDICARE | LOC: SKLAB5 16:00 | PROVIDERS: ATTEND Nurse Practitioner Adult Health | DX: R14.0 Abdominal distension (gaseous) (principal); Z93.3 Colostomy status ==

== ENCOUNTER → 2020-10-05 | Outpatient (REF) | payer MEDICARE ==
[2020-10-05 09:49] LABS: HEMATOCRIT 26.7 % (42.0-52.0); HEMOGLOBIN 8.7 g/dl (13.5-17.5); MEAN CORPUSCULAR HEMOGLOBIN 30.9 pg (27.0-33.0); MEAN CORPUSCULAR HGB CONC 32.6 g/dl (32.0-36.5); MEAN CORPUSCULAR VOLUME 94.7 fl (80.0-96.0); PLATELET COUNT, AUTOMATED 237 10^3/uL (150-450); RED BLOOD COUNT 2.82 10^6/uL (4.30-6.10); WHITE BLOOD COUNT 9.1 10^3/uL (4.0-10.0)
[2020-10-05 10:17] LABS: ALBUMIN 1.9 GM/DL (3.2-5.2); BILIRUBIN,TOTAL 0.2 MG/DL (0.2-1.0); CALCIUM LEVEL 8.9 MG/DL (8.8-10.2); CREATININE FOR GFR 1.55 MG/DL (0.70-1.30); GLOMERULAR FILTRATION RATE 45.9 (>35); POTASSIUM SERUM 2.8 MEQ/L (3.5-5.1); TOTAL PROTEIN 5.6 GM/DL (6.4-8.2)
[2020-10-05 10:19] LABS: CALCIUM LEVEL 8.9 MG/DL (8.8-10.2); CREATININE FOR GFR 1.55 MG/DL (0.70-1.30); GLOMERULAR FILTRATION RATE 45.9 (>35); POTASSIUM SERUM 2.8 MEQ/L (3.5-5.1)
[2020-10-05 12:22] LABS: CORTISOL AM 23.5 UG/DL (4.3-22.4)
--- NOTE | 2020-10-05 16:37 | REP ---
INDICATION: DISTENTION S/P DIVERSIONAL COLOSTOMY COMPARISON: 10/03/2020 TECHNIQUE: Supine view of the abdomen and pelvis. FINDINGS: Bowel gas pattern demonstrates significant air-filled loops of small and large bowel suggesting ileus without definite obstruction or perforation. Ostomy overlies the left lower abdomen and surgical sutures are also appreciated in the left lower quadrant. IMPRESSION: Bowel gas pattern suggestive of ileus. <Electronically signed by Landry Courtney > 10/05/20 5082
== END ==
LOC: SKLAB5 15:42
DX: R14.0 Abdominal distension (gaseous) (principal); E87.6 Hypokalemia; Z93.3 Colostomy status

== ENCOUNTER → 2020-10-06 | Outpatient (REF) | payer MEDICARE ==
[2020-10-06 08:59] LABS: CALCIUM LEVEL 8.8 MG/DL (8.8-10.2); CREATININE FOR GFR 1.51 MG/DL (0.70-1.30); GLOMERULAR FILTRATION RATE 47.3 (>35); MAGNESIUM LEVEL 1.9 MG/DL (1.8-2.4); POTASSIUM SERUM 3.2 MEQ/L (3.5-5.1)
== END ==
LOC: SKLAB5 07:15
DX: Z11.52 Encounter for screening for COVID-19 (principal); Z79.899 Other long term (current) drug therapy
CPT/HCPCS: 36415; 80048; 83735; U0003

== ENCOUNTER 2020-10-07 14:37 | Emergency (ER) | payer MEDICARE ==
[~2020-10-07] VITALS: Ht 175.3 cm; Wt 127.4 kg
[~2020-10-07 14:37] MED LIST changes: -CIPR250T3 PO
--- NOTE | 2020-10-07 17:37 | REPVR ---
PROCEDURE INFORMATION: Exam: CT Abdomen And Pelvis Without Contrast Exam date and time: 10/07/2020 4:53 PM Age: 80 years old Clinical indication: Bloating; Additional info: Distention with little ostomy output; R/O obstruction TECHNIQUE: Imaging protocol: Computed tomography of the abdomen and pelvis without contrast. Radiation optimization: All CT scans at this facility use at least one of these dose optimization techniques: automated exposure control; mA and/or kV adjustment per patient size (includes targeted exams where dose is matched to clinical indication); or iterative reconstruction. COMPARISON: CT ABD/PEL W/IV CONTRAST ONLY 08/30/2020 2:15 PM FINDINGS: Lungs: Interstitial lung disease and chronic changes are noted bilaterally. There is more infiltrate in density noted questionably mucous plugging involving both lung bases. This is incompletely visualized. Atelectasis appears involving the right base as well. There is also bronchiectasis. There is an incompletely seen questionable nodule in the left lower lobe at 5 mm on image 201/1. This could be sequelae of infiltrate hree mucous plugging. Consider CT chest. There is bronchiectasis. Liver: The liver is not enlarged. Multiple stable liver cysts. Gallbladder and bile ducts: Normal. No calcified stones. No ductal dilation. Pancreas: There is a lesion of the pancreas likely a cyst better seen on the previous examination due to contrast. It appears stable at 13.5 x 12 mm. Spleen: Normal. No splenomegaly. Adrenal glands: Stable enlargement of the adrenal glands likely hypertrophy. Kidneys and ureters: Stable exophytic left renal cyst. Bilateral renal calcifications with bilateral severe hydronephrosis. There are stones noted within the right distal ureter. Stomach and bowel: There is an annular lesion again noted within the rectum. Has this patient had interval surgery for this lesion? This appears to grow into the right lateral side wall extending to the right bony pelvis. The colon is again very dilated to a suture line in the left upper pelvis. The rest of the bowel including the colon extending to the ostomy is not dilated. There is a new left-sided ostomy. Appendix: No evidence of appendicitis. Intraperitoneal space: Unremarkable. No free air. No significant fluid collection. Vasculature: Calcification nondilated aorta is seen. No abdominal aortic aneurysm. Lymph nodes: Numerous groin lymph nodes are seen. Urinary bladder: There is a Vera catheter the urinary bladder. The urinary bladder is still quite distended with multiple calcifications consistent with stones. Reproductive: The prostate gland is massively enlarged. Bones/joints: The spine is stable with a stable L2 compression fracture. Soft tissues: Unremarkable. IMPRESSION: 1. Bilateral nephrolithiasis with bilateral severe hydronephrosis. There is a Vera catheter in the urinary bladder through an enlarged prostate however, the urinary bladder is very dilated. Stones noted within the distal right ureter as well as in the bladder. 2. Annular rectal lesion extending to the right pelvic sidewall. Dilated loops of colon are seen from the mid to distal descending colon through the lesion. There is a new left-sided colostomy with no evidence of obstruction proximally. 3. Interstitial lung disease question with mucous plugging and possible left lower lobe nodule versus sequelae of infiltrate and mucous plugging. Consider CT chest. Bronchiectasis. 4. Liver cysts. 5. Stable pancreas lesion. 6. Stable adrenal enlargement. Electronically signed by: Chepe Mota On 10/07/2020 17:37:58 PM
[2020-10-07] MEDS ORDERED: CIPROFLOXACIN 250MG TAB PO ONE (19:00)
[2020-10-07] MEDS ORDERED: CIPR250T3 PO (19:05)
[2020-10-07 19:22] VITALS: BP 142/77
--- NOTE | 2020-10-08 13:12 | ED PDOC ---
Post-Departure Follow-Up ct abd/p faxed to dr [facility] for fu Nidia Alba MD Oct 08, 2020 13:12
== END 2020-10-07 19:22 | disposition home or self-care (01) ==
LOC: M ED 14:37
DX: R33.9 Retention of urine, unspecified (principal); T83.091A Other mechanical complication of indwelling urethral catheter, initial encounter; N40.1 Benign prostatic hyperplasia with lower urinary tract symptoms; N18.30 Chronic kidney disease, stage 3 unspecified; K76.89 Other specified diseases of liver; K86.9 Disease of pancreas, unspecified; R91.8 Other nonspecific abnormal finding of lung field; C20 Malignant neoplasm of rectum; I82.409 Acute embolism and thrombosis of unspecified deep veins of unspecified lower extremity; Z88.2 Allergy status to sulfonamides; Z93.3 Colostomy status

== ENCOUNTER → 2020-10-07 | Outpatient (REF) | payer MEDICARE ==
[2020-10-07 10:49] LABS: HEMATOCRIT 30.8 % (42.0-52.0); HEMOGLOBIN 9.7 g/dl (13.5-17.5); MEAN CORPUSCULAR HEMOGLOBIN 29.6 pg (27.0-33.0); MEAN CORPUSCULAR HGB CONC 31.5 g/dl (32.0-36.5); MEAN CORPUSCULAR VOLUME 93.9 fl (80.0-96.0); PLATELET COUNT, AUTOMATED 353 10^3/uL (150-450); RED BLOOD COUNT 3.28 10^6/uL (4.30-6.10); WHITE BLOOD COUNT 8.2 10^3/uL (4.0-10.0)
[2020-10-07 11:57] LABS: CALCIUM LEVEL 9.7 MG/DL (8.8-10.2); CREATININE FOR GFR 2.06 MG/DL (0.70-1.30); GLOMERULAR FILTRATION RATE 33.1 (>35); POTASSIUM SERUM 3.8 MEQ/L (3.5-5.1)
== END ==
LOC: SKLAB5 08:56
DX: E87.6 Hypokalemia (principal)

== ENCOUNTER → 2020-10-08 | Outpatient (REF) | payer MEDICARE ==
[~2020-10-08] MED LIST changes: +CIPR250T3 PO
[2020-10-08 10:20] LABS: CALCIUM LEVEL 9.9 MG/DL (8.8-10.2); CREATININE FOR GFR 2.19 MG/DL (0.70-1.30); GLOMERULAR FILTRATION RATE 30.8 (>35); POTASSIUM SERUM 3.8 MEQ/L (3.5-5.1)
== END ==
LOC: SKLAB5 13:54
DX: E87.6 Hypokalemia (principal)

== ENCOUNTER → 2020-10-11 | Outpatient (REF) | payer MEDICARE ==
[2020-10-11 10:35] LABS: HEMATOCRIT 29.5 % (42.0-52.0); HEMOGLOBIN 9.4 g/dl (13.5-17.5); MEAN CORPUSCULAR HEMOGLOBIN 30.8 pg (27.0-33.0); MEAN CORPUSCULAR HGB CONC 31.9 g/dl (32.0-36.5); MEAN CORPUSCULAR VOLUME 96.7 fl (80.0-96.0); PLATELET COUNT, AUTOMATED 339 10^3/uL (150-450); RED BLOOD COUNT 3.05 10^6/uL (4.30-6.10); WHITE BLOOD COUNT 11.1 10^3/uL (4.0-10.0)
[2020-10-11 11:01] LABS: ALBUMIN 2.2 GM/DL (3.2-5.2); BILIRUBIN,TOTAL 0.2 MG/DL (0.2-1.0); CALCIUM LEVEL 9.4 MG/DL (8.8-10.2); CREATININE FOR GFR 1.35 MG/DL (0.70-1.30); GLOMERULAR FILTRATION RATE 53.9 (>35); POTASSIUM SERUM 3.1 MEQ/L (3.5-5.1)
== END ==
LOC: SKLAB5 06:19
DX: E87.6 Hypokalemia (principal); K62.89 Other specified diseases of anus and rectum

== ENCOUNTER → 2020-10-12 | Outpatient (REF) | payer MEDICARE ==
[2020-10-12 10:23] LABS: CALCIUM LEVEL 9.5 MG/DL (8.8-10.2); CREATININE FOR GFR 1.44 MG/DL (0.70-1.30); POTASSIUM SERUM 3.1 MEQ/L (3.5-5.1)
== END ==
LOC: SKLAB5 06:18
DX: E87.6 Hypokalemia (principal)

== ENCOUNTER → 2020-10-13 | Outpatient (REF) | payer MEDICARE ==
[2020-10-13 10:43] LABS: CALCIUM LEVEL 9.9 MG/DL (8.8-10.2); CREATININE FOR GFR 1.54 MG/DL (0.70-1.30); GLOMERULAR FILTRATION RATE 46.3 (>35); POTASSIUM SERUM 3.9 MEQ/L (3.5-5.1)
== END ==
LOC: SKLAB5 06:54
PROVIDERS: ATTEND Internal Medicine
DX: Z20.822 Contact with and (suspected) exposure to COVID-19 (principal)
CPT/HCPCS: 36415; 80048; U0003

== ENCOUNTER → 2020-10-15 | Outpatient (REF) | payer MEDICARE ==
[~2020-10-15] MED LIST changes: +B-12100020 PO; +DULO1CAP6 PO; +ENSU1LIQ36 PO; +IBUP-1764 PO; +IBUP1TAB5 PO; -IBUP40TA PO; +LISI10TA22; -LISI10TA4; +SENN-50 PO
[2020-10-15 08:42] LABS: HEMATOCRIT 31.7 % (42.0-52.0); HEMOGLOBIN 9.5 g/dl (13.5-17.5); MEAN CORPUSCULAR HEMOGLOBIN 30.4 pg (27.0-33.0); MEAN CORPUSCULAR VOLUME 101.6 fl (80.0-96.0); PLATELET COUNT, AUTOMATED 229 10^3/uL (150-450); RED BLOOD COUNT 3.12 10^6/uL (4.30-6.10); WHITE BLOOD COUNT 12.2 10^3/uL (4.0-10.0)
[2020-10-15 09:00] LABS: BLOOD UREA NITROGEN 18 MG/DL (7-18); CALCIUM LEVEL 8.8 MG/DL (8.8-10.2); CARBON DIOXIDE LEVEL 18 MEQ/L (21-32); CHLORIDE LEVEL 125 MEQ/L (98-107); CREATININE FOR GFR 1.19 MG/DL (0.70-1.30); GLOMERULAR FILTRATION RATE > 60.0 (>35); GLUCOSE, FASTING 109 MG/DL (70-100); POTASSIUM SERUM 3.7 MEQ/L (3.5-5.1); SODIUM LEVEL 151 MEQ/L (136-145)
== END ==
LOC: SKLAB3 07:00
DX: E87.0 Hyperosmolality and hypernatremia (principal)

== ENCOUNTER → 2020-10-16 | Outpatient (REF) | payer MEDICARE ==
[2020-10-16 10:30] LABS: HEMATOCRIT 30.4 % (42.0-52.0); HEMOGLOBIN 9.2 g/dl (13.5-17.5); MEAN CORPUSCULAR HEMOGLOBIN 30.8 pg (27.0-33.0); MEAN CORPUSCULAR HGB CONC 30.3 g/dl (32.0-36.5); MEAN CORPUSCULAR VOLUME 101.7 fl (80.0-96.0); PLATELET COUNT, AUTOMATED 190 10^3/uL (150-450); RED BLOOD COUNT 2.99 10^6/uL (4.30-6.10); WHITE BLOOD COUNT 11.4 10^3/uL (4.0-10.0)
[2020-10-16 10:49] LABS: BLOOD UREA NITROGEN 17 MG/DL (7-18); CALCIUM LEVEL 8.2 MG/DL (8.8-10.2); CARBON DIOXIDE LEVEL 16 MEQ/L (21-32); CHLORIDE LEVEL 124 MEQ/L (98-107); CREATININE FOR GFR 1.12 MG/DL (0.70-1.30); GLOMERULAR FILTRATION RATE > 60.0 (>35); GLUCOSE, FASTING 121 MG/DL (70-100); POTASSIUM SERUM 3.7 MEQ/L (3.5-5.1); SODIUM LEVEL 148 MEQ/L (136-145)
== END ==
LOC: SKLAB3 07:00
DX: E87.0 Hyperosmolality and hypernatremia (principal)

== ENCOUNTER 2020-10-19 02:25 | Inpatient (IN) | payer MEDICARE ==
[~2020-10-19] VITALS: Ht 175.3 cm; Wt 63.1 kg
[2020-10-19] VITALS (15 sets, daily range): BP systolic 82–133; BP diastolic 45–91
[~2020-10-19 02:25] MED LIST changes: -B-12100020 PO; -DULO1CAP6 PO; -ENSU1LIQ36 PO; -IBUP-1764 PO; -SENN-50 PO
[2020-10-19] MEDS ORDERED: NS 1,000 ML IV ONE ×3 (02:30→08:45)
--- OUTSIDE RECORDS SUMMARY | 2020-10-19 02:30 | CCD ---
Author Author [facility] Organization [facility] Address Unknown Phone Unavailable Care Team Providers Care Engineering Manager Name Role Phone Hugo Conley Unavailable PROBLEMS Type Condition ICD9-CM Code [id number] Code Onset Dates Condition S tatus SNOMED Code Notes Problem History of tobacco use Z87.891 Active 468450130 9103 Problem Elevated PSA R97.2 Active 361864281 Problem Uncontrolled hypertension I10 Active 365158 03 Problem CKD (chronic kidney disease), stage III N18.3 Active 377961627 Problem Essential hypertension, hypertension with unspecified goal I10 Active 06987271 Problem CKD (chronic kidney disease) stage 3, GFR 30-59 ml/min N18.3 Active 132452801 Problem 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, unspecified vein I82.501 Active 370044416572350 Problem Chronic anticoagulation Z79.01 Active 93346608 3 Problem Grieving F43.21 Active 495846821 Problem 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 Active 045338457 Problem Hyperlipidemia, unspecified hyperlipidemia type E7 8.5 Active 42221748 ALLERGIES Allergen (clinical drug ingredient) Drug/Non Drug Allergy do cumented on EMR Reaction Allergy Type Onset Date Status amlodipine Amlodipine([facility] Code:[address]-65) Unknown Drug Allergy Active ENCOUNTERS from 1940 to 2020-08-05 Encounter Location Date Provider Diagnosis [facility] [address] [place] [address] Jul, 2020 Hugo Conley Diarrhea, unspecified type R19.7 ; Malai se R53.81 and Encounter for immunization Z23 IMMUNIZATIONS Vaccine Route Administration Date Status Influenza (18 yrs & older) Flublok IM Intramuscular Jul 08, 2020 Administered Influenza (18 yrs & older) Flublok IM Intramuscular Aug 04, 2019 Administered Influenza (18 yrs & older) Flublok IM Intramuscular Oct 03, 2018 Administered TDAP 0.5mL (Boostrix) IM Intramuscular Nov 04, 2019 Administe red Pneumococcal 0.5mL (Prevnar 13) IM Intramuscular December 03, 2018 Administered Influenza (6mo & up) Fluzone IM Sep 23, 2013 Adm inistered SOCIAL HISTORY Tobacco Use: Social History Observation Description Date Details (start date - stop date) Former Smoker Sex Assigned At : Social History Observation Description Sex Assigned At Unknown Education: Question Answer Notes Level of Education: High School Audit Question Answer Notes Total Score: 0 Interpretation: Alcohol Education Language: Question Answer Notes Languages spoken: Namib[place] Judaism: Question Answer Notes Judaism 33 None Sexual Hx: Question Answer Notes Had sex in the last 12 months (vaginal, oral, or anal)? No Have you ever had an STD? No Drug and Alcohol Question Answer Notes Total Score: 0 Interpretation: No problems reported Alcohol Screening: Question Answer Notes Did you have a drink containing alcohol in the past year? No Points 0 Interpretation Negative Tobacco Use: Question Answer Notes Are you a: former smoker How long has it been since you last smoked? 5-10 years REASON FOR REFERRAL No Information VITAL SIGNS Weight 147 lbs Jul, Height 68 in Jul, BMI 22.35 kg/m2 Jul, Heart Rate 90 /min Jul, Respiratory Rate 18 /min Jul, Temperature 98.6 degrees Fahrenheit Jul, Oximetry 100% Jul, Blood pressure systolic 148 mm Hg Jul, Blood pressure diastolic 72 mm Hg Jul, MEDICATIONS Medication SIG (Take, Route, Frequency, Duration) Start Date En d Date Status AmLODIPine Besylate 2.5 MG 1 tablet Orally Once a day for 30 day(s) Active Acetaminophen 500 MG 1 tablet as needed Orally every 6 hrs Active PROCEDURES Procedure Date Ordered Result Body Site Immunization: Flublok Quadrivalent (18 years & older) 0.5mL IM (Influenza) 2020-07-08 N/A RESULTS Component Value Reference Range CBC with Differential Reviewed date:07/13/2020 18:52:00 Interpretation:Hgb 6.1 Performing Lab:On License Of [facility], [facility] [address] [facility] [id number] , ,[facility] WHITE BLOOD COUNT 7.6 4.0-10.0 RED BLOOD COUNT 2.30 4.30-6.10 HEMOGLOBIN 6.1 13.5-17.5 HEMATOCRIT 20.3 42.0-52.0 MEAN CORPUSCULAR VOLUME 88.3 80.0-96.0 MEAN CORPUSCULAR HEMOGLOBIN 26.5 27.0-33.0 MEAN CORPUSCULAR HGB CONC 30.0 32.0-36.5 RED CELL DISTRIBUTION WIDTH 19.1 11.5-14.5 PLATELET COUNT, AUTOMATED 260 150-450 NEUTROPHILS % 66.3 36.0-66.0 LYMPH % 18.9 24.0-44.0 MONO % 10.7 0.0-5.0 EOS % 3.0 0.0-3.0 BASO % 0.3 0.0-1.0 NEUTROPHILS # 5.1 1.5-8.5 LYMPH # 1.4 1.5-5.0 MONO # 0.8 0.0-0.8 EOS # 0.2 0.0-0.5 BASO # 0.0 0.0-0.2 Comprehensive Metabolic Profile (CMP) Reviewed date:07/13/2020 18:52:00 Interpretation:Cr 2.88 Performing Lab:Critical access hospital LABORATORY [address] [facility] [address] , ,[place] [address] GLUCOSE, FASTING 160 70-100 BLOOD UREA NITROGEN 54 7-18 CREATININE FOR GFR 2.88 0.70-1.30 GLOMERULAR FILTRATION RATE 22.5 >35 SODIUM LEVEL 138 136-145 POTASSIUM SERUM 4.3 3.5-5.1 CHLORIDE LEVEL 106 98-107 CARBON DIOXIDE LEVEL 21 21-32 CALCIUM LEVEL 8.7 8.8-10.2 AST/SGOT 11 7-37 ALT/SGPT 10 12-78 ALKALINE PHOSPHATASE 65 45-117 BILIRUBIN,TOTAL 0.2 0.2-1.0 TOTAL PROTEIN 6.5 6.4-8.2 ALBUMIN 2.6 3.2-5.2 ALBUMIN/GLOBULIN RATIO 0.7 C REACTIVE PROTEIN QUANTITATIV (At [facility] L ab) Reviewed date:07/13/2020 18:52:00 Interpretation:5.11 Performing Lab:On License Of [facility], [facility] [address] [facility] [address] , ,[place] [address] C REACTIVE PROTEIN QUANTITATIV 5.11 0.00-0.30 ERYTHROCYTE SEDIMENTATION RATE Reviewed date:07/13/2020 18:52:00 Interpretation:126 Performing Lab:Critical access hospital LABORATORY [address] [facility] [address] , ,[facility] ERYTHROCYTE SEDIMENTATION RATE 126 0-20 TSH Reviewed date:07/13/2020 18:52:00 Interpretation:7.520 Performing Lab:Critical access hospital LABORATORY [address] [facility] [address] , ,[facility] THYROID STIMULATING HORMONE 7.520 0.358-3.740 LIPID PANEL (CARDIAC RISK) Reviewed date:07/13/2020 18:52:00 Interpretation:Tg 164, T 207, H 45, L 129 Performing Lab:Critical access hospital LABORATORY [address] [facility] [address] , ,[place] [address] TRIGLYCERIDES LEVEL 164 <150 CHOLESTEROL LEVEL 207 <200 HDL CHOLESTEROL 45 >40 LDL CHOLESTEROL 129 <100 NON-HDL-C 162 CHOLESTEROL RISK RATIO 4.600 <5 REASON FOR VISIT FU MEDICAL (GENERAL) HISTORY Type Description Date Medical History DVT RLE, single unprovoked , started Xarelto x 6 months then convered to indefinite; anticioagulation stopped 08/2019 after reassessment of bleeding risk (high at >=6.5% because of age and reduced GFR) versus recurrence of DVT (~5%). Medical History HTN, goal 150/90 Medical History tobacco abuse, in remission since 06/14 Medical History Tobacco abuse Surgical History No Surgical history information Hospitalization History RLE DVT 08/13 Goals Section No Information Health Concerns No Information MEDICAL EQUIPMENT No Information MENTAL STATUS No Information FUNCTIONAL STATUS No Information ASSESSMENTS Encounter Date Diagnosis Notes Jul, Encounter for immunization (ICD-10 - Z23 ) Jul, Malaise (ICD-10 - R53.81) Jul, Diarrhea, unspecified type (ICD-10 - R19 .7) PLAN OF TREATMENT Treatment Notes Assessment Notes Clinical Notes Diarrhea, unspecified type Patient Educated with: FLU Vaccine, Inactivated [id number] (FLU Vaccine, Inactivated [id number].pdf) Starting out with some labs for patient's chronic diarrhea. Discussed that colonoscopy/ GI referral likely but starting with labs. Patient did not want to see GI doctor. If indicated he may consider this. Malaise Due to patient's tir edness/ malaise ordering labs. Will have patient follow up soon to discuss labs/ monitor symptoms. Encounter for immunization Recommend flu shot. Patient agreed. Treatment Notes Test Name Order Date HEMOGLOBIN A1c 2020-08-05 Next Appt Details 2-4 weeks Reason:labs, diarrhea, fatigue Provider Name:Marcel Peterson, 2020-08-10 10:00:00 AM, [address], [place], [address], Follow Up:2-4 weekslabs, diarrhea, fatigue Insurance Providers Payer Name Payer Address Payer Phone Insured Name Patient Relati onship to Insured Coverage Start Date Coverage End Date MEDICARE Part A and B [address] [facility] [id number] MANJIT BLAKE [facility] CLAIM DIV [address] [facility] [address] MANJIT BLAKE self
--- OUTSIDE RECORDS SUMMARY | 2020-10-19 02:30 | CCD | Continuity of Care Document ---
Author Author Steve CORCORAN M.D. Organization Unknown Address [address] [facility], [address] [place] [address] Phone [phone] Care Team Providers Care Wax Pattern Coater Name Role Phone Hugo Conley M.D. AUTM [phone] Problems Active Problems Provider Date Essential hypertension Wellingtno Corcoran M.D. Onset: 0 Social History Type Date Description Comments Sex Unknown ETOH Use Denies alcohol use Tobacco Use Start: Unknown Denies Smoking Recreational Drug Use Denies Drug Use Allergies, Adverse Reactions, Alerts Active Allergies Reaction Severity Comments Date Sulfamethoxazole 07/28/2020 Medications Active Medications SIG Qnty Indications Ordering Provide r Date Tylenol 325mg Tablets 2 tab by mouth every 6 hours as needed for pain Unknown Remeron 15mg Tablets every da y Unknown Vitamin B12 1000mcg Tablets ER 1 by mouth every day Unknown Milk Of Magnesia 1200mg/15ML Suspe nsion take 1 dose as directed. Unknown 000 Dulcolax 10mg Suppository 1 per rectum every day as directed Unknown Zofran 4mg Tablets 1 every 6 hours as needed nausea Unknown Immunizations Description No Information Available Vital Signs Date Vital Result Comment 09/06/2020 3:57pm BP Systolic 120 mmHg BP Diastolic 60 mmHg Height 68 inches 5'8" Weight 140.00 lb BMI (Body Mass Index) 21.3 kg/m2 [place] Body Weight 154 lb Weight 63.504 kg BSA (Body Surface Area) 1.76 m2 Results Description No Information Available Procedures Date Code Description Status 07/15/2020 54299 Colonoscopy Flexible Proximal To Splenic Flexure W/Biopsy Single/ Completed Medical Devices Description No Information Available Encounters Description No Information Available Assessments Date Code Description Provider 07/15/2020 K62.5 Hemorrhage of anus and rectum Ro holly Corcoran M.D. 07/15/2020 D50.0 Iron deficiency anemia secondary to blood loss (chronic) Wellington Corcoran M.D. Plan of Treatment No Information Available Functional Status Description No Information Available Mental Status Description No Information Available Referrals Description No Information Available
--- OUTSIDE RECORDS SUMMARY | 2020-10-19 02:31 | CCD ---
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 Name Role Phone WATSON, BENITO Unavailable Unavailable WATSON, BENITO Unavailable Unavailable WATSON, BENITO Unavailable Unavailable WATSON, BENITO Unavailable Unavailable WATSON, BENITO Unavailable Unavailable WATSON, BENITO Unavailable Unavailable WATSON, BENITO Unavailable Unavailable WATSON, BENITO Unavailable Unavailable WATSON, BENITO Unavailable Unavailable WATSON, BENITO Unavailable Unavailable WATSON, BENITO Unavailable Unavailable WATSON, BENITO Unavailable Unavailable WATSON, BENITO Unavailable Unavailable WATSON, BENITO Unavailable Unavailable WATSON, BENITO Unavailable Unavailable WATSON, BENITO Unavailable Unavailable WATSON, BENITO Unavailable Unavailable WATSON, BENITO Unavailable Unavailable WATSON, BENITO Unavailable Unavailable WATSON, BENITO Unavailable Unavailable WATSON, BENITO Unavailable Unavailable WATSON, BENITO Unavailable Unavailable WATSON, BENITO Unavailable Unavailable WATSON, BENITO Unavailable Unavailable WATSON, BENITO Unavailable Unavailable Re-disclosure Warning The records that you are about to access may contain information from federally-assisted alcohol or drug abuse programs. If such information is present, then the following federally mandated warning applies: This information has been disclosed to you from records protected by federal confidentiality rules (42 CFR part 2). The federal rules prohibit you from making any further disclosure of this information unless further disclosure is expressly permitted by the written consent of the person to whom it pertains or as otherwise permitted by 42 CFR part 2. A general authorization for the release of medical or other information is NOT sufficient for this purpose. The Federal rules restrict any use of the information to criminally investigate or prosecute any alcohol or drug abuse patient.The records that you are about to access may contain highly sensitive health information, the redisclosure of which is protected by Article 27-F of the [facility] Public Health law. If you continue you may have access to information: Regarding HIV / AIDS; Provided by facilities licensed or operated by the [facility] Office of Mental Health; or Provided by the [facility] Office for People With Developmental Disabilities. If such information is present, then the following [facility] mandated warning applies: This information has been disclosed to you from confidential records which are protected by state law. State law prohibits you from making any further disclosure of this information without the specific written consent of the person to whom it pertains, or as otherwise permitted by law. Any unauthorized further disclosure in violation of state law may result in a fine or mcc sentence or both. A general authorization for the release of medical or other information is NOT sufficient authorization for further disc losure. Allergies and Adverse Reactions Type Description Substance Reaction Status Data Source(s ) Drug allergy Amlodipine Amlodipine Unknown Active eCW1 ([facility]) Family History Family Member Name Family Member Gender Family Member Status Date o f Status Description Data Source(s) Unknown Unknown Problem MEDENT ([facility]) Encounters Encounter Providers Location Date Indications Data Source(s ) Unknown [address] [facility] [address] 07/28/2020 12:00:00 AM EDT eCW1 ([facility]) [place] [address] [facility] [address] 07/13/2020 12:00:00 AM EDT eCW1 ([facility]) Outpatient [address] [facility] [address] 07/08/2020 12:00:00 AM EDT eCW1 ([facility]) Outpatient [address] [facility] [address] 03/04/2020 12:00:00 AM EDT eCW1 ([facility]) Unknown [address] [facility] [address] 03/04/2020 12:00:00 AM EDT eCW1 ([facility]) [facility] [address] [facility] [address] 11/04/2019 12:00:00 AM EST eCW1 ([facility]) Outpatient Referrer: BENITO WATSON 08/26/2019 09:55:00 P M EST [facility] Immunizations Vaccine Date Status Description Data Source(s) influenza, recombinant, quadrIvalent,injectable, prese rvative free 07/08/2020 02:50:00 PM EDT completed eCW1 ([facility]) influenza, recombinant, quadrIvalent,injectable, prese rvative free 07/08/2020 02:50:00 PM EDT completed eCW1 ([facility]) influenza, recombinant, quadrIvalent,injectable, prese rvative free 07/08/2020 02:50:00 PM EDT completed eCW1 ([facility]) Tdap 11/04/2019 03:14:00 PM EST completed e CW1 ([facility]) Tdap 11/04/2019 03:14:00 PM EST completed e CW1 ([facility]) Tdap 11/04/2019 03:14:00 PM EST completed e CW1 ([facility]) Tdap 11/04/2019 03:14:00 PM EST completed e CW1 ([facility]) Tdap 11/04/2019 03:14:00 PM EST completed e CW1 ([facility]) Tdap 11/04/2019 03:14:00 PM EST completed e CW1 ([facility]) Medications Medication Brand Name Start Date Product Form Dose Route Admi nistrative Instructions Pharmacy Instructions Status Indications Reaction Description Data Source(s) 2.5 mg 07/27/2020 12:00:00 AM EDT tablet 30 TAKE ONE TABLET BY MOUTH ONCE DAILY TAKE ONE TABLET BY MOUTH ONCE DAILY SOLD: 07/27/2020 [facility] 10 mg 06/04/2020 12:00:00 AM EDT tablet 90 TAKE ONE TABLET BY MOUTH EVERY DAY TAKE ONE TABLET BY MOUTH EVERY DAY SOLD: 06/09/2020 [facility] 15 mg 06/03/2020 12:00:00 AM EDT tablet 90 TAKE ONE TABLET BY MOUTH EVERY EVENING TAKE ONE TABLET BY MOUTH EVERY EVENING SOLD: 06/09/2020 [facility] 12.5 mg 03/05/2020 12:00:00 AM EDT capsule 90 TAKE ONE CAPSULE BY MOUTH EVERY MORNING TAKE ONE CAPSULE BY MOUTH EVERY MORNING SOLD: 06/09/2020 [facility] 12.5 mg 03/05/2020 12:00:00 AM EDT capsule 90 TAKE ONE CAPSULE BY MOUTH EVERY MORNING TAKE ONE CAPSULE BY MOUTH EVERY MORNING SOLD: 03/08/2020 [facility] 10 mg 12/02/2019 12:00:00 AM EST tablet 90 TAKE ONE TABLET BY MOUTH EVERY DAY TAKE ONE TABLET BY MOUTH EVERY DAY SOLD: 12/09/2019 [facility] 10 mg 12/02/2019 12:00:00 AM EST tablet 90 TAKE ONE TABLET BY MOUTH EVERY DAY TAKE ONE TABLET BY MOUTH EVERY DAY SOLD: 03/08/2020 [facility] 12.5 mg 09/03/2019 12:00:00 AM EST capsule 90 TAKE ONE CAPSULE BY MOUTH EVERY MORNING TAKE ONE CAPSULE BY MOUTH EVERY MORNING SOLD: 12/09/2019 [facility] 12.5 mg 09/03/2019 12:00:00 AM EST capsule 90 TAKE ONE CAPSULE BY MOUTH EVERY MORNING TAKE ONE CAPSULE BY MOUTH EVERY MORNING SOLD: 09/07/2019 [facility] 10 mg 05/30/2019 12:00:00 AM EDT tablet 90 TAKE ONE TABLET BY MOUTH ONCE A DAY TAKE ONE TABLET BY MOUTH ONCE A DAY SOLD: 09/07/2019 [facility] Insurance Providers Payer name Policy type / Coverage type Policy ID Covered democrat ID Covered democrat's relationship to max Policy Max Plan Information MEDICARE [id number] SP [id number] [facility] [id number] SP [id number] [employer] OPTIONS [id number] SP [id number] MEDICARE C [id number] S [id number] AARP O [id number] S [id number] ANSI-Commercial [id number] ANSI-Medicare Part B [id number] ANSI-Commercial [id number] ANSI-Medicare Part B [id number] ANSI-Commercial [id number] ANSI-Medicare Part B [id number] ANSI-Medicare Part B [id number] ANSI-Commercial [id number] ANSI-Medicare Part B [id number] ANSI-Commercial [id number] ANSI-Commercial [id number] ANSI-Medicare Part B [id number] ANSI-Medicare Part B [id number] ANSI-Commercial [id number] MEDICARE [id number] SP [id number] A [facility] Options Medigap Part B Self Medicare [facility] Medicare Primary Self MEDICARE C [id number] S [id number] A [place] [employer] [id number] SP [id number] AARP S UNAVAILABLE S UNAVAILA BLE MEDICARE P UNAVAILABLE S UNAVAILA BLE MEDICARE -O/P [id number] Problems, Conditions, and Diagnoses Code Display Name Description Problem Type Effective Dates Data Source(s) 78040479 Essential hypertension Essential hypertension Problem 07/28/2020 12:00:00 AM EDT MEDENT ([facility], ) N18.3 132442986 CKD (chronic kidney disease) stage 3, GFR 30-59 ml/min Problem 11/04/2019 12:00:00 AM EST eCW1 ([facility]) N18.3 300960934 CKD (chronic kidney disease), stage III P roblem 11/04/2019 12:00:00 AM EST eCW1 ([facility]) N18.3 217476044 CKD (chronic kidney disease), stage III P roblem 11/04/2019 12:00:00 AM EST eCW1 ([facility]) Surgeries/Procedures Procedure Description Date Indications Data Source(s) Colonoscopy Flexible Proximal To Splenic Flexure W/Biopsy Si ngle/ 07/15/2020 12:00:00 AM EDT MEDENT ([facility]) Immunization: Flublok Quadrivalent (18 years & older) 0.5mL IM (Influenza) 07/08/2020 12:00:00 AM EDT eCW1 ([facility]) Office Visit, Est Pt., Level 3 PC 11/04/2019 12:00:00 AM EST eCW1 ([facility]) Office Visit, Est Pt., Level 3 FC 11/04/2019 12:00:00 AM EST eCW1 ([facility]) TDAP 0.5mL ([facility]) 11/04/2019 12:00:00 AM EST eCW1 ([facility]) IMMUNIZATION ADMIN 11/04/2019 12:00:00 AM EST eCW1 ([facility]) Results ID Date Data Source [id number] 10/13/2020 09:00:00 AM EST [facility] Name Value Range Interpretation Code Description Data Jeannette rce(s) Supporting Document(s) SARS coronavirus 2 RNA Not Detected [facility] [place] This lab was ordered by [facility] and reported by [facility]. ID Date Data Source [id number] 10/06/2020 11:00:00 AM EST [facility] Name Value Range Interpretation Code Description Data Jeannette rce(s) Supporting Document(s) SARS coronavirus 2 RNA Not Detected [facility] [place] This lab was ordered by [facility] and reported by [facility]. ID Date Data Source [id number] 10/04/2020 07:30:00 AM EST [facility] Name Value Range Interpretation Code Description Data Jeannette rce(s) Supporting Document(s) SARS coronavirus 2 RNA [Presence] in Res piratory specimen by YVONNE with probe detection [facility] This lab was ordered by [facility] a nd reported by [facility]. ID Date Data Source [id number] 10/04/2020 12:00:00 AM EST [facility] Name Value Range Interpretation Code Description Data Jeannette rce(s) Supporting Document(s) SARS-CoV2 Rapid Antigen [facility] This lab was ordered by [facility] and reported by [facility]. ID Date Data Source [id number] 09/29/2020 09:00:00 AM EST [facility] Name Value Range Interpretation Code Description Data Jeannette rce(s) Supporting Document(s) SARS coronavirus 2 RNA [facility] This lab was ordered by [facility] and reported by [facility]. ID Date Data Source [id number] 09/27/2020 09:15:00 AM EST [facility] Name Value Range Interpretation Code Description Data Jeannette rce(s) Supporting Document(s) SARS coronavirus 2 RNA [Presence] in Res piratory specimen by YVONNE with probe detection [facility] This lab was ordered by [facility] a nd reported by [facility]. ID Date Data Source [id number] 09/17/2020 12:30:00 PM EST [facility] Name Value Range Interpretation Code Description Data Jeannette rce(s) Supporting Document(s) SARS coronavirus 2 RNA [facility] This lab was ordered by [facility] and reported by [facility]. ID Date Data Source [id number] 09/15/2020 07:30:00 AM EST [facility] Name Value Range Interpretation Code Description Data Jeannette rce(s) Supporting Document(s) SARS coronavirus 2 RNA [facility] This lab was ordered by [facility] and reported by [facility]. ID Date Data Source [id number] 09/08/2020 06:15:00 AM EST [facility] Name Value Range Interpretation Code Description Data Jeannette rce(s) Supporting Document(s) SARS coronavirus 2 RNA [facility] This lab was ordered by [facility] and reported by [facility]. ID Date Data Source [id number] 08/30/2020 04:59:00 PM EST [facility] Name Value Range Interpretation Code Description Data Jeannette rce(s) Supporting Document(s) SARS coronavirus 2 RNA [Presence] in Res piratory specimen by YVONNE with probe detection [facility] This lab was ordered by [facility] a nd reported by [facility]. ID Date Data Source [id number] 08/25/2020 11:00:00 AM EST [facility] Name Value Range Interpretation Code Description Data Jeannette rce(s) Supporting Document(s) SARS coronavirus 2 RNA [facility] This lab was ordered by [facility] and reported by [facility]. ID Date Data Source LIPID PANEL (CARDIAC RISK) 07/13/2020 07:52:00 AM EDT eCW1 ( [facility]) Name Value Range Interpretation Code Description Data Jeannette rce(s) Supporting Document(s) Triglyceride [Mass/volume] in Serum or Plasma by calculation 164 TRIGLYCERIDES LEVEL eCW1 ([facility]) Cholesterol [Moles/volume] in Serum or Plasma 207 CHOLESTEROL LEVEL eCW1 ([facility]) Cholesterol in LDL [Mass/volume] in Serum or Plasma by calculation 129 LDL CHOLESTEROL eCW1 ([facility]) 162 NON-HDL-C eCW1 ([facility]) Cholesterol in HDL [Moles/volume] in Serum or Plasma 45 HDL CHOLESTEROL eCW1 ([facility]) 4.600 CHOLESTEROL RISK RATIO eCW1 ([facility]) ID Date Data Source TSH 07/13/2020 07:52:00 AM EDT eCW1 ([facility]) Name Value Range Interpretation Code Description Data Jeannette rce(s) Supporting Document(s) 7.520 THYROID STIMULATING HORMONE eC W1 ([facility]) ID Date Data Source ERYTHROCYTE SEDIMENTATION RATE 07/13/2020 07:52:00 AM EDT eC W1 ([facility]) Name Value Range Interpretation Code Description Data Jeannette rce(s) Supporting Document(s) 126 ERYTHROCYTE SEDIMENTATION RATE eCW1 ([facility]) ID Date Data Source C REACTIVE PROTEIN QUANTITATIV (At [facility]) 07/13/2020 07:52 :00 AM EDT eCW1 ([facility]) Name Value Range Interpretation Code Description Data Jeannette rce(s) Supporting Document(s) 5.11 C REACTIVE PROTEIN QUANTITATIV eCW1 ([facility]) ID Date Data Source Comprehensive Metabolic Profile (CMP) 07/13/2020 07:52:00 AM EDT eCW1 ([facility]) Name Value Range Interpretation Code Description Data Jeannette rce(s) Supporting Document(s) 160 GLUCOSE, FASTING eCW1 ([facility]) 2.88 CREATININE FOR GFR eCW1 ([facility]) 54 BLOOD UREA NITROGEN eCW1 ([facility]) 4.3 POTASSIUM SERUM eCW1 ([facility]) 138 SODIUM LEVEL eCW1 ([facility]) 22.5 GLOMERULAR FILTRATION RATE eCW 1 ([facility]) 106 CHLORIDE LEVEL eCW1 ([facility]) 21 CARBON DIOXIDE LEVEL eCW1 ([facility]) 8.7 CALCIUM LEVEL eCW1 ([facility]) 11 AST/SGOT eCW1 ([facility]) 6.5 TOTAL PROTEIN eCW1 ([facility]) 65 ALKALINE PHOSPHATASE eCW1 ([facility]) 10 ALT/SGPT eCW1 ([facility]) 0.2 BILIRUBIN,TOTAL eCW1 ([facility]) 0.7 ALBUMIN/GLOBULIN RATIO eCW1 ([facility]) 2.6 ALBUMIN eCW1 ([facility]) ID Date Data Source CBC with Differential 07/13/2020 07:52:00 AM EDT eCW1 ([facility]) Name Value Range Interpretation Code Description Data Jeannette rce(s) Supporting Document(s) 7.6 WHITE BLOOD COUNT eCW1 ([facility]) 2.30 RED BLOOD COUNT eCW1 ([facility]) 6.1 HEMOGLOBIN eCW1 ([facility]) 20.3 HEMATOCRIT eCW1 ([facility]) 88.3 MEAN CORPUSCULAR VOLUME eCW1 ( [facility]) 26.5 MEAN CORPUSCULAR HEMOGLOBIN eC W1 ([facility]) 30.0 MEAN CORPUSCULAR HGB CONC eCW1 ([facility]) 19.1 RED CELL DISTRIBUTION WIDTH eC W1 ([facility]) 260 PLATELET COUNT, AUTOMATED eCW1 ([facility]) 66.3 NEUTROPHILS % eCW1 ([facility]) 18.9 LYMPH % eCW1 ([facility]) 10.7 MONO % eCW1 ([facility]) 5.1 NEUTROPHILS # eCW1 ([facility]) 1.4 LYMPH # eCW1 ([facility]) 0.3 BASO % eCW1 ([facility]) 3.0 EOS % eCW1 ([facility]) 0.2 EOS # eCW1 ([facility]) 0.8 MONO # eCW1 ([facility]) 0.0 BASO # eCW1 ([facility]) Procedure Social History Code Duration Value Status Description Data Source(s ) Smoking 07/08/2020 12:00:00 AM EDT Former Smoker completed Former Smoker eCW1 ([facility]) Smoking 07/08/2020 12:00:00 AM EDT Former Smoker completed Former Smoker eCW1 ([facility]) Smoking 07/08/2020 12:00:00 AM EDT Former Smoker completed Former Smoker eCW1 ([facility]) Smoking 03/04/2020 12:00:00 AM EDT Former Smoker completed Former Smoker eCW1 ([facility]) Smoking 03/04/2020 12:00:00 AM EDT Former Smoker completed Former Smoker eCW1 ([facility]) Vital Signs ID Date Data Source UNK Name Value Range Interpretation Code Description Data Source(s) Body surface area Derived from formula 1.76 m2 1.76 m2 [facility]) Body weight 63.504 kg 63.504 kg [facility]) Clio body weight 154 [lb_av] 154 [lb_av] [facility] Body mass index (BMI) [Ratio] 21.3 kg/m2 21.3 k g/m2 [facility] ([facility]) Body weight 140.00 [lb_av] 140.00 [lb_av] [facility] ([facility]) Body height 68 [in_i] 68 [in_i] [facility] ([facility]) 5'8" Diastolic blood pressure 60 mm[Hg] 60 mm[Hg] MEDENT ([facility], ) Systolic blood pressure 120 mm[Hg] 120 mm[Hg] M EDENT ([facility], ) Diastolic blood pressure 72 mm[Hg] 72 mm[Hg] eCW1 ([facility]) Systolic blood pressure 148 mm[Hg] 148 mm[Hg] e CW1 ([facility]) Body temperature 98.6 [degF] 98.6 [degF] eCW1 ( [facility]) Respiratory rate 18 /min 18 /min eCW1 ([facility]) Heart rate 90 /min 90 /min eCW1 ([facility]) Body mass index (BMI) [Ratio] 22.35 kg/m2 22.35 kg/m2 W1 ([facility]) Body height 68 [in_i] 68 [in_i] eCW1 ([facility]) Body weight 147 [lb_av] 147 [lb_av] eCW1 ([facility]) Diastolic blood pressure 75 mm[Hg] 75 mm[Hg] eCW1 ([facility]) Systolic blood pressure 154 mm[Hg] 154 mm[Hg] e CW1 ([facility]) Body temperature 98.7 [degF] 98.7 [degF] eCW1 ( [facility]) Respiratory rate 18 /min 18 /min eCW1 ([facility]) Heart rate 90 /min 90 /min eCW1 ([facility]) Body mass index (BMI) [Ratio] 24.02 kg/m2 24.02 kg/m2 eCW1 ([facility]) Body height 68 [in_i] 68 [in_i] eCW1 ([facility]) Body weight 158 [lb_av] 158 [lb_av] eCW1 ([facility]) Diastolic blood pressure 84 mm[Hg] 84 mm[Hg] eCW1 ([facility]) Systolic blood pressure 188 mm[Hg] 188 mm[Hg] e CW1 ([facility]) Body temperature 98.4 [degF] 98.4 [degF] eCW1 ( [facility]) Respiratory rate 18 /min 18 /min eCW1 ([facility]) Heart rate 75 /min 75 /min eCW1 ([facility]) Body mass index (BMI) [Ratio] 26.15 kg/m2 26.15 kg/m2 eCW1 ([facility]) Body height 68 [in_us] 68 [in_us] eCW1 ([facility]) Body weight Measured 172 [lb_av] 172 [lb_av] eC W1 ([facility])
--- OUTSIDE RECORDS SUMMARY | 2020-10-19 02:31 | CCD ---
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 Name Role Phone Hugo Conley Unavailable PROBLEMS Type Condition ICD9-CM Code [id number] Code Onset Dates Condition S tatus SNOMED Code Notes Problem History of tobacco use Z87.891 Active 913715615 9103 Problem Elevated PSA R97.2 Active 857301802 Problem Uncontrolled hypertension I10 Active 465065 03 Problem CKD (chronic kidney disease), stage III N18.3 Active 675039556 Problem Essential hypertension, hypertension with unspecified goal I10 Active 11342804 Problem CKD (chronic kidney disease) stage 3, GFR 30-59 ml/min N18.3 Active 245677720 Problem 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, unspecified vein I82.501 Active 471600414405560 Problem Chronic anticoagulation Z79.01 Active 04956916 3 Problem Grieving F43.21 Active 255423337 Problem 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 Code:[address]-12) Unknown Drug Allergy Active ENCOUNTERS from 1940 to 2020-07-29 Encounter Location Date Provider Diagnosis [facility] [place] [address] Jul, Hugo Conley IMMUNIZATIONS Vaccine Route Administration Date Status Influenza [...] Education Language: Question Answer Notes Languages spoken: [employer] Church: Question Answer Notes Church 33 None Sexual Hx: Question Answer Notes [...] REASON FOR REFERRAL No Information VITAL SIGNS No information MEDICATIONS Medication SIG (Take, Route, Frequency, Duration) Start Date En d Date Status AmLODIPine Besylate 2.5 MG 1 tablet Orally Once a day for 30 day(s) Active Acetaminophen 500 MG 1 tablet as needed Orally every 6 hrs Active PROCEDURES No Information RESULTS No Results REASON FOR VISIT TCM/ACO [facility] d/c 07/27; acute anemia acute renal failure MEDICAL (GENERAL) HISTORY Type Description Date Medical [...] No Information FUNCTIONAL STATUS No Information ASSESSMENTS No Information PLAN OF TREATMENT Next Appt Details Provider Name:Hugo Byrne Yael 2020-08-05 01:30:00 PM, [address] [place], [address], Provider Name:Marcel Peterson, 2020-08-10 10:00:00 AM, [address], [place], [address], Insurance Providers Payer Name Payer Address Payer Phone Insured Name Patient Relati onship to Insured Coverage Start Date Coverage End Date MEDICARE Part A and B [address] [facility] [id number] [phone] MANJIT BLAKE self [facility] OPTIONS [facility] CLAIM DIV [address] [facility] [id number] MANJIT BLAKE self
[2020-10-19 02:53] LABS: HEMATOCRIT 35.9 % (42.0-52.0); MEAN CORPUSCULAR HEMOGLOBIN 30.2 pg (27.0-33.0); MEAN CORPUSCULAR HGB CONC 30.6 g/dl (32.0-36.5); MEAN CORPUSCULAR VOLUME 98.6 fl (80.0-96.0); PLATELET COUNT, AUTOMATED 235 10^3/uL (150-450); RED BLOOD COUNT 3.64 10^6/uL (4.30-6.10); WHITE BLOOD COUNT 8.2 10^3/uL (4.0-10.0)
[2020-10-19] MEDS ORDERED: VANCOMYCIN HCL 1,000 MG, VIAL MATE ADAPTER 1 EACH in D5W 250 ML IV ONE (03:00)
[2020-10-19] MEDS ORDERED: PIPERACILLIN/TAZOBACTAM SOD 4.5 GM in D5W MINI-BAG PLUS 50 ML IV ONE (03:00)
[2020-10-19 03:23] LABS: ANISOCYTOSIS 2+; ATYPICAL LYMPH 1 % (0-5); LYMPHOCYTES 16 % (16-44); METAMYELOCYTES 18 % (0-0); MONOCYTES 2 % (0-5); MYELOCYTES 2 % (0-0); NEUTROPHILS 35 % (28-66); PLATELET ESTIMATE NORMAL (NORMAL); POLYCHROMASIA 1+
[2020-10-19 03:29] LABS: ALBUMIN 1.9 GM/DL (3.2-5.2); BILIRUBIN,DIRECT 0.2 MG/DL (0.0-0.2); BILIRUBIN,TOTAL 0.4 MG/DL (0.2-1.0); CALCIUM LEVEL 9.2 MG/DL (8.8-10.2); CK-MB VALUE MASS 1.8 NG/ML (<3.6); CREATININE FOR GFR 2.09 MG/DL (0.70-1.30); GLOMERULAR FILTRATION RATE 32.5 (>35); MB/CK RELATIVE INDEX 4.5 (< OR =4); POTASSIUM SERUM 4.1 MEQ/L (3.5-5.1); THYROID STIMULATING HORMONE 4.48 uIU/ML (0.358-3.740); TOTAL PROTEIN 5.9 GM/DL (6.4-8.2); TROPONIN I 0.05 NG/ML (< 0.10)
[2020-10-19] MEDS ORDERED: NS 1,000 ML in IV 1 EA IV ONE (03:30)
--- NOTE | 2020-10-19 03:42 | REPVR ---
PROCEDURE INFORMATION: Exam: XR Chest, 1 View Exam date and time: 10/19/2020 3:30 AM Age: 80 years old Clinical indication: Other: AMS; Additional info: Altered mental status TECHNIQUE: Imaging protocol: XR of the chest Views: 1 view. COMPARISON: DC Chest, 1 view 10/04/2020 11:09 AM FINDINGS: Lungs: Left greater than right basilar airspace consolidation. Pleural space: No pleural effusion. No pneumothorax. Heart/Mediastinum: Unremarkable. No cardiomegaly. Bones/joints: Unremarkable. Intraperitoneal space: There is pneumoperitoneum under the right hemidiaphragm. Gastrointestinal tract: Mild gaseous distention of visualized bowel in the upper abdomen. IMPRESSION: 1. Pneumoperitoneum. 2. Bibasilar pneumonia, worse on the left. 3. Gaseous distention of visualized bowel in the upper abdomen. findings were verbally communicated via telephone conference with DENI MORAN at 3:41 AM EST on 10/19/2020. Electronically signed by: Tor Gomez On 10/19/2020 03:42:00 AM
--- NOTE | 2020-10-19 03:47 | REPVR ---
PROCEDURE INFORMATION: Exam: CT Head Without Contrast Exam date and time: 10/19/2020 2:30 AM Age: 80 years old Clinical indication: Altered mental status/memory loss; Confusion or disorientation TECHNIQUE: Imaging protocol: Computed tomography of the head without contrast. Radiation optimization: All CT scans at this facility use at least one of these dose optimization techniques: automated exposure control; mA and/or kV adjustment per patient size (includes targeted exams where dose is matched to clinical indication); or iterative reconstruction. COMPARISON: CT Head without contrast 07/29/2020 1:58 PM FINDINGS: Brain: Cerebral volume loss and chronic white matter changes. Chronic basal ganglia lacunar infarctions are not significantly changed. No intracranial hemorrhage. No midline shift or herniation. Cerebral ventricles: No ventriculomegaly. Bones/joints: Unremarkable. No acute fracture. Paranasal sinuses: Visualized sinuses are unremarkable. No fluid levels. Mastoid air cells: Visualized mastoid air cells are well aerated. Soft tissues: Unremarkable. IMPRESSION: 1. Cerebral volume loss and chronic white matter changes. 2. No acute intracranial abnormality. Electronically signed by: Tor Gomez On 10/19/2020 03:46:41 AM
--- NOTE | 2020-10-19 04:19 | REPVR ---
PROCEDURE INFORMATION: Exam: CT Chest Without Contrast; Diagnostic Exam date and time: 10/19/2020 3:42 AM Age: 80 years old Clinical indication: Shortness of breath; Additional info: Sepsis, pneumoperitoneum TECHNIQUE: Imaging protocol: Diagnostic computed tomography of the chest without contrast. Radiation optimization: All CT scans at this facility use at least one of these dose optimization techniques: automated exposure control; mA and/or kV adjustment per patient size (includes targeted exams where dose is matched to clinical indication); or iterative reconstruction. COMPARISON: CT Chest without contrast 07/16/2020 12:59 PM FINDINGS: Lungs: There is multifocal airspace consolidation in both lungs, worse on the left. Pleural space: Small left pleural effusion. No pneumothorax. Heart: Normal heart size. Mild coronary artery atherosclerotic disease. Aorta: Unremarkable. No aortic aneurysm. Lymph nodes: Unremarkable. No enlarged lymph nodes. Bones/joints: Skeletal degenerative changes are noted. Soft tissues: Unremarkable. IMPRESSION: 1. Bilateral pneumonia, worse on the left. 2. Small left pleural effusion. 3. Coronary artery disease. Electronically signed by: Tor Gomez On 10/19/2020 04:18:40 AM
[2020-10-19 04:21] LABS: ABG BASE EXCESS -15.2 (-2.0-2.0); ABG HCO3 9.4 MEQ/L (22.0-26.0); ABG O2 SATURATION 87.6 % (95.0-99.0); ABG STANDARD HCO3 12.5 MEQ/L (22.0-26.0); ABG pH (ARTERIAL) 7.299 UNITS (7.350-7.450)
[2020-10-19 04:24] LABS: ABG PARTIAL PRESSURE CO2 19.6 mmHg (35.0-45.0)
[2020-10-19] MEDS ORDERED: ACETAMINOPHEN 325 MG/10.15 ML UDC PO ONE (04:30)
--- NOTE | 2020-10-19 04:36 | REPVR ---
PROCEDURE INFORMATION: Exam: CT Abdomen And Pelvis Without Contrast Exam date and time: 10/19/2020 3:42 AM Age: 80 years old Clinical indication: Other: Sepsis; Additional info: Sepsis, pneumoperitoneum TECHNIQUE: Imaging protocol: Computed tomography of the abdomen and pelvis without contrast. Radiation optimization: All CT scans at this facility use at least one of these dose optimization techniques: automated exposure control; mA and/or kV adjustment per patient size (includes targeted exams where dose is matched to clinical indication); or iterative reconstruction. COMPARISON: CT ABD PELVIS W/O CONTRAST 10/07/2020 4:49 PM FINDINGS: Liver: Multiple cysts in the liver are unchanged. No new liver masses. There is interposition of the hepatic flexure between the liver in the right hemidiaphragm. Gallbladder and bile ducts: Normal. No calcified stones. No ductal dilation. Pancreas: 1.7 cm cyst in the pancreatic tail is unchanged. No new pancreatic mass or duct dilation. Spleen: Normal. No splenomegaly. Adrenal glands: Left adrenal hyperplasia. Kidneys and ureters: Multiple bilateral renal cysts are unchanged. Hydronephrosis seen on the prior exam has resolved. Stomach and bowel: Stomach is mildly distended with air. No gastric outlet obstruction. Irregular circumferential rectal mass with surrounding nodularity and presacral soft tissue edema is not significantly changed. There is a tract extending through the right rectal wall to the right welder operator internus muscle with associated muscular thickening and edema, not significantly changed. The rectum and sigmoid colon proximal to the mass is severely dilated with fluid, more severe than on the prior exam. The colon remains dilated to a suture line in the left pelvis. The colon proximal to the ostomy is dilated with air and fluid, slightly worse since the previous exam. Mild wall thickening in the splenic flexure of the colon. Colonic diverticulosis is present. Small bowel is unremarkable. Appendix: Not visualized. Intraperitoneal space: No pneumoperitoneum or abscess. Vasculature: Fusiform infrarenal abdominal aortic aneurysm measuring 3.0 cm is unchanged. Vasculature: Unremarkable. No abdominal aortic aneurysm. Lymph nodes: Unremarkable. No enlarged lymph nodes. Urinary bladder: There is a Vera catheter in the urinary bladder. There is circumferential wall thickening and calculi in the urinary bladder. Reproductive: Prostate gland is enlarged. Bones/joints: There are advanced degenerative changes in the spine and pelvis. Small right hip joint effusion. Chronic L2 compression fracture. Soft tissues: Generalized subcutaneous edema. IMPRESSION: 1. Mild distention of the colon proximal to the ostomy. Wall thickening in the splenic flexure may be an artifact related to nondistention. No proximal colonic obstruction is seen. 2. Worsening fluid dilation of the colon distal to the left lower quadrant suture line. Stable appearance of irregular circumferential mass in the rectum with sinus tract extending to the right welder operator internus muscle. 3. No pneumoperitoneum or abscess. 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 4. Thick-walled urinary bladder suggesting cystitis. Hydronephrosis has resolved. Electronically signed by: Tor Gomez On 10/19/2020 04:36:00 AM
[2020-10-19] MEDS ORDERED: ACET-897 PO (04:41)
[2020-10-19] MEDS ORDERED: DULO1CAP6 PO (04:41)
[2020-10-19] MEDS ORDERED: SENN-50 PO (04:41)
[2020-10-19] MEDS ORDERED: B-12100020 PO (04:41)
[2020-10-19] MEDS ORDERED: ENSU1LIQ36 PO (04:41)
[2020-10-19] MEDS ORDERED: IBUP-1764 PO (04:41)
[2020-10-19] MEDS ORDERED: MOM30SS PO (04:41)
--- OUTSIDE RECORDS SUMMARY | 2020-10-19 04:52 | CCD ---
Author Author [facility] Organization [facility] Address Unknown Phone Unavailable Care Team Providers Care Exhibits Manager Name Role Phone WATSON, BENITO Unavailable Unavailable [...] is protected by Article 27-F of the [facility] Public Health law. If you continue you may have access to information: Regarding HIV / AIDS; Provided by facilities licensed or operated by the [facility] Office of Mental Health; or Provided by the [facility] Office for People With Developmental Disabilities. If such information is present, then the following [facility] mandated warning applies: This information [...] law may result in a fine or penitentiary sentence or both. A general authorization for the release of medical or other information is NOT sufficient authorization for further disc losure. Allergies and Adverse Reactions Type Description Substance Reaction Status Data Source(s ) Drug allergy Amlodipine Amlodipine Unknown Active eCW1 ([facility]) Family History Family Member Name Family Member Gender Family Member Status Date o f Status Description Data Source(s) Unknown Unknown Problem MEDENT ([facility]) Encounters Encounter Providers Location Date Indications Data Source(s ) [place] [address] [facility] [address] 07/28/2020 12:00:00 AM EDT eCW1 ([facility]) [place] [address] [facility] [address] 07/13/2020 12:00:00 AM EDT eCW1 ([facility]) [place] [address] [facility] [address] 07/08/2020 12:00:00 AM EDT eCW1 ([facility]) [place] [address] [facility] [address] 03/04/2020 12:00:00 AM EDT eCW1 ([facility]) [place] [address] [facility] [address] 03/04/2020 12:00:00 AM EDT eCW1 ([facility]) [facility] [address] [facility] [address] 11/04/2019 12:00:00 AM EST eCW1 ([facility]) Outpatient Referrer: BENITO WATSON 08/26/2019 09:55:00 P M EST [facility] Immunizations Vaccine Date Status Description Data Source(s) influenza, recombinant, quadrIvalent,injectable, prese rvative free 07/08/2020 02:50:00 PM EDT completed eCW1 ([facility]) influenza, recombinant, quadrIvalent,injectable, prese rvative free 07/08/2020 02:50:00 PM EDT completed eCW1 ([facility]) influenza, recombinant, quadrIvalent,injectable, prese rvative free 07/08/2020 02:50:00 PM EDT completed eCW1 ([facility]) Tdap 11/04/2019 03:14:00 PM EST completed e CW1 ([facility]) Tdap 11/04/2019 03:14:00 PM EST completed e CW1 ([facility]) Tdap 11/04/2019 03:14:00 PM EST completed e CW1 ([facility]) Tdap 11/04/2019 03:14:00 PM EST completed e CW1 ([facility]) Tdap 11/04/2019 03:14:00 PM EST completed e CW1 ([facility]) Tdap 11/04/2019 03:14:00 PM EST completed e CW1 ([facility]) Medications Medication Brand Name Start Date Product [...] to max Policy Max Plan Information MEDICARE [id number] SP [id number] [facility] [id number] SP [id number] [employer] OPTIONS [id number] SP [id number] MEDICARE C [id number] S [id number] AARP O [id number] S [id number] ANSI-Commercial [id number] ANSI-Medicare Part B [id number] ANSI-Commercial [id number] ANSI-Medicare Part B [id number] ANSI-Commercial [id number] ANSI-Medicare Part B [id number] ANSI-Medicare Part B [id number] ANSI-Commercial [id number] ANSI-Medicare Part B [id number] ANSI-Commercial [id number] ANSI-Commercial [id number] ANSI-Medicare Part B [id number] ANSI-Medicare Part B [id number] ANSI-Commercial [id number] MEDICARE [id number] SP [id number] A [facility] Options Medigap Part B Self Medicare [facility] Medicare Primary Self MEDICARE C [id number] S [id number] A [employer] [id number] SP [id number] AARP S UNAVAILABLE S UNAVAILA BLE MEDICARE P UNAVAILABLE S UNAVAILA BLE MEDICARE -O/P [id number] Problems, Conditions, and Diagnoses Code Display Name Description Problem Type Effective Dates Data Source(s) 36545312 Essential hypertension Essential hypertension Problem 07/28/2020 12:00:00 AM EDT MEDENT ([facility], ) N18.3 [id number] CKD (chronic kidney disease) stage 3, GFR 30-59 ml/min Problem 11/04/2019 12:00:00 AM EST eCW1 ([facility]) N18.3 [id number] CKD (chronic kidney disease), stage III P roblem 11/04/2019 12:00:00 AM EST eCW1 ([facility]) N18.3 [id number] CKD (chronic kidney disease), stage III P roblem 11/04/2019 12:00:00 AM EST eCW1 ([facility]) Surgeries/Procedures Procedure Description Date Indications Data Source(s) Colonoscopy Flexible Proximal To Splenic Flexure W/Biopsy Si ngle/ 07/15/2020 12:00:00 AM EDT MEDENT ([facility]) Immunization: Flublok Quadrivalent (18 years & older) 0.5mL IM (Influenza) 07/08/2020 12:00:00 AM EDT eCW1 ([facility] Office Visit, Est Pt., Level 3 PC 11/04/2019 12:00:00 AM EST eCW1 ([facility]) Office Visit, Est Pt., Level 3 FC 11/04/2019 12:00:00 AM EST eCW1 ([facility]) TDAP 0.5mL ([facility]) 11/04/2019 12:00:00 AM EST eCW1 ([facility]) IMMUNIZATION ADMIN 11/04/2019 12:00:00 AM EST eCW1 ([facility]) Results ID Date Data Source [id number] 10/13/2020 09:00:00 AM EST [facility] Name Value Range Interpretation Code Description Data Jeannette rce(s) Supporting Document(s) SARS coronavirus 2 RNA Not Detected [facility] [place] This lab was ordered by [facility] and reported by [facility]. ID Date Data Source [id number] 10/06/2020 11:00:00 AM EST [facility] Name Value Range Interpretation Code Description Data Jeannette rce(s) Supporting Document(s) SARS coronavirus 2 RNA Not Detected [facility] [place] This lab was ordered by [facility] and reported by [facility]. ID Date Data Source [id number] 10/04/2020 07:30:00 AM EST [facility] Name Value Range Interpretation Code Description Data Jeannette rce(s) Supporting Document(s) SARS coronavirus 2 RNA [Presence] in Res piratory specimen by YVONNE with probe detection [facility] This lab was ordered by [facility] a nd reported by [facility]. ID Date Data Source [id number] 10/04/2020 12:00:00 AM EST [facility] Name Value Range Interpretation Code Description Data Jeannette rce(s) Supporting Document(s) SARS-CoV2 Rapid Antigen [facility] This lab was ordered by [facility] and reported by [facility]. ID Date Data Source [id number] 09/29/2020 09:00:00 AM EST [facility] Name Value Range Interpretation Code Description Data Jeannette rce(s) Supporting Document(s) SARS coronavirus 2 RNA [facility] This lab was ordered by [facility] and reported by [facility]. ID Date Data Source [id number] 09/27/2020 09:15:00 AM EST [facility] Name Value Range Interpretation Code Description Data Jeannette rce(s) Supporting Document(s) SARS coronavirus 2 RNA [Presence] in Res piratory specimen by YVONNE with probe detection [facility] This lab was ordered by [facility] a nd reported by [facility]. ID Date Data Source [id number] 09/17/2020 12:30:00 PM EST [facility] Name Value Range Interpretation Code Description Data Jeannette rce(s) Supporting Document(s) SARS coronavirus 2 RNA [facility] This lab was ordered by [facility] and reported by [facility]. ID Date Data Source [id number] 09/15/2020 07:30:00 AM EST [facility] Name Value Range Interpretation Code Description Data Jeannette rce(s) Supporting Document(s) SARS coronavirus 2 RNA [facility] This lab was ordered by [facility] and reported by [facility]. ID Date Data Source [id number] 09/08/2020 06:15:00 AM EST [facility] Name Value Range Interpretation Code Description Data Jeannette rce(s) Supporting Document(s) SARS coronavirus 2 RNA [facility] This lab was ordered by [facility] and reported by [facility]. ID Date Data Source [id number] 08/30/2020 04:59:00 PM EST [facility] Name Value Range Interpretation Code Description Data Jeannette rce(s) Supporting Document(s) SARS coronavirus 2 RNA [Presence] in Res piratory specimen by YVONNE with probe detection [facility] This lab was ordered by [facility] a nd reported by [facility]. ID Date Data Source [id number] 08/25/2020 11:00:00 AM EST [facility] Name Value Range Interpretation Code Description Data Jeannette rce(s) Supporting Document(s) SARS coronavirus 2 RNA [facility] This lab was ordered by [facility] and reported by [facility]. ID Date Data Source LIPID PANEL (CARDIAC RISK) 07/13/2020 07:52:00 AM EDT eCW1 ( [facility]) Name Value Range Interpretation Code Description Data Jeannette rce(s) Supporting Document(s) Triglyceride [Mass/volume] in Serum or Plasma by calculation 164 TRIGLYCERIDES LEVEL eCW1 ([facility]) Cholesterol [Moles/volume] in Serum or Plasma 207 CHOLESTEROL LEVEL eCW1 ([facility]) Cholesterol in LDL [Mass/volume] in Serum or Plasma by calculation 129 LDL CHOLESTEROL eCW1 ([facility]) 162 NON-HDL-C eCW1 ([facility]) Cholesterol in HDL [Moles/volume] in Serum or Plasma 45 HDL CHOLESTEROL eCW1 ([facility]) 4.600 CHOLESTEROL RISK RATIO eCW1 ([facility]) ID Date Data Source TSH 07/13/2020 07:52:00 AM EDT eCW1 ([facility]) Name Value Range Interpretation Code Description Data Jeannette rce(s) Supporting Document(s) 7.520 THYROID STIMULATING HORMONE eC W1 ([facility]) ID Date Data Source ERYTHROCYTE SEDIMENTATION RATE 07/13/2020 07:52:00 AM EDT eC W1 ([facility]) Name Value Range Interpretation Code Description Data Jeannette rce(s) Supporting Document(s) 126 ERYTHROCYTE SEDIMENTATION RATE eCW1 ([facility]) ID Date Data Source C REACTIVE PROTEIN QUANTITATIV (At [facility]) 07/13/2020 07:52 :00 AM EDT eCW1 ([facility]) Name Value Range Interpretation Code Description Data Jeannette rce(s) Supporting Document(s) 5.11 C REACTIVE PROTEIN QUANTITATIV eCW1 ([facility]) ID Date Data Source Comprehensive Metabolic Profile (CMP) 07/13/2020 07:52:00 AM EDT eCW1 ([facility]) Name Value Range Interpretation Code Description Data Jeannette rce(s) Supporting Document(s) 160 GLUCOSE, FASTING eCW1 ([facility]) 2.88 CREATININE FOR GFR eCW1 ([facility]) 54 BLOOD UREA NITROGEN eCW1 ([facility]) 4.3 POTASSIUM SERUM eCW1 ([facility]) 138 SODIUM LEVEL eCW1 ([facility]) 22.5 GLOMERULAR FILTRATION RATE eCW 1 ([facility]) 106 CHLORIDE LEVEL eCW1 ([facility]) 21 CARBON DIOXIDE LEVEL eCW1 ([facility]) 8.7 CALCIUM LEVEL eCW1 ([facility]) 11 AST/SGOT eCW1 ([facility]) 6.5 TOTAL PROTEIN eCW1 ([facility]) 65 ALKALINE PHOSPHATASE eCW1 ([facility]) 10 ALT/SGPT eCW1 ([facility]) 0.2 BILIRUBIN,TOTAL eCW1 ([facility]) 0.7 ALBUMIN/GLOBULIN RATIO eCW1 ([facility]) 2.6 ALBUMIN eCW1 ([facility]) ID Date Data Source CBC with Differential 07/13/2020 07:52:00 AM EDT eCW1 ([facility]) Name Value Range Interpretation Code Description Data Jeannette rce(s) Supporting Document(s) 7.6 WHITE BLOOD COUNT eCW1 ([facility]) 2.30 RED BLOOD COUNT eCW1 ([facility]) 6.1 HEMOGLOBIN eCW1 ([facility]) 20.3 HEMATOCRIT eCW1 ([facility]) 88.3 MEAN CORPUSCULAR VOLUME eCW1 ( [facility]) 26.5 MEAN CORPUSCULAR HEMOGLOBIN eC W1 ([facility]) 30.0 MEAN CORPUSCULAR HGB CONC eCW1 ([facility]) 19.1 RED CELL DISTRIBUTION WIDTH eC W1 ([facility]) 260 PLATELET COUNT, AUTOMATED eCW1 ([facility]) 66.3 NEUTROPHILS % eCW1 ([facility]) 18.9 LYMPH % eCW1 ([facility]) 10.7 MONO % eCW1 ([facility]) 5.1 NEUTROPHILS # eCW1 ([facility]) 1.4 LYMPH # eCW1 ([facility]) 0.3 BASO % eCW1 ([facility]) 3.0 EOS % eCW1 ([facility]) 0.2 EOS # eCW1 ([facility]) 0.8 MONO # eCW1 ([facility]) 0.0 BASO # eCW1 ([facility]) Procedure Social History Code Duration Value Status Description Data Source(s ) Smoking 07/08/2020 12:00:00 AM EDT Former Smoker completed Former Smoker eCW1 ([facility]) Smoking 07/08/2020 12:00:00 AM EDT Former Smoker completed Former Smoker eCW1 ([facility]) Smoking 07/08/2020 12:00:00 AM EDT Former Smoker completed Former Smoker eCW1 ([facility]) Smoking 03/04/2020 12:00:00 AM EDT Former Smoker completed Former Smoker eCW1 ([facility]) Smoking 03/04/2020 12:00:00 AM EDT Former Smoker completed Former Smoker eCW1 ([facility]) Vital Signs ID Date Data Source UNK Name Value Range Interpretation Code Description Data Source(s) Body surface area Derived from formula 1.76 m2 1.76 m2 [facility] ([facility]) Body weight 63.504 kg 63.504 kg [facility] ([facility]) [place] body weight 154 [lb_av] 154 [lb_av] [facility] Body mass index (BMI) [Ratio] 21.3 kg/m2 21.3 k g/m2 [facility] ([facility]) Body weight 140.00 [lb_av[facility] 140.00 [lb_av] [facility] Body height 68 [in_i] 68 [in_i] [facility] ([facility]) 5'8" Diastolic blood pressure 60 mm[Hg] 60 mm[Hg] MEDENT ([facility], ) Systolic blood pressure 120 mm[Hg] 120 mm[Hg] M EDENT ([facility], ) Diastolic blood pressure 72 mm[Hg] 72 mm[Hg] eCW1 ([facility]) Systolic blood pressure 148 mm[Hg] 148 mm[Hg] e CW1 ([facility]) Body temperature 98.6 [degF] 98.6 [degF] eCW1 ( [facility]) Respiratory rate 18 /min 18 /min eCW1 ([facility]) Heart rate 90 /min 90 /min eCW1 ([facility]) Body mass index (BMI) [Ratio] 22.35 kg/m2 22.35 kg/m2 W1 ([facility]) Body height 68 [in_i] 68 [in_i] eCW1 ([facility]) Body weight 147 [lb_av] 147 [lb_av] eCW1 ([facility]) Diastolic blood pressure 75 mm[Hg] 75 mm[Hg] eCW1 ([facility]) Systolic blood pressure 154 mm[Hg] 154 mm[Hg] e CW1 ([facility]) Body temperature 98.7 [degF] 98.7 [degF] eCW1 ( [facility]) Respiratory rate 18 /min 18 /min eCW1 ([facility]) Heart rate 90 /min 90 /min eCW1 ([facility]) Body mass index (BMI) [Ratio] 24.02 kg/m2 24.02 kg/m2 eCW1 ([facility]) Body height 68 [in_i] 68 [in_i] eCW1 ([facility]) Body weight 158 [lb_av] 158 [lb_av] eCW1 ([facility]) Diastolic blood pressure 84 mm[Hg] 84 mm[Hg] eCW1 ([facility]) Systolic blood pressure 188 mm[Hg] 188 mm[Hg] e CW1 ([facility]) Body temperature 98.4 [degF] 98.4 [degF] eCW1 ( [facility]) Respiratory rate 18 /min 18 /min eCW1 ([facility]) Heart rate 75 /min 75 /min eCW1 ([facility]) Body mass index (BMI) [Ratio] 26.15 kg/m2 26.15 kg/m2 eCW1 ([facility]) Body height 68 [in_us] 68 [in_us] eCW1 ([facility]) Body weight Measured 172 [lb_av] 172 [lb_av] eC W1 ([facility])
[2020-10-19] MEDS ORDERED: ACETAMINOPHEN TAB 650MG DOSE (2X325MG) PO PRN (05:30)
[2020-10-19] MEDS ORDERED: PIPERACILLIN/TAZOBACTAM SOD 4.5 GM in D5W MINI-BAG PLUS 50 ML IV SCH (05:30)
--- NOTE | 2020-10-19 05:55 | HPEPDOC ---
[facility] Medical History & Physical Date of Admission Oct 19, 2020 Date of Service: Oct 19, 2020 Attending Physician: Wenceslao Og MD History and Physical CHIEF COMPLAINT: confusion, vomiting HISTORY OF PRESENT ILLNESS: Steve Sosa is an 80 YO M with history of recently resected rectal cancer, bladder outlet obstruction with chronic indwelling sands catheter who presents to ED from [facility] after being found obtunded and unresponsive with vomit in his bed. Per [facility] nursing, patient was alert and oriented and joking with the staff prior to bed yesterday evening. He was found at approximately 0120 with vomit on his pillowcase. He was responsive to voice, opening his eyes but did not converse. Upon arrival to the ED it was noted that the patient had cloudy urine in his existing Sands and bright red blood coming from his rectum. He was also found to be febrile with a rectal temperature of 103.1. Per ED MD, the patient's mental status somewhat improved with IV fluids. The patient is only minimally responsive to questions when I enter the room. PAST MEDICAL HISTORY: HTN Hx DVT in RLE 2012 Rectal cancer with rectal obstruction s/p laparoscopy with end-colostomy Bladder outlet obstruction with chronic indwelling sands catheter Hx pulmonary nodules B12 deficiency Small vessel cerebrovascular disease CKD 3 Gastric polyps Adenomyomatosis of the gallbladder Kidney and liver cysts Subclinical hypothyroidism PAST SURGICAL HISTORY: Laparoscopy and end-colostomy 08/2020 SOCIAL HISTORY: Daughter looks after him Quit smoking in 2013 Lives in [facility] FAMILY HISTORY: Grandfather, colon cancer ALLERGIES: Please see below. REVIEW OF SYSTEMS: Unable to obtain due to patient's confusion HOME MEDICATIONS: Please see below. PHYSICAL EXAMINATION: VITAL SIGNS: see below GENERAL: minimally responsive, eyes wide open but not tracking, arousable but lethargic HEENT: PERRL, EOMI, Oral mucous membranes dry with vomitus inside mouth NECK: The patient has no noted JVD. No adenopathy is appreciated. No thyromegaly CHEST/LUNGS: There are decreased breath sounds bilaterally with left worse than right. Some rhonchi are appreciated in the RLL. There is no subcutaneous air appreciated. There is no tenderness to the chest wall. HEART: Regular rate and rhythm. No murmurs, rubs, or gallops are appreciated. Distal pulses are 1+. ABDOMEN: Soft, nontender, and nondistended. Bowel sounds are positive. Colostomy bag is present in the left lower quadrant with brownish liquid stool. No organomegaly is appreciated. No masses are appreciated. There are no peritoneal signs. There is no Barnard sign. EXTREMITIES: 1+ pitting edema up to the ankles. There is no focal long bone tenderness or deformity. SKIN: Scattered bruises on both upper and lower extremities PSYCHIATRIC: unable to assess NEUROLOGIC: Strength 5/5 in all 4 extremities, unable to perform the rest of the neurologic exam as patient not following commands LABORATORY DATA: See below. IMAGING: CT HEAD: FINDINGS: Brain: Cerebral volume loss and chronic white matter changes. Chronic basal ganglia lacunar infarctions are not significantly changed. No intracranial hemorrhage. No midline shift or herniation. Cerebral ventricles: No ventriculomegaly. Bones/joints: Unremarkable. No acute fracture. Paranasal sinuses: Visualized sinuses are unremarkable. No fluid levels. Mastoid air cells: Visualized mastoid air cells are well aerated. Soft tissues: Unremarkable. IMPRESSION: 1. Cerebral volume loss and chronic white matter changes. 2. No acute intracranial abnormality. CXR: FINDINGS: Lungs: Left greater than right basilar airspace consolidation. Pleural space: No pleural effusion. No pneumothorax. Heart/Mediastinum: Unremarkable. No cardiomegaly. Bones/joints: Unremarkable. Intraperitoneal space: There is pneumoperitoneum under the right hemidiaphragm. Gastrointestinal tract: Mild gaseous distention of visualized bowel in the upper abdomen. IMPRESSION: 1. Pneumoperitoneum. 2. Bibasilar pneumonia, worse on the left. 3. Gaseous distention of visualized bowel in the upper abdomen. CHEST CT: FINDINGS: Lungs: There is multifocal airspace consolidation in both lungs, worse on the left. Pleural space: Small left pleural effusion. No pneumothorax. Heart: Normal heart size. Mild coronary artery atherosclerotic disease. Aorta: Unremarkable. No aortic aneurysm. Lymph nodes: Unremarkable. No enlarged lymph nodes. Bones/joints: Skeletal degenerative changes are noted. Soft tissues: Unremarkable. IMPRESSION: 1. Bilateral pneumonia, worse on the left. 2. Small left pleural effusion. 3. Coronary artery disease. CT ABD/PEL: IMPRESSION: 1. Mild distention of the colon proximal to the ostomy. Wall thickening in the splenic flexure may be an artifact related to nondistention. No proximal colonic obstruction is seen. 2. Worsening fluid dilation of the colon distal to the left lower quadrant suture line. 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 3. No pneumoperitoneum or abscess. 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 4. Thick-walled urinary bladder suggesting cystitis. Hydronephrosis has resolved. MICROBIOLOGY: Please see below. ASSESSMENT: This is an 80 YO M with history of recently diagnosed rectal cancer s/p colostomy and bladder outlet obstruction requiring chronic indwelling sands who presents from [facility] after being found obtunded, unresponsive with vomitus on his pillow. Imaging is concerning for bilateral pneumonia. PLAN: 1. Sepsis: likely 2/2 PNA -Temp 101.3, HR 122, RR 30, Lactic acidosis, suspected source -Empiric Vancomycin/Zosyn for now -Pending MRSA screen -NS 150cc/hr -Initial lactic acid found to be 6.7, Repeat Lactic acid in 4 hr 2. Acute hypoxic respiratory failure 2/2 bilateral pneumonia: -Respiratory panel negative -AB.229/19.6/59 -Empiric antibiotics as stated above -procalcitonin, CRP, sputum culture, Legionella, urine strep pending 3. OMAR on CKD III: -Cr found to be 2.09 -Difficult to determine baseline Cr, but appears to be 1.5 -Urine lytes ordered 4. Chronic indwelling sands: -Nursing notes urine was cloudy on admission -UA positive for possible UTI although patient may be chronically colonized due to his chronic sands -Covered with empiric antibiotics as above 5. Recent vomiting: -NPO for now -Aspiration precautions, elevate head of bed DVT ppx: SQH DISPO:Pending clinical improvement. Patient is DNR/DNI Vital Signs Vital Signs Date Time Temp Pulse Resp B/P (MAP) Pulse Ox O2 Delivery O2 Flow Rate FiO2 10/19/20 04:25 97 95 10/19/20 04:15 110/55 (73) 10/19/20 02:52 103.1 30 Nasal Cannula 4.0 Laboratory Data Labs 24H Laboratory Tests 2 10/19/20 02:41: Urine Color FITO, Urine Appearance TURBIDH, Urine pH 5.0, Urine Specific Oakley 1.021, Urine Protein 2+H, Urine Glucose (UA) 1+H, Urine Ketones NEGATIVE, Urine Blood 3+H, Urine Nitrite NEGATIVE, Urine Bilirubin NEGATIVE, Urine Urobilinogen 0.2, Urine Leukocyte Esterase 2+H, Urine WBC (Auto) TNTCH, Urine RBC (Auto) 145H, Urine Hyaline Casts (Auto) 37, Urine Bacteria (Auto) 2+H, Urine Squamous Epithelial Cells 3, Urine Granular Casts (Auto) 12, Urine Mucus (Auto) LARGE, Urine Sperm (Auto) 10/19/20 02:43: Neutrophils (%) (Auto) , Nucleated Red Blood Cells % (auto) 0.0, Neutrophils 35, Band Neutrophils 26H, Lymphocytes (Manual) 16, Monocytes (Manual) 2, Metamyelocytes 18H, Myelocytes 2H, Atypical Lymphocytes 1, Polychromasia 1+, Anisocytosis 2+, Platelet Estimate NORMAL, Anion Gap 14, Glomerular Filtration Rate 32.5L, Lactic Acid Level 6.7*H, Calcium Level 9.2, Total Bilirubin 0.4, Direct Bilirubin 0.2, Aspartate Amino Transf (AST/SGOT) 15, Alanine Aminotransferase (ALT/SGPT) 12, Alkaline Phosphatase 77, Total Creatine Kinase 40, Creatine Kinase MB 1.8, Creatine Kinase MB Relative Index 4.50H, Troponin I 0.05, Total Protein 5.9L, Albumin 1.9L, Albumin/Globulin Ratio 0.5, Thyroid Stimulating Hormone (TSH) 4.480H 10/19/20 03:16: Bedside Glucose (Misc Panel) 132H 10/19/20 04:14: Blood Gas Bicarbonate Standard 12.5L, Arterial Blood pH 7.299L, Arterial Blood Partial Pressure CO2 19.6*L, Arterial Blood Partial Pressure O2 59.0L, Arterial Blood Total CO2 10.0L, Arterial Blood HCO3 9.4L, Arterial Blood Base Excess - 15.2L, Arterial Blood Oxygen Saturation 87.6L CBC/BMP Laboratory Tests 10/19/20 02:43 Microbiology Microbiology 10/19/20 Respiratory Virus Panel (PCR) ([facility]) - Final, Complete 10/19/20 Blood Culture, Received Pending 10/19/20 Blood Culture, Received Pending 10/19/20 Urine Culture, Received Pending Home Medications Scheduled Cyanocobalamin (Vitamin B-12) (B-12) 1,000 Mcg Tablet, 1,000 MCG PO DAILY Duloxetine Hcl (Duloxetine HCl) 60 Mg Capsule.dr, 60 MG PO DAILY Lactose-Reduced Food (Ensure Enlive) 237 Ml Liquid, 237 ML PO TID 0900, 1300, 2000 Mirtazapine (Remeron) 15 Mg Tablet, 15 MG PO QHS Sennosides/Docusate Sodium (Senna Plus Tablet) 1 Each Tablet, 2 TAB PO DAILY Scheduled PRN Acetaminophen (Tylenol Extra Strength) 500 Mg Tablet, 500 MG PO Q6H PRN for PAIN Ibuprofen (Ibuprofen) 200 Mg Tablet, 400 MG PO Q6H PRN for PAIN OR DISCOMFORT Milk Of Magnesia (Milk of Magnesia) 2,400 Mg/10 Ml Oral.susp, 10 ML PO DAILY PRN for CONSTIPATION Allergies Coded Allergies: sulfamethoxazole (Verified Allergy, Unknown, 09/14/20) A-FIB/CHADSVASC A-FIB History Current/History of A-Fib/PAF?: No Current PO Anticoag Therapy: No GME ATTESTATION ATTENDING NOTE Family Medicine Attending Note: I was present on site to supervise Hailey Barros DO (PGY-3). We discussed the history and exam. I confirmed the sunshine el ements during my [id number] encounter with the patient. We conferred on the assessment and plan; I agree with the note as documented. 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
--- OUTSIDE RECORDS SUMMARY | 2020-10-19 06:36 | CCD ---
Author Author [facility] Organization [facility] Address Unknown Phone Unavailable Care Team Providers Care Biscuit Maker Name Role Phone WATSON, BENITO Unavailable Unavailable [...] is protected by Article 27-F of the [facility] Public Health law. If you continue you may have access to information: Regarding HIV / AIDS; Provided by facilities licensed or operated by the [facility] Office of Mental Health; or Provided by the [facility] Office for People With Developmental Disabilities. If such information is present, then the following [facility] mandated warning applies: This information has been [...] law may result in a fine or long-term sentence or both. A general authorization for the release of medical or other information is NOT sufficient authorization for further disc losure. Allergies and Adverse Reactions Type Description Substance Reaction Status Data Source(s ) Drug allergy Amlodipine Amlodipine Unknown Active eCW1 (Formerly [facility]) Family History Family Member Name Family Member Gender Family Member Status Date o f Status Description Data Source(s) Unknown Unknown Problem MEDENT ([facility]) Encounters Encounter Providers Location Date Indications Data Source(s ) [place] [address] [address] 07/28/2020 12:00:00 AM EDT eCW1 (Formerly [facility]) [place] [address] [address] 07/13/2020 12:00:00 AM EDT eCW1 ([facility]ly [facility]) [place] [address] [address] 07/08/2020 12:00:00 AM EDT eCW1 ([facility]) [place] [address] [address] 03/04/2020 12:00:00 AM EDT eCW1 ([facility]) [place] [address] [address] 03/04/2020 12:00:00 AM EDT eCW1 (Formerly [facility]) [facility] [address] [address] 11/04/2019 12:00:00 AM EST eCW1 (Formerly [facility]) Outpatient Referrer: BENITO WATSON 08/26/2019 09:55:00 P M EST [facility] Immunizations Vaccine Date Status Description Data Source(s) influenza, recombinant, quadrIvalent,injectable, prese rvative free 07/08/2020 02:50:00 PM EDT completed eCW1 (Formerly [facility]) influenza, recombinant, quadrIvalent,injectable, prese rvative free 07/08/2020 02:50:00 PM EDT completed eCW1 ([facility]) influenza, recombinant, quadrIvalent,injectable, prese rvative free 07/08/2020 02:50:00 PM EDT completed eCW1 ([facility]) Tdap 11/04/2019 03:14:00 PM EST completed e CW1 ([facility]) Tdap 11/04/2019 03:14:00 PM EST completed e CW1 ([facility]) Tdap 11/04/2019 03:14:00 PM EST completed e CW1 ([facility]) Tdap 11/04/2019 03:14:00 PM EST completed e CW1 ([facility]) Tdap 11/04/2019 03:14:00 PM EST completed e CW1 ([facility]) Tdap 11/04/2019 03:14:00 PM EST completed e CW1 ([facility]) Medications Medication Brand Name Start Date [...] type / Coverage type Policy ID Covered constitution party ID Covered constitution party's relationship to max Policy Max Plan Information MEDICARE [id number] SP [id number] [facility] [id number] SP [id number] [employer] [id number] SP [id number] MEDICARE C [id number] S [id number] AARP O [id number] S [id number] ANSI-Commercial [id number] ANSI-Medicare Part B [id number] ANSI-Commercial [id number] ANSI-Medicare Part B [id number] ANSI-Commercial [id number] ANSI-Medicare Part B [id number] ANSI-Medicare Part B [id number] ANSI-Commercial [id number] ANSI-Medicare Part B [id number] ANSI-Commercial [id number] ANSI-Commercial [id number] ANSI-Medicare Part B [id number] ANSI-Medicare Part B [id number] ANSI-Commercial [id number] MEDICARE [id number] SP [id number] A [facility] Options Medigap Part B Self Medicare [facility] Medicare Primary Self MEDICARE C [id number] S [id number] A [employer] [id number] SP [id number] AARP S UNAVAILABLE S UNAVAILA BLE MEDICARE P UNAVAILABLE S UNAVAILA BLE MEDICARE -O/P [id number] Problems, Conditions, and Diagnoses Code Display Name Description Problem Type Effective Dates Data Source(s) 45020259 Essential hypertension Essential hypertension Problem 07/28/2020 12:00:00 AM EDT MEDENT ([facility] ) N18.3 [id number] CKD (chronic kidney disease) stage 3, GFR 30-59 ml/min Problem 11/04/2019 12:00:00 AM EST eCW1 ([facility]) N18.3 [id number] CKD (chronic kidney disease), stage III P roblem 11/04/2019 12:00:00 AM EST eCW1 ([facility]) N18.3 [id number] CKD (chronic kidney disease), stage III P roblem 11/04/2019 12:00:00 AM EST eCW1 ([facility]) Surgeries/Procedures Procedure Description Date Indications Data Source(s) Colonoscopy Flexible Proximal To Splenic Flexure W/Biopsy Si ngle/ 07/15/2020 12:00:00 AM EDT MEDENT ([facility]) Immunization: Flublok Quadrivalent (18 years & older) 0.5mL IM (Influenza) 07/08/2020 12:00:00 AM EDT eCW1 ([facility]) Office Visit, Est Pt., Level 3 PC 11/04/2019 12:00:00 AM EST eCW1 ([facility]) Office Visit, Est Pt., Level 3 FC 11/04/2019 12:00:00 AM EST eCW1 ([facility]) TDAP 0.5mL ([facility]) 11/04/2019 12:00:00 AM EST eCW1 ([facility]) IMMUNIZATION ADMIN 11/04/2019 12:00:00 AM EST eCW1 ([facility]) Results ID Date Data Source [id number] 10/13/2020 09:00:00 AM EST [facility] Name Value Range Interpretation Code Description Data Jeannette rce(s) Supporting Document(s) SARS coronavirus 2 RNA Not Detected [facility] [place] This lab was ordered by [facility] and reported by [facility]. ID Date Data Source [id number] 10/06/2020 11:00:00 AM EST [facility] Name Value Range Interpretation Code Description Data Jeannette rce(s) Supporting Document(s) SARS coronavirus 2 RNA Not Detected [facility] [place] This lab was ordered by [facility] and reported by [facility]. ID Date Data Source [id number] 10/04/2020 07:30:00 AM EST [facility] Name Value Range Interpretation Code Description Data Jeannette rce(s) Supporting Document(s) SARS coronavirus 2 RNA [Presence] in Res piratory specimen by YVONNE with probe detection [facility] This lab was ordered by [facility] a nd reported by [facility]. ID Date Data Source [id number] 10/04/2020 12:00:00 AM EST [facility] Name Value Range Interpretation Code Description Data Jeannette rce(s) Supporting Document(s) SARS-CoV2 Rapid Antigen [facility] This lab was ordered by [facility] and reported by [facility]. ID Date Data Source [id number] 09/29/2020 09:00:00 AM EST [facility] Name Value Range Interpretation Code Description Data Jeannette rce(s) Supporting Document(s) SARS coronavirus 2 RNA [facility] This lab was ordered by [facility] and reported by [facility]. ID Date Data Source [id number] 09/27/2020 09:15:00 AM EST [facility] Name Value Range Interpretation Code Description Data Jeannette rce(s) Supporting Document(s) SARS coronavirus 2 RNA [Presence] in Res piratory specimen by YVONNE with probe detection [facility] This lab was ordered by [facility] a nd reported by [facility]. ID Date Data Source [id number] 09/17/2020 12:30:00 PM EST [facility] Name Value Range Interpretation Code Description Data Jeannette rce(s) Supporting Document(s) SARS coronavirus 2 RNA [facility] This lab was ordered by [facility] and reported by [facility]. ID Date Data Source [id number] 09/15/2020 07:30:00 AM EST [facility] Name Value Range Interpretation Code Description Data Jeannette rce(s) Supporting Document(s) SARS coronavirus 2 RNA [facility] This lab was ordered by [facility] and reported by [facility]. ID Date Data Source [id number] 09/08/2020 06:15:00 AM EST [facility] Name Value Range Interpretation Code Description Data Jeannette rce(s) Supporting Document(s) SARS coronavirus 2 RNA [facility] This lab was ordered by [facility] and reported by [facility]. ID Date Data Source [id number] 08/30/2020 04:59:00 PM EST [facility] Name Value Range Interpretation Code Description Data Jeannette rce(s) Supporting Document(s) SARS coronavirus 2 RNA [Presence] in Res piratory specimen by YVONNE with probe detection [facility] This lab was ordered by [facility] a nd reported by [facility]. ID Date Data Source [id number] 08/25/2020 11:00:00 AM EST [facility] Name Value Range Interpretation Code Description Data Jeannette rce(s) Supporting Document(s) SARS coronavirus 2 RNA [facility] This lab was ordered by [facility] and reported by [facility]. ID Date Data Source LIPID PANEL (CARDIAC RISK) 07/13/2020 07:52:00 AM EDT eCW1 ( [facility]) Name Value Range Interpretation Code Description Data Jeannette rce(s) Supporting Document(s) Triglyceride [Mass/volume] in Serum or Plasma by calculation 164 TRIGLYCERIDES LEVEL eCW1 ([facility]) Cholesterol [Moles/volume] in Serum or Plasma 207 CHOLESTEROL LEVEL eCW1 ([facility]) Cholesterol in LDL [Mass/volume] in Serum or Plasma by calculation 129 LDL CHOLESTEROL eCW1 ([facility]) 162 NON-HDL-C eCW1 ([facility]) Cholesterol in HDL [Moles/volume] in Serum or Plasma 45 HDL CHOLESTEROL eCW1 ([facility]) 4.600 CHOLESTEROL RISK RATIO eCW1 ([facility]) ID Date Data Source TSH 07/13/2020 07:52:00 AM EDT eCW1 ([facility]) Name Value Range Interpretation Code Description Data Jeannette rce(s) Supporting Document(s) 7.520 THYROID STIMULATING HORMONE eC W1 ([facility]) ID Date Data Source ERYTHROCYTE SEDIMENTATION RATE 07/13/2020 07:52:00 AM EDT eC W1 ([facility]) Name Value Range Interpretation Code Description Data Jeannette rce(s) Supporting Document(s) 126 ERYTHROCYTE SEDIMENTATION RATE eCW1 ([facility]) ID Date Data Source C REACTIVE PROTEIN QUANTITATIV (At [facility]) 07/13/2020 07:52 :00 AM EDT eCW1 ([facility]) Name Value Range Interpretation Code Description Data Jeannette rce(s) Supporting Document(s) 5.11 C REACTIVE PROTEIN QUANTITATIV eCW1 ([facility]) ID Date Data Source Comprehensive Metabolic Profile (CMP) 07/13/2020 07:52:00 AM EDT eCW1 ([facility]) Name Value Range Interpretation Code Description Data Jeannette rce(s) Supporting Document(s) 160 GLUCOSE, FASTING eCW1 ([facility]) 2.88 CREATININE FOR GFR eCW1 ([facility]) 54 BLOOD UREA NITROGEN eCW1 ([facility]) 4.3 POTASSIUM SERUM eCW1 ([facility]) 138 SODIUM LEVEL eCW1 ([facility]) 22.5 GLOMERULAR FILTRATION RATE eCW 1 ([facility]) 106 CHLORIDE LEVEL eCW1 ([facility]) 21 CARBON DIOXIDE LEVEL eCW1 ([facility]) 8.7 CALCIUM LEVEL eCW1 ([facility]) 11 AST/SGOT eCW1 ([facility]) 6.5 TOTAL PROTEIN eCW1 ([facility]) 65 ALKALINE PHOSPHATASE eCW1 ([facility]) 10 ALT/SGPT eCW1 ([facility]) 0.2 BILIRUBIN,TOTAL eCW1 ([facility]) 0.7 ALBUMIN/GLOBULIN RATIO eCW1 ([facility] hospital) 2.6 ALBUMIN eCW1 ([facility]ly [facility]) ID Date Data Source CBC with Differential 07/13/2020 07:52:00 AM EDT eCW1 ([facility]) Name Value Range Interpretation Code Description Data Jeannette rce(s) Supporting Document(s) 7.6 WHITE BLOOD COUNT eCW1 ([facility]) 2.30 RED BLOOD COUNT eCW1 ([facility]) 6.1 HEMOGLOBIN eCW1 ([facility]) 20.3 HEMATOCRIT eCW1 ([facility]) 88.3 MEAN CORPUSCULAR VOLUME eCW1 ( [facility]) 26.5 MEAN CORPUSCULAR HEMOGLOBIN eC W1 ([facility]) 30.0 MEAN CORPUSCULAR HGB CONC eCW1 ([facility]) 19.1 RED CELL DISTRIBUTION WIDTH eC W1 ([facility]) 260 PLATELET COUNT, AUTOMATED eCW1 ([facility]) 66.3 NEUTROPHILS % eCW1 ([facility]) 18.9 LYMPH % eCW1 ([facility]) 10.7 MONO % eCW1 ([facility]) 5.1 NEUTROPHILS # eCW1 ([facility]) 1.4 LYMPH # eCW1 ([facility]) 0.3 BASO % eCW1 ([facility]) 3.0 EOS % eCW1 ([facility]) 0.2 EOS # eCW1 ([facility]) 0.8 MONO # eCW1 ([facility]) 0.0 BASO # eCW1 ([facility]) Procedure Social History Code Duration Value Status Description Data Source(s ) Smoking 07/08/2020 12:00:00 AM EDT Former Smoker completed Former Smoker eCW1 ([facility]) Smoking 07/08/2020 12:00:00 AM EDT Former Smoker completed Former Smoker eCW1 ([facility]) Smoking 07/08/2020 12:00:00 AM EDT Former Smoker completed Former Smoker eCW1 ([facility]) Smoking 03/04/2020 12:00:00 AM EDT Former Smoker completed Former Smoker eCW1 ([facility]) Smoking 03/04/2020 12:00:00 AM EDT Former Smoker completed Former Smoker eCW1 ([facility]) Vital Signs ID Date Data Source UNK Name Value Range Interpretation Code Description Data Source(s) Body surface area Derived from formula 1.76 m2 1.76 m2 [facility] ([facility]) Body weight 63.504 kg 63.504 kg [facility] ([facility]) [place] body weight 154 [lb_av] 154 [lb_av] [facility] Body mass index (BMI) [Ratio] 21.3 kg/m2 21.3 k g/m2 [facility] ([facility]) Body weight 140.00 [lb_av] 140.00 [lb_av] [facility] Body height 68 [in_i] 68 [in_i] [facility] ([facility]) 5'8" Diastolic blood pressure 60 mm[Hg] 60 mm[Hg] MEDENT ([facility] ) Systolic blood pressure 120 mm[Hg] 120 mm[Hg] M EDENT ([facility], ) Diastolic blood pressure 72 mm[Hg] 72 mm[Hg] eCW1 ([facility]) Systolic blood pressure 148 mm[Hg] 148 mm[Hg] e CW1 ([facility]) Body temperature 98.6 [degF] 98.6 [degF] eCW1 ( [facility]) Respiratory rate 18 /min 18 /min eCW1 ([facility]) Heart rate 90 /min 90 /min eCW1 ([facility]) Body mass index (BMI) [Ratio] 22.35 kg/m2 22.35 kg/m2 W1 ([facility]) Body height 68 [in_i] 68 [in_i] eCW1 ([facility]) Body weight 147 [lb_av] 147 [lb_av] eCW1 ([facility]) Diastolic blood pressure 75 mm[Hg] 75 mm[Hg] eCW1 ([facility]) Systolic blood pressure 154 mm[Hg] 154 mm[Hg] e CW1 ([facility]) Body temperature 98.7 [degF] 98.7 [degF] eCW1 ( [facility]) Respiratory rate 18 /min 18 /min eCW1 ([facility]) Heart rate 90 /min 90 /min eCW1 ([facility]) Body mass index (BMI) [Ratio] 24.02 kg/m2 24.02 kg/m2 eCW1 ([facility]) Body height 68 [in_i] 68 [in_i] eCW1 ([facility]) Body weight 158 [lb_av] 158 [lb_av] eCW1 ([facility]) Diastolic blood pressure 84 mm[Hg] 84 mm[Hg] eCW1 ([facility]) Systolic blood pressure 188 mm[Hg] 188 mm[Hg] e CW1 ([facility]) Body temperature 98.4 [degF] 98.4 [degF] eCW1 ( [facility]) Respiratory rate 18 /min 18 /min eCW1 ([facility]) Heart rate 75 /min 75 /min eCW1 ([facility]) Body mass index (BMI) [Ratio] 26.15 kg/m2 26.15 kg/m2 eCW1 ([facility]) Body height 68 [in_us] 68 [in_us] eCW1 ([facility]) Body weight Measured 172 [lb_av] 172 [lb_av] eC W1 ([facility])
[2020-10-19] MEDS: NS 1,000 ML IV SCH ×3 (07:29→21:23)
--- NOTE | 2020-10-19 08:19 | ECGEPIP ---
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
--- NOTE | 2020-10-19 12:49 | IPNPDOC ---
Text Note Date of Service The patient was seen on 10/19/20. NOTE SUBJECTIVE: -Hypotensive to SBP 60s this AM --> given 3rd 1L bolus while maintaining 150cc/hr PHYSICAL EXAMINATION: VITAL SIGNS: see below. SBP 60s GENERAL: Arousable but lethargic HEENT: PERRLA, EOMI, dry MM NECK: Supple, no noted JVD CHEST/LUNGS:Decreased breath sounds bilaterally with left worse than right with some crackles and rhonchi bilaterally HEART: Regular rate and rhythm. No murmurs, rubs, or gallops are appreciated. ABDOMEN: Normoactive bowel sounds, soft, nontender, and nondistended. Colostomy bag is present in the left lower quadrant with brown liquid stool. Negative Reynolds's. no rebound or involuntary guarding EXTREMITIES: 2+ pitting edema up to the ankles. WWP SKIN: Scattered bruises on both upper and lower extremities NEUROLOGIC: Lethargic, moving all extremities, no facial asymmetry LABORATORY DATA: reviewed WBC 8.2 lactate was 6.7 UA was +++ hgb 11 platelets 235 Bicarb 13 Cr 2.09 IMAGING: CT HEAD: FINDINGS: Brain: Cerebral volume loss and chronic white matter changes. Chronic basal ganglia lacunar infarctions are not significantly changed. No intracranial hemorrhage. No midline shift or herniation. Cerebral ventricles: No ventriculomegaly. Bones/joints: Unremarkable. No acute fracture. Paranasal sinuses: Visualized sinuses are unremarkable. No fluid levels. Mastoid air cells: Visualized mastoid air cells are well aerated. Soft tissues: Unremarkable. IMPRESSION: 1. Cerebral volume loss and chronic white matter changes. 2. No acute intracranial abnormality. CXR: FINDINGS: Lungs: Left greater than right basilar airspace consolidation. Pleural space: No pleural effusion. No pneumothorax. Heart/Mediastinum: Unremarkable. No cardiomegaly. Bones/joints: Unremarkable. Intraperitoneal space: There is pneumoperitoneum under the right hemidiaphragm. Gastrointestinal tract: Mild gaseous distention of visualized bowel in the upper abdomen. IMPRESSION: 1. Pneumoperitoneum. 2. Bibasilar pneumonia, worse on the left. 3. Gaseous distention of visualized bowel in the upper abdomen. CHEST CT: FINDINGS: Lungs: There is multifocal airspace consolidation in both lungs, worse on the left. Pleural space: Small left pleural effusion. No pneumothorax. Heart: Normal heart size. Mild coronary artery atherosclerotic disease. Aorta: Unremarkable. No aortic aneurysm. Lymph nodes: Unremarkable. No enlarged lymph nodes. Bones/joints: Skeletal degenerative changes are noted. Soft tissues: Unremarkable. IMPRESSION: 1. Bilateral pneumonia, worse on the left. 2. Small left pleural effusion. 3. Coronary artery disease. CT ABD/PEL: IMPRESSION: 1. Mild distention of the colon proximal to the ostomy. Wall thickening in the splenic flexure may be an artifact related to nondistention. No proximal colonic obstruction is seen. 2. Worsening fluid dilation of the colon distal to the left lower quadrant suture line. Stable appearance of irregular circumferential mass in the rectum with sinus tract extending to the right change number operator internus muscle. 3. No pneumoperitoneum or abscess. 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 4. Thick-walled urinary bladder suggesting cystitis. Hydronephrosis has resolved. MICROBIOLOGY: Please see below. 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 PLAN: 1. Sepsis, bordering septic shock: 2/2 bilateral multifocal PNA and possible CAUTI -Temp 101.3, HR 122, RR 30, Lactic acidosis, suspected source -continue Vancomycin/Zosyn for now -f/u MRSA screen -1 more liter of NS bolus for hypotension and continue NS 150cc/hr -Initial lactic acid found to be 6.7, f/u repeat Lactic acid -aspiration precautions -resp panel was negative -supplemental O2 -will transfer to ICU with low MAP, with goal >65, may require TLC and pressors. 2. Acute hypoxic respiratory failure 2/2 bilateral pneumonia: -Respiratory panel negative -AB.229/19.6/59 -Empiric antibiotics as stated above -procalcitonin, CRP, sputum culture, Legionella, urine strep pending 3. OMAR on CKD III: -Cr found to be 2.09 -Difficult to determine baseline Cr, but appears to be 1.5 -Urine lytes ordered -receiving aggressive fluids, f/u repeat BMP 4. Chronic indwelling sands with possible CAUTI: -Nursing notes urine was cloudy on admission -UA positive for possible UTI although patient may be chronically colonized due to his chronic sands -Covered with empiric antibiotics as above 5. Recent vomiting with ongoing lethargy: -NPO for now -Aspiration precautions, elevate head of bed 6. Lethargy likely metabolic encephalopathy i/s/o sepsis -CT head without acute pathology -septic --> tx as noted above DVT ppx: SQH DISPO:Pending clinical improvement. Patient is DNR/DNI VS,Fishbone, I+O VS, Fishbone, I+O Laboratory Tests 10/19/20 02:43 Vital Signs Date Time Temp Pulse Resp B/P (MAP) Pulse Ox O2 Delivery O2 Flow Rate FiO2 10/19/20 08:33 83/52 (62) 10/19/20 08:30 85 93 10/19/20 06:42 100.3 10/19/20 02:52 30 Nasal Cannula 4.0 I&O- Last 24 Hours up to 6 AM 10/19/20 06:00 Intake Total 1270 ml Balance 1270 ml SARWAT BROOKE MD Oct 19, 2020 08:57
[2020-10-19] MEDS: PIPERACILLIN/TAZOBACTAM SOD 3.375 GM in D5W MINI-BAG PLUS 50 ML IV SCH ×3 (13:36→22:16)
[2020-10-19] MEDS: HEPARIN SOD (PORCINE) 5000UNITS/ML 1ML VIAL/SYRINGE SC SCH ×2 (14:38→21:22)
[2020-10-19] MEDS: IPRATROPIUM 0.5MG/ALBUTEROL 2.5MG INH SOL UD 3ML (DUONEB) INH SCH ×2 (15:36→19:32)
--- NOTE | 2020-10-19 18:05 | REP ---
INDICATION: line placement. 5:49 p.m. film. COMPARISON: Comparison chest x-ray 19 October 2022 20 a.m.. TECHNIQUE: Portable upright AP chest radiograph. 5:49 p.m. film FINDINGS: A left subclavian line is been passed with its tip in the expected location of the superior vena cava. There is no evidence of pneumothorax. A skin fold is seen overlying the right chest. Interstitial infiltrates are again noted in the left perihilar region, left base, and right base medially. Oxygen delivery tubing and monitoring electrodes are seen.. IMPRESSION: Left perihilar and bibasilar infiltrates unchanged. Left subclavian line it appears in good position. No complication is seen.. <Electronically signed by Doe Solorio > 10/19/20 [id number]
[2020-10-19] MEDS: VANCOMYCIN HCL 1,000 MG, VIAL MATE ADAPTER 1 EACH in D5W 250 ML IV SCH (23:52)
[2020-10-20] VITALS (15 sets, daily range): BP systolic 102–143; BP diastolic 56–67
[2020-10-20 03:12] LABS: CALCIUM LEVEL 7.8 MG/DL (8.8-10.2); CREATININE FOR GFR 1.68 MG/DL (0.70-1.30); GLOMERULAR FILTRATION RATE 41.9 (>35); POTASSIUM SERUM 2.7 MEQ/L (3.5-5.1)
[2020-10-20] MEDS ORDERED: SODIUM CHLORIDE 0.9% 1000ML IV ONE ×2 (03:30→04:30)
[2020-10-20] MEDS: IPRATROPIUM 0.5MG/ALBUTEROL 2.5MG INH SOL UD 3ML (DUONEB) INH SCH ×6 (03:51→20:06)
[2020-10-20] MEDS: KCL 20MEQ IN 100ML SWI (KRUN) 20 MEQ in IV 1 EA IV SCH ×10 (03:54→11:04)
[2020-10-20] MEDS: PIPERACILLIN/TAZOBACTAM SOD 3.375 GM in D5W MINI-BAG PLUS 50 ML IV SCH ×4 (04:46→22:09)
[2020-10-20] MEDS: NS 1,000 ML IV SCH (05:26)
[2020-10-20 06:22] LABS: HEMATOCRIT 27.9 % (42.0-52.0); MEAN CORPUSCULAR HEMOGLOBIN 30.7 pg (27.0-33.0); MEAN CORPUSCULAR HGB CONC 32.3 g/dl (32.0-36.5); MEAN CORPUSCULAR VOLUME 95.2 fl (80.0-96.0); PLATELET COUNT, AUTOMATED 216 10^3/uL (150-450); RED BLOOD COUNT 2.93 10^6/uL (4.30-6.10); WHITE BLOOD COUNT 15.1 10^3/uL (4.0-10.0)
[2020-10-20 06:53] LABS: ALBUMIN 1.6 GM/DL (3.2-5.2); BILIRUBIN,TOTAL 0.3 MG/DL (0.2-1.0); CALCIUM LEVEL 7.8 MG/DL (8.8-10.2); CREATININE FOR GFR 1.64 MG/DL (0.70-1.30); MAGNESIUM LEVEL 1.2 MG/DL (1.8-2.4); POTASSIUM SERUM 3.3 MEQ/L (3.5-5.1); TOTAL PROTEIN 4.6 GM/DL (6.4-8.2)
[2020-10-20] MEDS: MAG SULF 1GM/100ML (MAG RUN) 1 GM in IV 1 EA IV SCH ×3 (07:57→11:05)
[2020-10-20] MEDS: HEPARIN SOD (PORCINE) 5000UNITS/ML 1ML VIAL/SYRINGE SC SCH ×2 (07:57→22:09)
[2020-10-20] MEDS: KCL 20MEQ IN 0.45NS 1000ML 1,000 ML IV SCH ×2 (08:45→16:18)
[2020-10-20 09:08] LABS: PHOSPHORUS LEVEL 3.6 MG/DL (2.5-4.9)
--- NOTE | 2020-10-20 12:42 | ROOPDOC ---
[facility] Report Of Operation Report of Operation DATE OF PROCEDURE: 10/19/20 PREPROCEDURE DIAGNOSES: sepsis, need for IV access. POSTPROCEDURE DIAGNOSES: sespsis, pneumonia, need for IV access. PROCEDURE: insertion of left subclavian triple lumen catheter. SURGEON: Rafa Douglass MD CHEMIST STEROIDS: ANESTHESIA: local anesthesia with 1% lidocain3. ESTIMATED BLOOD LOSS: Approximately 3 mL. COMPLICATIONS: none, postprocedure CXR seen, adequate position, no pneumothrorax. REMARKS: 80-year-old male with known history of rectal cancer status post diverting colostomy presents with sepsis presumably from bilateral pneumonia, mild hypotension. They lost the prophylaxis and could not get any prophylaxis and I was asked to place a more stable vascular access for administration of his medications. DESCRIPTION OF PROCEDURE: Consent was obtained from the patient. He is awake, alert and oriented. He remain in the room and he was placed on a slight reverse Trendelenburg position. He was on a continuous benzene washer operator. Oxygen provided via facemask.We paused for a surgical timeout using both pre-incision safety checklist to verify correct patient, procedure site and additional clinical information prior to beginning the procedure. We used a central line bundle. His left neck and chest is prepped and draped in the usual sterile fashion. Patient has a very thin body habitus with visible clavicle and ribs. Using an infraclavicular approach the finder needle was inserted subcutaneously towards the manubrium sternum from the medial two thirds of the clavicle and the subclavian vein was located with 2 sticks. Guidewire was threaded through the needle and the needle was removed. Using modified sounder technique the tract was dilated and exchanged for a triple-lumen catheter. This was placed at 18 cm at the skin level. All 3 ports were aspirating and flushing well. The catheter was secured to the skin in an antibiotic-containing nonocclusive dressing placed. Patient remained stable throughout the procedure. A postoperative chest x-ray was taken and have reviewed the images myself. This shows good position without any evidence of pneumothorax. RAFA DOUGLASS MD Oct 20, 2020 12:42
--- NOTE | 2020-10-20 15:20 | IPNPDOC ---
Text Note Date of Service The patient was seen on 10/20/20. NOTE SUBJECTIVE: -Was transferred to ICU yesterday for hypotension with borderline septic shock and then later back to PCU after fluids response. However overnight was hypotensive and received 2 more liters of NS for hypotension -Still remains lethargic, now on 2L NC PHYSICAL EXAMINATION: VITAL SIGNS: see below. BP this AM is 121/57, on 2L NC, afebrile GENERAL: Arousable but lethargic HEENT: PERRLA, EOMI, dry MM NECK: Supple, no noted JVD CHEST/LUNGS: Decreased breath sounds bilaterally with with posterior bibasilar crackles and rhonchi bilaterally HEART: Regular rate and rhythm. No murmurs, rubs, or gallops are appreciated. ABDOMEN: Normoactive bowel sounds, soft, nontender, and nondistended. Colostomy bag is present in the left lower quadrant with brown liquid stool. Negative Reynolds's. no rebound or involuntary guarding EXTREMITIES: 2+ pitting edema up to the ankles. WWP SKIN: Scattered bruises on both upper and lower extremities NEUROLOGIC: Lethargic, moving all extremities, no facial asymmetry LABORATORY DATA: reviewed WBC 15.1 UA was +++ --> with pending urine Cx hgb 9 platelets 216 Cr 1.64 K 3.3 (repleted) Mag 1.2 (repleted) Na 148 IMAGING: CT HEAD: FINDINGS: Brain: Cerebral volume loss and chronic white matter changes. Chronic basal ganglia lacunar infarctions are not significantly changed. No intracranial hemorrhage. No midline shift or herniation. Cerebral ventricles: No ventriculomegaly. Bones/joints: Unremarkable. No acute fracture. Paranasal sinuses: Visualized sinuses are unremarkable. No fluid levels. Mastoid air cells: Visualized mastoid air cells are well aerated. Soft tissues: Unremarkable. IMPRESSION: 1. Cerebral volume loss and chronic white matter changes. 2. No acute intracranial abnormality. CXR: FINDINGS: Lungs: Left greater than right basilar airspace consolidation. Pleural space: No pleural effusion. No pneumothorax. Heart/Mediastinum: Unremarkable. No cardiomegaly. Bones/joints: Unremarkable. Intraperitoneal space: There is pneumoperitoneum under the right hemidiaphragm. Gastrointestinal tract: Mild gaseous distention of visualized bowel in the upper abdomen. IMPRESSION: 1. Pneumoperitoneum. 2. Bibasilar pneumonia, worse on the left. 3. Gaseous distention of visualized bowel in the upper abdomen. CHEST CT: FINDINGS: Lungs: There is multifocal airspace consolidation in both lungs, worse on the left. Pleural space: Small left pleural effusion. No pneumothorax. Heart: Normal heart size. Mild coronary artery atherosclerotic disease. Aorta: Unremarkable. No aortic aneurysm. Lymph nodes: Unremarkable. No enlarged lymph nodes. Bones/joints: Skeletal degenerative changes are noted. Soft tissues: Unremarkable. IMPRESSION: 1. Bilateral pneumonia, worse on the left. 2. Small left pleural effusion. 3. Coronary artery disease. CT ABD/PEL: IMPRESSION: 1. Mild distention of the colon proximal to the ostomy. Wall thickening in the splenic flexure may be an artifact related to nondistention. No proximal colonic obstruction is seen. 2. Worsening fluid dilation of the colon distal to the left lower quadrant suture line. Stable appearance of irregular circumferential mass in the rectum with sinus tract extending to the right large sheetfed press operator internus muscle. 3. No pneumoperitoneum or abscess. 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 4. Thick-walled urinary bladder suggesting cystitis. Hydronephrosis has resolved. MICROBIOLOGY: Please see below. ASSESSMENT: 80 YO M with history of recently diagnosed rectal cancer s/p colostomy and bladder outlet obstruction requiring chronic indwelling sands who was brought in from [facility] after being found obtunded, unresponsive with vomitus on his pillow and admitted for sepsis 2/2 bilateral multifocal PNA and CAUTI. PLAN: 1. Sepsis, bordering septic shock: 2/2 bilateral multifocal PNA and possible CAUTI -Temp 101.3, HR 122, RR 30, Lactic acidosis, suspected source -continue Vancomycin/Zosyn, day 3 -MRSA + -Switch fluids to 20meqK in 1/2NS continue @ 150cc/hr -aspiration precautions -resp panel was negative -supplemental O2 -MAP goal >65 -TLC in place, appreciate Dr. Douglass's help with placement 2. Acute hypoxic respiratory failure 2/2 bilateral pneumonia: -Respiratory panel negative -AB.229/19.6/59 -Empiric antibiotics as stated above -procalcitonin, CRP, sputum culture, Legionella, urine strep pending 3. OMAR on CKD III: improving -Cr found to be 2.09, improving with fluids -Difficult to determine baseline Cr, but appears to be 1.5 -receiving aggressive fluids, f/u repeat BMP 4. Chronic indwelling sands with possible CAUTI: -Nursing notes urine was cloudy on admission -UA positive for possible UTI although patient may be chronically colonized due to his chronic sands -Covered with empiric antibiotics as above -Sands was exchanged 5. Recent vomiting with ongoing lethargy: -NPO for now -Aspiration precautions, elevate head of bed 6. Lethargy likely metabolic encephalopathy i/s/o sepsis -CT head without acute pathology -septic --> treatment as noted above DVT ppx: SQH DISPO:Pending clinical improvement. Patient is DNR/DNI VS,E[place]one, I+O VS, Brittnie, I+O Laboratory Tests 10/20/20 02:30 10/20/20 06:03 Vital Signs Date Time Temp Pulse Resp B/P (MAP) Pulse Ox O2 Delivery O2 Flow Rate FiO2 10/20/20 08:00 2.0 10/20/20 08:00 97.3 93 20 121/57 (78) 92 Room Air I&O- Last 24 Hours up to 6 AM 10/20/20 06:00 Intake Total 4795 ml Output Total 630 ml Balance 4165 ml SARWAT BROOKE MD Oct 20, 2020 08:47
[2020-10-21] VITALS (8 sets, daily range): BP systolic 95–128; BP diastolic 60–71
[2020-10-21] MEDS: VANCOMYCIN HCL 1,000 MG, VIAL MATE ADAPTER 1 EACH in D5W 250 ML IV SCH ×3
[2020-10-21] MEDS: KCL 20MEQ IN 0.45NS 1000ML 1,000 ML IV SCH (02:25)
[2020-10-21] MEDS: IPRATROPIUM 0.5MG/ALBUTEROL 2.5MG INH SOL UD 3ML (DUONEB) INH SCH ×5 (03:32→16:00)
[2020-10-21] MEDS ORDERED: SODIUM CHLORIDE 0.9% INJ 10 ML SYR IV PRN (04:45)
[2020-10-21] MEDS: PIPERACILLIN/TAZOBACTAM SOD 3.375 GM in D5W MINI-BAG PLUS 50 ML IV SCH ×2 (04:45→12:13)
[2020-10-21 04:52] LABS: HEMATOCRIT 28.2 % (42.0-52.0); HEMOGLOBIN 9.2 g/dl (13.5-17.5); MEAN CORPUSCULAR HEMOGLOBIN 30.5 pg (27.0-33.0); MEAN CORPUSCULAR HGB CONC 32.6 g/dl (32.0-36.5); MEAN CORPUSCULAR VOLUME 93.4 fl (80.0-96.0); PLATELET COUNT, AUTOMATED 227 10^3/uL (150-450); RED BLOOD COUNT 3.02 10^6/uL (4.30-6.10); WHITE BLOOD COUNT 15.9 10^3/uL (4.0-10.0)
[2020-10-21 05:23] LABS: ALBUMIN 1.4 GM/DL (3.2-5.2); BILIRUBIN,TOTAL 0.4 MG/DL (0.2-1.0); CALCIUM LEVEL 8.3 MG/DL (8.8-10.2); CREATININE FOR GFR 1.75 MG/DL (0.70-1.30); GLOMERULAR FILTRATION RATE 39.9 (>35); TOTAL PROTEIN 5.1 GM/DL (6.4-8.2)
[2020-10-21] MEDS: SODIUM CHLORIDE 0.9% INJ 10 ML SYR IV SCH ×2 (06:19→14:00)
[2020-10-21] MEDS: HEPARIN SOD (PORCINE) 5000UNITS/ML 1ML VIAL/SYRINGE SC SCH (08:05)
--- NOTE | 2020-10-21 10:21 | IPNPDOC ---
Text Note Date of Service The patient was seen on 10/21/20. NOTE SUBJECTIVE: -Finally a bit more awake and verbal. On 2L NC PHYSICAL EXAMINATION: VITAL SIGNS: see below. BP this AM is 121/57, on 2L NC, afebrile GENERAL: More alert this AM, some speech and oriented, ill appearing HEENT: PERRLA, EOMI, dry MM NECK: Supple, no noted JVD CHEST/LUNGS: Decreased breath sounds bilaterally with with posterior bibasilar crackles and rhonchi bilaterally HEART: Regular rate and rhythm. No murmurs, rubs, or gallops are appreciated. ABDOMEN: Normoactive bowel sounds, soft, nontender, and nondistended. Colostomy bag is present in the left lower quadrant with brown liquid stool. Negative Reynolds's. no rebound or involuntary guarding EXTREMITIES: 2+ pitting edema up to the ankles. WWP SKIN: Scattered bruises on both upper and lower extremities NEUROLOGIC: moving all extremities, no facial asymmetry LABORATORY DATA: reviewed K 3.0 (repleted) Cr 1.75 Micro: staph epi, methicillin resistant in urine IMAGING: CT HEAD: FINDINGS: Brain: Cerebral volume loss and chronic white matter changes. Chronic basal ganglia lacunar infarctions are not significantly changed. No intracranial hemorrhage. No midline shift or herniation. Cerebral ventricles: No ventriculomegaly. Bones/joints: Unremarkable. No acute fracture. Paranasal sinuses: Visualized sinuses are unremarkable. No fluid levels. Mastoid air cells: Visualized mastoid air cells are well aerated. Soft tissues: Unremarkable. IMPRESSION: 1. Cerebral volume loss and chronic white matter changes. 2. No acute intracranial abnormality. CXR: FINDINGS: Lungs: Left greater than right basilar airspace consolidation. Pleural space: No pleural effusion. No pneumothorax. Heart/Mediastinum: Unremarkable. No cardiomegaly. Bones/joints: Unremarkable. Intraperitoneal space: There is pneumoperitoneum under the right hemidiaphragm. Gastrointestinal tract: Mild gaseous distention of visualized bowel in the upper abdomen. IMPRESSION: 1. Pneumoperitoneum. 2. Bibasilar pneumonia, worse on the left. 3. Gaseous distention of visualized bowel in the upper abdomen. CHEST CT: FINDINGS: Lungs: There is multifocal airspace consolidation in both lungs, worse on the left. Pleural space: Small left pleural effusion. No pneumothorax. Heart: Normal heart size. Mild coronary artery atherosclerotic disease. Aorta: Unremarkable. No aortic aneurysm. Lymph nodes: Unremarkable. No enlarged lymph nodes. Bones/joints: Skeletal degenerative changes are noted. Soft tissues: Unremarkable. IMPRESSION: 1. Bilateral pneumonia, worse on the left. 2. Small left pleural effusion. 3. Coronary artery disease. CT ABD/PEL: IMPRESSION: 1. Mild distention of the colon proximal to the ostomy. Wall thickening in the splenic flexure may be an artifact related to nondistention. No proximal colonic obstruction is seen. 2. Worsening fluid dilation of the colon distal to the left lower quadrant suture line. Stable appearance of irregular circumferential mass in the rectum with sinus tract extending to the right core winder machine operator internus muscle. 3. No pneumoperitoneum or abscess. 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 4. Thick-walled urinary bladder suggesting cystitis. Hydronephrosis has resolved. MICROBIOLOGY: Please see below. ASSESSMENT: 80 YO M with history of recently diagnosed rectal cancer s/p colostomy and bladder outlet obstruction requiring chronic indwelling sands who was brought in from [facility] after being found obtunded, unresponsive with vomitus on his pillow and admitted for sepsis 2/2 bilateral multifocal PNA and CAUTI. PLAN: 1. Sepsis, bordering septic shock: 2/2 bilateral multifocal PNA and possible CAUTI -Temp 101.3, HR 122, RR 30, Lactic acidosis, suspected source -continue Vancomycin/Zosyn, day 4 -MRSA + -aspiration precautions -resp panel was negative -supplemental O2 -MAP goal >65 -TLC in place, appreciate Dr. Douglass's help with placement 2. Acute hypoxic respiratory failure 2/2 bilateral pneumonia: -Respiratory panel negative -AB.229/19.6/59 -Empiric antibiotics as stated above -procalcitonin, CRP, sputum culture, Legionella, urine strep pending 3. OMAR on CKD III: improving -Cr found to be 2.09, improving with fluids -Difficult to determine baseline Cr, but appears to be 1.5 -receiving aggressive fluids, f/u repeat BMP 4. Chronic indwelling sands with methicillin resistant staph epi CAUTI: -Covered with vanc, day 4 -Sands was exchanged 5. Recent vomiting with recent lethargy: -Now more awake --> will do speech bedside swallow eval before beginning a diet -Aspiration precautions, elevate head of bed 6. Lethargy likely metabolic encephalopathy i/s/o sepsis -CT head without acute pathology -septic --> treatment as noted above DVT ppx: SQH DISPO:Pending clinical improvement. Patient is DNR/DNI VS,Fishbone, I+O VS, Fishbone, I+O Laboratory Tests 10/21/20 04:30 Vital Signs Date Time Temp Pulse Resp B/P (MAP) Pulse Ox O2 Delivery O2 Flow Rate FiO2 10/21/20 05:03 89 28 128/65 (86) 99 Nasal Cannula 2.0 10/21/20 04:00 97.5 I&O- Last 24 Hours up to 6 AM 10/21/20 05:59 Intake Total 4644 ml Output Total 875 ml Balance 3769 ml SARWAT BROOKE MD Oct 21, 2020 10:21
[2020-10-21] MEDS: KCL 20MEQ IN 100ML SWI (KRUN) 20 MEQ in IV 1 EA IV SCH ×6 (12:13→15:45)
[2020-10-21 13:17] LABS: ABG BASE EXCESS -20.3 (-2.0-2.0); ABG HCO3 5.2 MEQ/L (22.0-26.0); ABG O2 SATURATION 90.7 % (95.0-99.0); ABG PARTIAL PRESSURE O2 68.9 mmHg (75.0-100.0); ABG STANDARD HCO3 9.4 MEQ/L (22.0-26.0); ABG TOTAL CO2 5.6 MEQ/L (23.0-31.0)
[2020-10-21 13:21] LABS: ABG pH (ARTERIAL) 7.211 UNITS (7.350-7.450)
[2020-10-21 13:22] LABS: ABG PARTIAL PRESSURE CO2 13.2 mmHg (35.0-45.0)
[2020-10-21] MEDS ORDERED: HEPARIN DRIP 25,000 UNITS in IV 1 EA IV SCH (13:46)
[2020-10-21] MEDS ORDERED: HEPARIN SOD (PORCINE) 5000UNITS/ML 1ML VIAL/SYRINGE IV ONE (14:00)
[2020-10-21] MEDS ORDERED: HEPARIN SOD (PORCINE) 5000UNITS/ML 1ML VIAL/SYRINGE IV PRN (14:00)
--- NOTE | 2020-10-21 14:32 | REP ---
INDICATION: AMS, tachypnea, hypoxemia. COMPARISON: Comparison portable chest x-ray October 19, 2020. TECHNIQUE: Portable upright AP chest radiograph. FINDINGS: The previously noted left perihilar infiltrate is again seen and appears a little more opaque. There is more extensive interstitial infiltrate in the left superior perihilar region. A new infiltrate is noted in the right upper perihilar region. Patchy infiltrates are seen in the right base as well. A left-sided central venous line is again noted in place. Monitoring electrodes are seen. Heart size is unchanged and not enlarged.. IMPRESSION: Progressive infiltrates bilaterally. New area of infiltrate right upper lobe region.. <Electronically signed by Doe Solorio > 10/21/20 [id number]
--- NOTE | 2020-10-21 15:13 | REP ---
INDICATION: r/o DVT. COMPARISON: Comparison sonography August 11, 2019.. TECHNIQUE: Bilateral lower extremity duplex venous ultrasound. FINDINGS: There is extensive bilateral occlusive deep vein thrombosis extending from the popliteal veins proximal to the common femoral vein segments bilaterally. The femoral veins are partially duplicated and the duplicated segments are patent.. IMPRESSION: Positive study for extensive occlusive bilateral lower extremity deep venous thrombosis, extending from the common femoral veins distally to the popliteal veins.. <Electronically signed by Doe Solorio > 10/21/20 [id number]
--- NOTE | 2020-10-21 16:05 | ECGEPIP ---
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
[2020-10-21] MEDS ORDERED: MORPHINE 2 MG/ML 1ML VIAL (J2270) IV PRN (18:45)
[2020-10-21] MEDS ORDERED: LORazepam 2 MG/ML VIAL IV PRN (18:45)
[2020-10-21] MEDS ORDERED: BISACODYL 10 MG SUPP PR PRN (18:45)
[2020-10-21] MEDS ORDERED: SCOPOLAMINE 1MG TRANSDERMAL PATCH TOP PRN (18:45)
[2020-10-21] MEDS ORDERED: FLEET ENEMA PR PRN (18:45)
[2020-10-21] MEDS ORDERED: ONDANSETRON 4MG/2ML VIAL IV PRN (18:45)
[2020-10-21] MEDS ORDERED: ATROPINE SULFATE 1% OP SOLN 2 ML BTL SL PRN (18:45)
[2020-10-21] MEDS ORDERED: HYOSCYAMINE SULFATE 0.125 MG SUBL TABLET PO PRN (18:45)
--- NOTE | 2020-10-22 09:47 | DS.PDOC ---
Discharge Summary General Date of Admission Oct 19, 2020 at 06:02 Date of Discharge 10/21/2020 Attending Physician: SARWAT BROOKE MD Discharge Summary PROCEDURES PERFORMED DURING STAY: Subclavian TLC placement. ADMITTING DIAGNOSES: Sepsis CAP DISCHARGE DIAGNOSES: Severe sepsis CAP Mixed rashawn CAUTI Hypoxemic respiratory failure Acute extensive occlusive bilateral lower extremity deep venous thrombosis Probable pulmonary embolism HTN Hx DVT in RLE 2012 Rectal cancer with rectal obstruction s/p laparoscopy with end-colostomy Bladder outlet obstruction with chronic indwelling sands catheter Hx pulmonary nodules B12 deficiency Small vessel cerebrovascular disease CKD 3 Gastric polyps Adenomyomatosis of the gallbladder Kidney and liver cysts Subclinical hypothyroidism COMPLICATIONS/CHIEF COMPLAINT: Pneumonia, Sepsis. HISTORY OF PRESENT ILLNESS: Steve Sosa was an 80 YO M with history of recently resected rectal cancer, bladder outlet obstruction with chronic indwelling sands catheter who presents to ED from [facility] after being found obtunded and unresponsive with vomit in his bed. Per [facility] nursing, patient was alert and oriented and joking with the staff prior to bed the evening prior. He was found at approximately 0120 with vomit on his pillowcase. He was responsive to voice, opening his eyes but did not converse. HOSPITAL COURSE: Upon arrival to the ED it was noted that the patient had cloudy urine in his existing Sands and bright red blood coming from his rectum. He was also found to be febrile with a rectal temperature of 103.1. He was started on vancomycin and zosyn with imaging showing PNA and UA grossly positive. He was admitted to the ICU for severe sepsis with borderline septic shock but was responsive to aggressive fluid rescuscitation. He continued to be encephalopathic over the next 72h and eventually was alert and speaking on 10/21 AM. He unfortunately acutely became unresponsive and his peripheries were noted to be mottling, cold and LE were dramatically more edematous than prior. He was immediately started on a heparin gtt for potential VTE with concern for PE and bilateral LE US confirmed extensive DVTs. His oxygen requirements increased and his breathing became agonal. Being DNR/DNI, I called his daughter to discuss his course and GOC and requested that if she desired it would be appropriate to come in and visit with him. She came in and decided to make him BEAN SORTER and at 7.15 PM on 10/21/2020 with daughter at bedside. DISCHARGE MEDICATIONS: Please see below. ALLERGIES: Please see below. PHYSICAL EXAMINATION ON DISCHARGE: I WAS NOT PRESENT WHEN HE IT WAS OVERNIGHT. LABORATORY DATA: Please see below. IMAGING: head CT: 1. Cerebral volume loss and chronic white matter changes. 2. No acute intracranial abnormality. Admission CXR: 1. Pneumoperitoneum. 2. Bibasilar pneumonia, worse on the left. 3. Gaseous distention of visualized bowel in the upper abdomen. Chest CT: Lungs: There is multifocal airspace consolidation in both lungs, worse on the left. Pleural space: Small left pleural effusion. No pneumothorax. Heart: Normal heart size. Mild coronary artery atherosclerotic disease. Aorta: Unremarkable. No aortic aneurysm. Lymph nodes: Unremarkable. No enlarged lymph nodes. Bones/joints: Skeletal degenerative changes are noted. Soft tissues: Unremarkable. IMPRESSION: 1. Bilateral pneumonia, worse on the left. 2. Small left pleural effusion. 3. Coronary artery disease. CT A/P: Liver: Multiple cysts in the liver are unchanged. No new liver masses. There is interposition of the hepatic flexure between the liver in the right hemidiaphragm. Gallbladder and bile ducts: Normal. No calcified stones. No ductal dilation. Pancreas: 1.7 cm cyst in the pancreatic tail is unchanged. No new pancreatic mass or duct dilation. Spleen: Normal. No splenomegaly. Adrenal glands: Left adrenal hyperplasia. Kidneys and ureters: Multiple bilateral renal cysts are unchanged. Hydronephrosis seen on the prior exam has resolved. Stomach and bowel: Stomach is mildly distended with air. No gastric outlet obstruction. Irregular circumferential rectal mass with surrounding nodularity and presacral soft tissue edema is not significantly changed. There is a tract extending through the right rectal wall to the right string winding machine operator internus muscle with associated muscular thickening and edema, not significantly changed. The rectum and sigmoid colon proximal to the mass is severely dilated with fluid, more severe than on the prior exam. The colon remains dilated to a suture line in the left pelvis. The colon proximal to the ostomy is dilated with air and fluid, slightly worse since the previous exam. Mild wall thickening in the splenic flexure of the colon. Colonic diverticulosis is present. Small bowel is unremarkable. Appendix: Not visualized. Intraperitoneal space: No pneumoperitoneum or abscess. Vasculature: Fusiform infrarenal abdominal aortic aneurysm measuring 3.0 cm is unchanged. Vasculature: Unremarkable. No abdominal aortic aneurysm. Lymph nodes: Unremarkable. No enlarged lymph nodes. Urinary bladder: There is a Sands catheter in the urinary bladder. There is circumferential wall thickening and calculi in the urinary bladder. Reproductive: Prostate gland is enlarged. Bones/joints: There are advanced degenerative changes in the spine and pelvis. Small right hip joint effusion. Chronic L2 compression fracture. Soft tissues: Generalized subcutaneous edema. IMPRESSION: 1. Mild distention of the colon proximal to the ostomy. Wall thickening in the splenic flexure may be an artifact related to nondistention. No proximal colonic obstruction is seen. 2. Worsening fluid dilation of the colon distal to the left lower quadrant suture line. Stable appearance of irregular circumferential mass in the rectum with sinus tract extending to the right string winding machine operator internus muscle. 3. No pneumoperitoneum or abscess. 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 4. Thick-walled urinary bladder suggesting cystitis. Hydronephrosis has resolved. Post TLC placement CXR: Left perihilar and bibasilar infiltrates unchanged. Left subclavian line it appears in good position. No complication is seen. 10/21/2020 CXR: Progressive infiltrates bilaterally. New area of infiltrate right upper lobe region. 10/21 LE bilateral venous doppler US: There is extensive bilateral occlusive deep vein thrombosis extending from the popliteal veins proximal to the common femoral vein segments bilaterally. The femoral veins are partially duplicated and the duplicated segments are patent.. IMPRESSION: Positive study for extensive occlusive bilateral lower extremity deep venous thrombosis, extending from the common femoral veins distally to the popliteal veins.. PROGNOSIS: ACTIVITY: DIET: DISCHARGE PLAN: DISPOSITION: 20 . DISCHARGE INSTRUCTIONS: ITEMS TO FOLLOWUP ON ON OUTPATIENT: DISCHARGE CONDITION: TIME SPENT ON DISCHARGE: 43 minutes. Vital Signs/I&Os Vital Signs Date Time Temp Pulse Resp B/P (MAP) Pulse Ox O2 Delivery O2 Flow Rate FiO2 10/21/20 17:53 94 HVNI-Vapotherm 15.0 100 10/21/20 16:00 96.2 116 42 108/62 (77) I&O- Last 24 Hours up to 6 AM 10/22/20 06:00 Intake Total 50 ml Output Total 0 ml Balance 50 ml Laboratory Data Labs 24H Laboratory Tests 2 10/21/20 13:02: Blood Gas Bicarbonate Standard 9.4L, Arterial Blood pH 7.211*L, Arterial Blood Partial Pressure CO2 13.2*L, Arterial Blood Partial Pressure O2 68.9L, Arterial Blood Total CO2 5.6L, Arterial Blood HCO3 5.2L, Arterial Blood Base Excess - 20.3L, Arterial Blood Oxygen Saturation 90.7L 10/21/20 14:16: Troponin I < 0.02 10/21/20 14:17: Activated Partial Thromboplast Time 31.5, D-Dimer, Quantitative > 4000H, Lactic Acid Level 4.1*H 10/21/20 15:58: Coronavirus (COVID-19)(PCR) NEGATIVE Microbiology Microbiology 10/19/20 Respiratory Virus Panel (PCR) ([facility]) - Final, Complete 10/19/20 Blood Culture - Preliminary, Resulted No Growth after 72 hours. All specime... 10/19/20 Blood Culture - Preliminary, Resulted No Growth after 72 hours. All specime... 10/19/20 Urine Culture - Final, Complete Staphylococcus Epidermidis Discharge Medications Scheduled Cyanocobalamin (Vitamin B-12) (B-12) 1,000 Mcg Tablet, 1,000 MCG PO DAILY, (Reported) Duloxetine Hcl (Duloxetine HCl) 60 Mg Capsule.dr, 60 MG PO DAILY, (Reported) Lactose-Reduced Food (Ensure Enlive) 237 Ml Liquid, 237 ML PO TID, (Reported) 0900, 1300, 2000 Mirtazapine (Remeron) 15 Mg Tablet, 15 MG PO QHS, (Reported) Sennosides/Docusate Sodium (Senna Plus Tablet) 1 Each Tablet, 2 TAB PO DAILY, (Reported) Scheduled PRN Acetaminophen (Tylenol Extra Strength) 500 Mg Tablet, 500 MG PO Q6H PRN for PAIN, (Reported) Ibuprofen (Ibuprofen) 200 Mg Tablet, 400 MG PO Q6H PRN for PAIN OR DISCOMFORT, (Reported) Milk Of Magnesia (Milk of Magnesia) 2,400 Mg/10 Ml Oral.susp, 10 ML PO DAILY PRN for CONSTIPATION, (Reported) Allergies Coded Allergies: sulfamethoxazole (Verified Allergy, Unknown, 09/14/20) SARWAT BROOKE MD Oct 22, 2020 09:47
[2020-10-22 14:09] LABS: BODY FLUID CULTURE Not indicated. (.); LEGIONELLA ANTIGEN URINE Negative (Negative); ORGANISM ID Not indicated. (.); SPECIMEN SOURCE Urine (.); URINE STREP PNEUMONIAE ANTIGEN Negative (Negative)
== END 2020-10-21 19:59 | disposition expired | DRG 871 ==
LOC: M ED 02:25 → M ED INP 06:02 → M PCU 14:03
PROVIDERS: ADMIT Family Medicine; ATTEND Internal Medicine
PROC: 05H633Z Insertion of Infusion Device into Left Subclavian Vein, Percutaneous Approach (ICD-10-PCS; principal; 2020-10-19)
DX: A41.9 Sepsis, unspecified organism (principal); J18.9 Pneumonia, unspecified organism; J96.01 Acute respiratory failure with hypoxia; G93.41 Metabolic encephalopathy; I26.99 Other pulmonary embolism without acute cor pulmonale; E87.0 Hyperosmolality and hypernatremia; N17.9 Acute kidney failure, unspecified; T83.511A Infection and inflammatory reaction due to indwelling urethral catheter, initial encounter; N39.0 Urinary tract infection, site not specified; I82.433 Acute embolism and thrombosis of popliteal vein, bilateral; I82.413 Acute embolism and thrombosis of femoral vein, bilateral; N18.30 Chronic kidney disease, stage 3 unspecified; E02 Subclinical iodine-deficiency hypothyroidism; K76.89 Other specified diseases of liver; N28.1 Cyst of kidney, acquired; E53.8 Deficiency of other specified B group vitamins; I12.9 Hypertensive chronic kidney disease with stage 1 through stage 4 chronic kidney disease, or unspecified chronic kidney disease; Z85.048 Personal history of other malignant neoplasm of rectum, rectosigmoid junction, and anus; Z79.899 Other long term (current) drug therapy; Z88.2 Allergy status to sulfonamides; Y84.6 Urinary catheterization as the cause of abnormal reaction of the patient, or of later complication, without mention of misadventure at the time of the procedure